=== PATIENT | female | born 1965 | race Caucasian/White ===

== ENCOUNTER 2019-12-05 07:16 | Day surgery (SDC) | payer OTHER, SELFPAY | END 2019-12-05 10:05 | disposition home or self-care (01) | LOC: CHSSURGERY 07:20 | PROVIDERS: PCP Internal Medicine; Visit Provider Surgery | DX: K21.9 Gastro-esophageal reflux disease without esophagitis (principal); K29.80 Duodenitis without bleeding; K44.9 Diaphragmatic hernia without obstruction or gangrene | CPT/HCPCS: 43239; 811; 87081; 88305; J2704; J7120 ==

== ENCOUNTER 2019-12-18 09:54 | Outpatient (CLI) | payer OTHER, SELFPAY ==
--- NOTE | ~2019-12-18 | DEXA_ITS ---
Bone Density Report Name: Lisa Garcias Age: 53 Sex: Female Ethnicity: White Date of : 1965 Indication: osteopenia; prior fracture; cancer; postmenopausal Referring Provider: Keshia Parker Study: Bone densitometry was performed. Exam Date: December 18, 2019 Accession number: [id number] Bone Density: Region BMD T-score Z-score Classification AP Spine (L1-L4) 0.797 -2.3 -1.3 Osteopenia Femoral Neck (Left) 0.675 -1.6 -0.6 Osteopenia Total Hip (Left) 0.859 -0.7 -0.1 Normal Total Hip Bilateral Avg 0.825 -0.9 -0.4 Normal Femoral Neck (Right) 0.618 -2.1 -1.1 Osteopenia Total Hip (Right) 0.790 -1.2 -0.6 Osteopenia World Health Organization criteria for BMD impression classify patients as: Normal (T-score at or above -1.0), Osteopenia (T-score between -1.0 and -2.5), or Osteoporosis (T-score at or below -2.5). 10-year Fracture Risk(1): Major Osteoporotic Fracture 13% Hip Fracture 1.7% Reported Risk Factors: [place] (), Neck BMD=0.618, BMI=30.2, previous fracture (1) FRAX(R) Version 3.08. Fracture probability calculated for an untreated patient. Fracture probability may be lower if the patient has received treatment. Previous Exams: Region Exam Age BMD T-score BMD Change BMD Change Date g/cm2 vs Baseline vs Previous AP Spine(L1-L4) 12/18/2019 53 0.797 -2.3 -0.027(-3.3%)* -0.014(-1.7%) 11/30/2016 50 0.810 -2.2 -0.014(-1.7%) -0.014(-1.7%) 11/11/2014 48 0.824 -2.0 Total Hip(Left) 12/18/2019 53 0.859 -0.7 0.051(6.3%)* 0.029(3.5%)* 11/30/2016 50 0.830 -0.9 0.022(2.7%) 0.022(2.7%) 11/11/2014 48 0.808 -1.1 Total Hip(Right) 12/18/2019 53 0.790 -1.2 0.029(3.8%)* 0.030(3.9%)* 11/30/2016 50 0.760 -1.5 -0.001(-0.1%) -0.001(-0.1%) 11/11/2014 48 0.761 -1.5 *Denotes significance at 95% confidence level, LSC for AP Spine = 0.022 g/cm2, LSC for Total Hip = 0.027 g/cm2 Clinical Information Provided by Patient: Has had a low trauma fracture Has the following medical conditions: Cancer Patient maximum height was 62 Menopause Age: 46 No regular weight bearing exercise Does not regularly consume dairy products Drinks caffeinated beverages Onset of menses at age 13 Number of children 4 Impression: The patient has low bone mass, based on the Total Spine T-score. The patient has an estimated ten-year risk of hip fracture of 1.7% and an estimated ten-year risk of major fracture of 13%, bas
--- NOTE | ~2019-12-18 | MM_ITS ---
EXAMINATION: MM screening betzy BI w tea HISTORY: Screening mammogram TECHNIQUE: Craniocaudal and mediolateral oblique 3-D tomosynthesis images were obtained and synthetic 2-D images were generated. CAD analysis was submitted and interpreted. COMPARISON: Comparison to multiple prior studies sequentially, with oldest reviewed study dated 07/24. BREAST PARENCHYMAL COMPOSITION: There are scattered areas of fibroglandular density. FINDINGS: There is no evidence of suspicious mass, calcification, or architectural distortion to sugg est malignancy in either breast. There has been no suspicious interval change. IMPRESSION: 1. No mammographic evidence of malignancy. 2. Recommend routine screening mammography in one year. BI-RADS Category 1: Negative Reviewed, dictated and finalized at location A. 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
== END 2019-12-18 09:55 | disposition home or self-care (01) ==
LOC: ANHIMG 09:57
PROVIDERS: PCP Internal Medicine; Visit Provider Internal Medicine
DX: Z12.31 Encounter for screening mammogram for malignant neoplasm of breast (principal); Z78.0 Asymptomatic menopausal state; M85.89 Other specified disorders of bone density and structure, multiple sites
CPT/HCPCS: 77063; 77067; 77080

== ENCOUNTER 2020-01-22 08:20 | Outpatient (CLI) | payer OTHER, SELFPAY ==
--- NOTE | ~2020-01-22 | NM_ITS ---
EXAMINATION: NM hepatobiliary w pharm DATE: 01/22/2020 10:53 INDICATION: Right upper quadrant abdominal pain. COMPARISON: Ultrasound 01/22/2020 TECHNIQUE: 4.9 mCi Tc-99m mebrofenin (Choletec) was administered intravenously. Scintigraphic images of the abdomen were obtained for one hour. Then, 1.5 mcg sincalide (Kinevac) IV was administered, an d imaging was continued for 30 minutes. FINDINGS: There is normal clearance of radiotracer from the blood pool. There is homogeneous tracer u ptake by the liver. Activity progresses to the bowel and gallbladder. Gallbladder ejection fraction (GBEF) was 56%. Note that most patients with gallbladder dysfunction have GBEF < 35%, which overlaps with the broad normal range of 10-90%. IMPRESSION: 1. Normal hepatobiliary scintigraphy. Reviewed, dictated and finalized at location A.
--- NOTE | ~2020-01-22 | US_ITS ---
EXAMINATION: US right upper quadrant DATE: 01/22/2020 08:52 INDICATION: Epigastric pain and nausea TECHNIQUE: Multiple grayscale and Doppler ultrasound images of the abdomen were obtained. COMPARISON: None available FINDINGS: The head and and body of the pancreas are normal. The pancreatic tail is obscured by bowel gas. The liver is normal with normal echogenicity and echotexture. No surface nodularity. Normal hepa topetal flow in the main portal vein. The gallbladder is normal with no abnormal wall thickening, per icholecystic fluid or stones. The normal common bile duct measures 4 mm. There was no sonographic Mur phy sign. IMPRESSION: 1. Normal sonographic study of the gallbladder. Reviewed, dictated and finalized at location A.
== END 2020-01-22 08:21 | disposition home or self-care (01) ==
LOC: CHSIMG 08:23
PROVIDERS: PCP Internal Medicine; Visit Provider Internal Medicine
DX: R10.11 Right upper quadrant pain (principal)
CPT/HCPCS: 76705; 78227; A9537; J2805

== ENCOUNTER 2020-03-31 12:55 | Outpatient (CLI) | payer OTHER, SELFPAY ==
--- NOTE | 2020-03-31 12:59 | ECHO_ITS ---
Patient Info Name: Lisa Garcias Age: 54 years : 1965 Gender: Female Ht: 62 in Wt: 168 lbs BSA: 1.85 m2 HR: 65 bpm BP: 134 / 92 mmHg Technical Quality: Good Exam Date: 03/31/2020 1:07 PM Exam Location: [facility] Patient Status: Outpatient Admit Date: 03/31/2020 Staff Ordering Physician: Aleksey Pelayo DO Waste Reduction Coordinator: Anita Walker RDCS Attending Provider: Aleksey Pelayo DO Referring Physician: Pierce LOVE; Exam Type: CA echo doppler color flow Study Info Indications R06.00 - Dyspnea, unspecified Complete two-dimensional, color flow and Doppler transthoracic echocardiogram is performed. Summary 1. Left ventricular chamber dimension is normal. 2. Left ventricular systolic function is normal, estimated at 60-65%. 3. The left ventricular diastolic function is normal. 4. E/e' 8 is minimally elevated. 5. Global longitudinal strain is normal at -17.3%. 6. There is trace mitral valve regurgitation. 7. No pulmonary hypertension, estimated pulmonary arterial systolic pressure is 24 mmHg. Left Ventricle E/e' 8 is minimally elevated. Global longitudinal strain is normal at -17.3%. Left ventricular chamber dimension is normal. Left ventricular systolic function is normal, estimated at 60-65%. The left ventricular diastolic function is normal. Right Ventricle Right ventricular chamber dimension is normal. Right ventricular systolic function is normal. Left Atria Left atrial chamber dimension is normal. Right Atria Right atrial chamber dimension is normal. Aortic Valve The aortic valve is trileaflet. There is no aortic valve stenosis. There is no aortic valve regurgitation. Pulmonic Valve There is no pulmonic regurgitation. Mitral Valve There is no mitral valve stenosis. There is trace mitral valve regurgitation. Tricuspid Valve There is no tricuspid valve regurgitation. No pulmonary hypertension, estimated pulmonary arterial systolic pressure is 24 mmHg. Pericardium/Pleural There is no pericardial effusion. Inferior Vena Cava Normal inferior vena cava with >50% collapse upon inspiration consistent with normal right atrial pressure, 5 mmHg. Aorta The aortic root size at the sinus of Valsalva is normal. Left Ventricular Outflow Tract Name Value Normal LVOT 2D LVOT Diameter 1.9 cm LVOT Doppler LVOT Peak Gradient 4 mmHg LVOT Mean Gradient 2 mmHg LVOT VTI 19 cm LVOT VTI/AV VTI Ratio 0.8 LVOT Stroke Volume 55 ml LVOT CO 3.9 l/min LVOT CI 2.1 l/min/m2 Pulmonic Valve Name Value Normal RVOT Doppler RVOT Peak Gradient 2 mmHg PV Doppler
== END 2020-03-31 12:56 | disposition home or self-care (01) ==
PROVIDERS: PCP Internal Medicine; Visit Provider Internal Medicine Cardiovascular Disease
DX: R06.00 Dyspnea, unspecified (principal)
CPT/HCPCS: 93306

== ENCOUNTER 2020-08-14 14:38 | Outpatient (CLI) | payer OTHER, SELFPAY ==
--- NOTE | 2020-09-08 16:17 | WPDHOMESLEEP ---
Sleep Study - Home Unattended Date of Study: 08/14/20 Ordering Provider: Aleksey Pelayo DO Interpreting Physician: Krystal Epstein MD Home Sleep Study Type: Apnea Link Air Height: 1.57 m Weight: 71.214 kg Body Mass Index: 28.7 [place]: 2 Reason for Sleep Study Fatigue, snoring, wakes herself snoring Sleep History Lisa Garcias is a 54 yo female with a history of fatigue, anxiety and depression. She rarely awakens from sleep feeling short of breath and rarely awakens at night with heartburn, belching or coughing. She is certain that she snores and at times, wakes herself up gasping for breath. She occasionally has trouble sleeping with a cold. She rarely has breathing problems at night reported to her by others. She rarely sweats excessively at night. She does not notice her heart pounding or beating irregularly at night. She does not fall asleep during the day, does not fall asleep involuntarily or while driving. She does not have loss of muscle tone was strong emotion. She does not have daytime difficulties due to excessive sleepiness. She currently is not working. She does not feel paralyzed on waking or falling asleep. She does rarely has vivid dreamlike scenes upon awakening or falling asleep. She is never afraid to go to sleep. she rarely has nightmares. She occasionally remembers her dreams. She occasionally has racing thoughts and occasionally feels sad depressed or anxious. She occasionally has muscular tension. She never notices parts of her body jerking. She frequently kicks at night, frequently has crawling aching feelings in the legs and leg pain during the night. She frequently has morning jaw pain. She frequently grinds her teeth during sleep. She occasionally has bothered by pain during the day. She occasionally awakens with pain at night. She constantly wakes up feeling stiff in the morning, rarely with sore or achy muscles, but she frequently wakes with pain in the neck and spine. She has headaches, palpitations, fatigue, dizziness, stomach problems, and memory problems. Normal bedtime is 10:00 p.m. falling asleep within 15 minutes waking 3 times during the night staying awake for about 10 minutes. She will let her dog out, go to the bathroom a few times per night. She wakes in the morning at 6:30 a.m. or 7:00 a.m.. We can schedule is the same. She estimates 8-1/2 hours of sleep at night. 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 She does not usually take naps. A short nap is not refreshing. She is drowsy in the morning for an hour or longer. Habits: Never smoked tobacco. Caffeine 2-3 cups of coffee in the morning. No alcohol or recreational drugs. FOR[facility]LY [facility] Past Medical History Medical History (Updated 09/08/20 @ 16:47 by Krystal Epstein MD) Depression with anxiety Dyslipidemia Heartburn Hiatal hernia History of cervical cancer 2011;s/p chemo/radiation Hyperlipidemia Osteopenia Surgical History Surgical History History of carpal tunnel repair History of inguinal hernia repair History of sinus surgery Status post tonsillectomy Social History Social History (Updated 09/08/20 @ 16:42 by Krystal Epstein MD) Smoking status: Never smoker Alcohol intake: never Substance use: never Medications Home Medications Medication Instructions Recorded Confirmed Type estradiol 0.05 mg/24 hr semiweekly 1 patch TRANSDERM 2XW 03/19/20 03/19/20 History transdermal patch omeprazole 20 mg capsule,delayed 20 mg PO DAILY 03/19/20 03/19/20 History release rosuvastatin 10 mg tablet 10 mg PO DAILY 03/19/20 03/19/20 History Sleep Procedure This test was performed using 4 channel monitoring including respiratory effort channel, snoring channel, heart rate channel, and oxygen saturation channel. This study was scored using CMS guidelines. Sleep Architecture Not applicable for home sleep test. Respiratory Manuela
[2020-09-08 17:07] VITALS: BMI 28.7
== END 2020-08-14 14:39 | disposition home or self-care (01) ==
LOC: ANHCSM 09-22 14:38
PROVIDERS: PCP Internal Medicine; Visit Provider Internal Medicine Cardiovascular Disease
DX: G47.10 Hypersomnia, unspecified (principal); R53.83 Other fatigue
CPT/HCPCS: 95806

== ENCOUNTER 2020-10-13 15:15 | Outpatient (RCR) | payer OTHER, SELFPAY ==
--- NOTE | 2020-09-14 10:55 | PTOPEVAL ---
PHYSICAL THERAPY EVALUATION AND PLAN OF CARE 09-14-2020 The PT evaluation was completed for the diagnosis of B LE lymphedema. Thank you for referring Lisa Garcias to [facility].? Lisa is scheduled to be seen for therapy? 2 x/week for 5 weeks. Please review, sign, date and return this plan of care ANAM. I agree with and certify that the following plan of care is medically necessary. Referring Physician Date Attending Provider: Keshia Parker MD *PT Outpatient Evaluation Start: 09/14/20 09:46 Document 09/14/20 09:40 TYLER (Rec: 09/14/20 10:54 TYLER [id number]) Therapy Assessment Status Assessment Status Assessment Status Evaluation Outpatient Past Medical History Past Medical History Source of Past Medical History Patient Neurological History Hx Other Neurological Disorders Yes: migraines and sinus issues Cardiovascular History Hx Hypercholesterolemia Yes: meds Respiratory History Hx Respiratory Disorders No Significant History Gastrointestinal History Hx Hernia Yes: about 6 yr ago R side Hx Other Gastrointestinal Disorders Yes: diarrhea Musculoskeletal History Hx Orthopedic Surgery Yes: B carpal tunnel surgery Hx Other Musculoskeletal Disorders Yes: joint stiffness all ove, hip pain Endocrine History Hx Endocrine Disorders No Significant History HEENT History Hx Tonsillectomy Yes Hx Other HEENT Disorders Yes: sinus surgery with septum repair Other History Hx Cancer Yes: cervical cancer with radiation and chemo ~ 7 yr ago -non surgical Evaluation Information Problem Diagnosis lymphedema R LE Onset 2017 Prior Level of Function Activity Level (Last 3 Months) Occupation no working outside of home Activity of Daily Living Ability Independent Indoor/Home Mobility Independent Community Mobility Independent Stairs Ability Independent Functional Cognition (Planning, Shopping Independent , Taking Medications) Cooking Yes Cleaning Yes Laundry Yes Shopping Yes Driving Yes Comments Additional Prior Level of Function able to do all home and self Comments care tasks indep Pain Assessment Timing of Pain Assessment Timing of Pain Assessment Assessment Pain Scale Pain Scale Used Numeric (1 - 10) Self Report Pain Assessment Right Leg(s) Reported Pain Level 1 Other Pain Description heavy, tired, sprinkling system irrigator thigh, B feet cold; Lowest Pain Intensity
--- NOTE | 2020-10-12 10:34 | PCPTNOTE ---
cancel today's appt; pt showed up at wrong time today; to be here tomorrow for reevaluation;
--- NOTE | 2020-10-13 16:12 | PTOPEVAL ---
PHYSICAL THERAPY RE-EVALUATION AND UPDATED PLAN OF CARE 10-13-2020 Refer to the clinical summary below for her status, compared to the initial evaluation. PT is to continue 0-2x/week for 3 weeks, for Lisa to obtain her compression knee high garments, complete education for them and assessment of the new garments. Once they are established, will discharge PT services. Thank you for referring Lisa Garcias to [facility].? Please review, sign, date and return this plan of care ANAM. I agree with and certify that the following plan of care is medically necessary. Referring Physician Date Attending Provider: Keshia Parker MD PT Outpatient Re-Evaluation Document 10/13/20 15:15 TYLER (Rec: 10/13/20 16:11 TYLER [id number]) Subjective Information Lisa reports: has been using Query Text:As Reported By Patient/ the home pump daily and really Family likes it, legs feel better and not have as many knots in her legs; sleeping has been good, does not problems with sleeping due to legs; to order knee highs tomorrow; did have some swelling in legs when up and active for 8 hours straight without sitting down; Pain Assessment Timing of Pain Assessment Timing of Pain Assessment Assessment Self Report Self Report Pain Level 0 Pain Score Pain Score 0: Self Report Lymphedema Evaluation Skin Inspection Location Left Lower Extremity,Right Lower Extremity Lymphedema Stage I Skin Inspection Comment R and L LE without any redness or abnormal skin color; no tenderness to touch, no fibrotic tissue over LE's; LE Circumferential Measurement Right LE Lymphedema Side Right Metatarsal Heads (cm) 20 Figure 8 of Ankle (cm) 48 8 cm From Bottom of Foot (cm) 23 12 cm From Bottom of Foot (cm) 23.2 16 cm From Bottom of Foot (cm) 25.4 20 cm From Bottom of Foot (cm) 28 24 cm From Bottom of Foot (cm) 31 28 cm From Bottom of Foot (cm) 34.5 32 cm From Bottom of Foot (cm) 36 36 cm From Bottom of Foot (cm) 35.6 40 cm From Bottom of Foot (cm) 34.4 44 cm From Bottom of Foot (cm) 36.5 48 cm From Bottom of Foot (cm) 40 52 cm From Bottom of Foot (cm) 41.5 56 cm From Bottom of Foot (cm) 47 60 cm From Bottom of Foot (cm) 51 64 cm From Bottom of Foot (cm) 52 Total Left Lower Extremity Right LE: 607.1 cm Circumferential Measurement (cm) Additional Lower Extremity Reduction 17.5 cm from
--- NOTE | 2020-11-04 11:39 | PCPTNOTE ---
PHYSICAL THERAPY DISCHARGE 11-04-2020 Attending Provider: Keshia Parker MD Patient:Lisa Garcias Date of :1965 Mrs. Garcias has not returned for any further treatments since the reevaluation on 10/13/2020, therefore she will be discharged at this time. Refer to the last reevaluation for her status at the last appointment. Thank you for referring Lisa to [facility]. Please review, sign, date and return this discharge summary ANAM. I have been updated about the patient's current status and I agree with discharge from the above service at this time. Referring Physician Date
== END 2020-11-05 11:19 | disposition home or self-care (01) ==
LOC: ANHPT 15:15
PROVIDERS: PCP Internal Medicine; Visit Provider Internal Medicine
DX: I89.0 Lymphedema, not elsewhere classified (principal)
CPT/HCPCS: 29581; 97016; 97140; 97161

== ENCOUNTER 2020-11-23 10:35 | Outpatient (CLI) | payer OTHER, SELFPAY ==
--- NOTE | ~2020-11-23 | XR_ITS ---
XR knee RT 3V DATE: 11/23/2020 11:01 INDICATION: Generalized right knee pain for one week. No known injury. TECHNIQUE: [place], AP and lateral views COMPARISON: None FINDINGS: Large suprapatellar knee joint effusion. Minimal periarticular spurring of the patella. No fracture or dislocation, periosteal reaction or bone destruction. No radiopaque intra-articular lo ose body or chondrocalcinosis. IMPRESSION: Large suprapatellar knee joint effusion Reviewed, dictated and finalized at location A. 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
== END 2020-11-23 10:36 | disposition home or self-care (01) ==
PROVIDERS: PCP Internal Medicine; Visit Provider Internal Medicine
DX: M25.561 Pain in right knee (principal)
CPT/HCPCS: 73562

== ENCOUNTER 2021-02-04 18:11 | Emergency (ER) | payer OTHER, SELFPAY ==
--- NOTE | ~2021-02-04 | CT_ITS ---
EXAMINATION: CT abdomen pelvis w con DATE: 02/04/2021 19:35 INDICATION: Low abdominal pain, nausea since this morning TECHNIQUE: Computed tomography (CT) of the abdomen and pelvis was performed with 100 cc Omnipaque 350 intravenous contrast. Automated exposure control and iterative reconstruction technique were employe d. Exam dose: 732.72 mGy-cm total exam DLP. COMPARISON: 01/22/2020 right upper quadrant abdominal ultrasound, reported normal 01/22/2020 at hepatobiliary scan, reported normal 11/13/2014 CT abdomen pelvis FINDINGS: Small bilateral fat-containing foramen of Bochdalek hernias. No infiltrate or consolidation at the lung bases. Normal heart size. No pericardial or pleural effusion. Small sliding hiatal hernia. The gallbladder is present. No pericholecystic fluid or fat stranding. Several small hepatic cysts are noted. No suspicious hepatic space-occupying mass lesion is noted. No bile duct or pancreatic duct dilatation. No pancreatic mass lesion or calcification. Normal splenic size. Occasional calcified splenic granulomas. Normal morphology of the adrenal glands. Several small left renal cysts, the largest approximately 4 mm. No other renal space occupying mass l esion is evident. No urinary tract calculus or hydroureteronephrosis is evident. Normal caliber of the abdominal aorta. No intraperitoneal or retroperitoneal or pelvic mass lesion or adenopathy or ascites is noted. There is prominent fluid accumulation within the endometrial cavity of the uterus, measuring up to 17 mm AP dimension. Gynecologic consult is recommended. Metallic artifact, apparently surgical clips, are noted in the anterior margin of the uterine cervica l area. Correlation with surgical history is recommended. The urinary bladder is unremarkable. No bowel obstruction, bowel wall thickening, pneumatosis or intraperitoneal free air is evident. No i ntraperitoneal free air. No suspicious osteolytic or osteoblastic lesions are noted. There is minimal grade 1 anterolisthesis at L4-5 due to degenerative change at the apophyseal joints. IMPRESSION: Prominent fluid distention of the endometrial cavity; endometrial malignancy is not excluded. Gynecol ogic consultation is recommended. Small sliding hiatal hernia Small left renal cysts Reviewed, dictated and finalized at [facility]. Reviewed, dictated and finalized at location [facility]. IMPRESSION: Prominent fluid distention of the endometrial cavity; endometrial malignancy is not excluded. Gynecologic consultation is recommended. Small sliding hiatal hernia Small left renal cysts
[2021-02-04 18:22] VITALS: BP 140/87; PULSE 88; RESP 16; TEMP 36.6; O2SAT 98
--- NOTE | 2021-02-04 18:31 | ECG_ITS ---
Measurements Intervals [place] Rate: 76 P: 65 SD: 176 QRS: 75 QRSD: 92 T: 57 QT: 410 QTc: 463 Interpretive Statements SINUS RHYTHM INCOMPLETE RIGHT BUNDLE BRANCH BLOCK BORDERLINE T WAVE ABNORMALITY- ANTERIOR LEADS BASELINE ARTIFACT- I, II, AVR, AVL, AVF, V1 BORDERLINE ECG Electronically Signed On 02-05-2021 0:19:13 CDT by Aleksey Pelayo D.O.
--- NOTE | 2021-02-04 18:44 | PC.NURSE ---
PT STATES SHE IS UNABLE TO PROVIDE URINE AT THIS TIME. CALL LIGHT GIVEN.
[2021-02-04] MEDS: ONDANSETRON INJ 4 MG/2 ML VIAL IV PUSH (18:47)
[2021-02-04] MEDS: SODIUM CHLORIDE 0.9% IV 1,000 ML 999 ML IV CONT (18:47)
[2021-02-04 18:52] LABS: Basophils Absolute Auto 0.02 K/mm3 (0.00-0.10); Basophils Percent Auto 0.5 % (0.0-1.0); Eosinophils Absolute Auto 0.09 K/mm3 (0.02-0.50); Eosinophils Percent Auto 2.1 % (1.0-6.0); Hematocrit 41.5 % (35.0-49.0); Hemoglobin 13.8 g/dL (12.0-15.0); Immature Granulocyte Absolute 0.01 K/mm3 (0.00-0.00); Immature Granulocyte Percent A 0.2 % (0.0-0.0); Lymphocytes Absolute Auto 1.42 K/mm3 (1.10-4.50); Lymphocytes Percent Auto 33.6 % (18.0-42.0); Mean Corpuscular HGB Conc 33.3 g/dL (32.0-36.0); Mean Corpuscular Volume 87.2 fL (78.0-102.0); Mean Platelet Volume 10.6 fl (9.2-11.8); Monocytes Absolute Auto 0.24 K/mm3 (0.10-0.90); Monocytes Percent Auto 5.7 % (2.0-11.0); Neutrophils Absolute Auto 2.5 K/mm3 (1.7-7.2); Neutrophils Percent Auto 57.9 % (50.0-70.0); Platelet Count Result 233 K/mm3 (150-420); Red Blood Count 4.76 M/mm3 (4.20-5.40); Red Cell Distribution Width 12.1 % (11.6-14.4); White Blood Count 4.2 K/mm3 (4.8-10.8)
--- NOTE | 2021-02-04 19:08 | PC.NURSE ---
Pt ambulatory to bathroom, urine sent to lab.
[2021-02-04 19:10] LABS: Alanine Aminotransferase 35 U/L (14-59); Albumin Level 3.7 g/dL (3.4-5.0); Alkaline Phosphatase 70 U/L (46-116); Anion Gap 7 mmol/L (8-16); Aspartate Amino Transferase 21 U/L (15-37); Bilirubin,Total 0.3 mg/dL (0.00-1.00); Blood Urea Nitrogen 16 mg/dL (7-18); Calcium 8.8 mg/dL (8.5-10.1); Carbon Dioxide 29 mmol/L (21-32); Chloride 104 mmol/L (98-108); Estimated CRCL calculation 54 ml/min; Estimated Glomerular Filt Rate 60; Glucose 86 mg/dL (70-99); Lactic Acid Reflex 0.4 mmol/L (0.4-2.0); Lipase 195 U/L (73-393); Osmolality Calculated 290 mOsm/kg (285-295); Potassium 3.4 mmol/L (3.5-5.1); Sodium 140 mmol/L (136-145)
--- NOTE | 2021-02-04 19:11 | PC.NURSE ---
report to usman
[2021-02-04 19:17] LABS: Add Urine Microscopic? NO; Appearance Urine Clear (Clear); Bilirubin Urine Negative (Negative); Blood Urine Negative (Negative); Color Urine Yellow (Yellow); Glucose Urine UA Negative (Negative); Ketones Urine Negative (Negative); Leukocyte Esterase Ur Negative LEU/UL (Negative); Nitrate Urine Negative (Negative); Protein Urine Negative (Negative); Urobilinogen Urine 0.2 mg/dL (0.2-1.0); pH Urine 5.5 (5.0-8.0)
[2021-02-04 19:26] LABS: Troponin I < 4.0 ng/L (0.00-60.4)
--- NOTE | 2021-02-04 20:13 | ED.GENADULT ---
HPI - General Adult General Chief complaint: Abdominal Pain Stated complaint: stomach pain, low back pain,stabbing in lower abd Source: patient Mode of arrival: ambulatory History of Present Illness HPI narrative: this is a 55-year-old female with a history of cervical cancer has been treated with chemotherapy, follows at the [facility]. The patient presents with abdominal pain suprapubic and right lower quadrant and into her right flank area started 2 to 3 days ago is intermittent sharp in nature and with some watery diarrhea and some nausea with no vomiting, no fever chills no shortness of breath no chest pain no dysuria no hematuria. Onset (ago): day(s) Location: abdomen Radiation: back, periumbilical and flank Severity: moderate Severity scale (1-10): 6 Quality: sharp Pain Consistency: intermittent and colicky Relieving factors: none Exacerbating factors: none Associated symptoms: nausea/vomiting Related Data Home Medications Medication Instructions Recorded Confirmed estradiol 0.05 mg/24 hr semiweekly 1 patch TRANSDERM 2XW 03/19/20 02/04/21 transdermal patch omeprazole 20 mg capsule,delayed 20 mg PO DAILY 03/19/20 02/04/21 release phentermine 9.375 mg PO DAILY 02/04/21 02/04/21 Allergies Allergy/AdvReac Type Severity Reaction Status Date / Time No Known Allergies Allergy Unverified 03/19/20 10:41 Review of Systems Review of Systems: All systems reviewed & are unremarkable except as noted in HPI and below PMFSH Past Medical History Medical History Depression with anxiety Dyslipidemia Heartburn Hiatal hernia History of cervical cancer 2011;s/p chemo/radiation Hyperlipidemia Osteopenia Surgical History Surgical History History of carpal tunnel repair History of inguinal hernia repair History of sinus surgery Status post tonsillectomy Social History Social History Smoking status: Never smoker Alcohol intake: never Substance use: never Exam Const: General: no acute distress Orientation/consciousness: patient oriented x3 HENMT: Head: normal to inspection Eyes: Conjunctivae: conjunctivae normal Pupils: Equal, round and reactive pupils present EOM: EOMs intact bilaterally Neck: Neck: normal visual inspection, no lymphadenopathy and no meningeal signs Chest: Chest palpation & inspection: normal inspection of the chest Cardio: Rate: regular rate Rhythm: regular rhythm GI: GI Palp: Yes Soft to palpation and Yes Tenderness to palpation present (GI) ( Tender mid umbilical suprapubic right lower quadrant and right flank pain) Auscultation: normal bowel sounds : General: Yes CVA tenderness Back/Spine/Pelvis: Back: CVA tenderness Skin: General skin exam: normal color Rashes: no rashes Neuro: General: patient oriented x3, moves all extremities and no meningeal signs Course Course Emergency Course: patient had nausea had received IV fluids, pain was well controlled prior to arrival and during her ER visit although she had nausea and received Zofran, the pain has been intermittent with watery diarrhea, received IV fluids had lab work that was reviewed with patient and her , with her history of cervical cancer and is followed by gynecology at the [facility], reviewed the CT scan with patient and her and there was distension of the endometrium and malignancy could not be excluded and radiology reported advised to follow and consult Gynecology. Vital Signs Vital signs: Vital Signs Temperature 36.6 C 02/04/21 18:22 Pulse Rate 88 02/04/21 18:22 Respiratory Rate 16 02/04/21 18:22 Blood Pressure 140/87 02/04/21 18:22 Pulse Oximetry 98 02/04/21 18:22 Temperature 36.6 C 02/04/21 18:22 Pulse Rate 88 02/04/21 18:22 Respiratory Rate 16 02/04/21 18:22 Blood Pressure 1
[2021-02-04] MEDS: ONDANSETRON HCL ODT 4 MG TABLET PO (20:16)
[2021-02-04] MEDS: traMADol HCL (*CRX) 50 MG TABLET PO (20:16)
[2021-02-04 20:21] VITALS: BP 131/95; PULSE 80; RESP 20; TEMP 36.6; O2SAT 98
== END 2021-02-04 20:29 | disposition home or self-care (01) ==
PROVIDERS: Emergency Provider Emergency Medicine; PCP Internal Medicine
DX: K52.9 Noninfective gastroenteritis and colitis, unspecified (principal); R10.11 Right upper quadrant pain
CPT/HCPCS: 36415; 74177; 80053; 81003; 83605; 83690; 84484; 85025; 93005; 96361; 96374; 99283; 99284; A9270; J2405; J7030; Q9967

== ENCOUNTER 2021-04-03 09:48 | Emergency (ER) | payer OTHER, SELFPAY ==
[2021-04-03 10:05] VITALS: BP 123/88; PULSE 91; RESP 17; TEMP 36.8; O2SAT 96
--- NOTE | 2021-04-03 10:15 | ED.FEVER ---
HPI - Fever General Chief Complaint: Fever Stated Complaint: covid symptoms Time Seen by Provider: 04/03/21 10:16 Source: patient Mode of arrival: ambulatory Limitations: no limitations History of Present Illness HPI Narrative: 55-year-old woman comes in today complaining of headache, body aches, fever, and nausea that started overnight. She states her temperature got up to 100.8. She states she has also had the chills. She recently started taking hormone therapy. She states that she has had some congestion and pressure in the left side of her nose and some ageusia but denies any cough, shortness of breath, chest pain, sore throat, or rash. She denies sick exposures and had the covid vaccine one week ago. MD elicited complaint: fever Onset (ago): hour(s) (12) Measured temperature: 38.2 C Exacerbating factors: nothing Relieving factors: nothing Associated symptoms: chills, myalgias, headache and nasal congestion Related Data Home Medications Medication Instructions Recorded Confirmed medroxyprogesterone 10 mg PO DAILY 04/03/21 04/03/21 Allergies Allergy/AdvReac Type Severity Reaction Status Date / Time No Known Allergies Allergy Unverified 03/19/20 10:41 Review of Systems Review of Systems: All systems reviewed & are unremarkable except as noted in HPI and below Constitutional: Constitutional: Reports chills and Reports fever(s) ENT: Denies dysphagia, Reports nasal congestion and Denies sore throat Cardiovascular: Cardiovascular: Denies chest pain and Denies radiating jaw, neck or arm pain Respiratory: Respiratory: Denies cough and Denies dyspnea Gastrointestinal: Gastrointestinal: Denies abdominal pain, Reports diarrhea (chronic), Denies nausea and Denies vomiting Genitourinary: Genitourinary: Denies hematuria and Denies dysuria Musculoskeletal: Musculoskeletal: Denies arthralgias and Denies joint swelling Integumentary/Breasts: Skin/Breast: Denies pruritus, Denies erythema and Denies rash Neurologic: Denies confusion, Reports headache(s), Denies numbness and Denies weakness Hematologic/Lymphatic: Hematologic/Lymphatic: Denies easy bleeding and Denies easy bruising Allergic/Immunologic: Allergic/Immunologic: Denies lip swelling and Denies throat swelling PMFSH Past Medical History Medical History Depression with anxiety Dyslipidemia Heartburn Hiatal hernia History of cervical cancer 2011;s/p chemo/radiation Hyperlipidemia Osteopenia Surgical History Surgical History History of carpal tunnel repair History of inguinal hernia repair History of sinus surgery Status post tonsillectomy Social History Social History Smoking status: Never smoker Alcohol intake: never Substance use: never Exam Const: General: healthy appearing, no acute distress and alert Orientation/consciousness: patient oriented x3 Limitations: no limitations HENMT: Head: normal to inspection Ears: TM's normal bilaterally and EAC's normal General nose exam: Normal nares present Face and sinus: normal facial exam Mouth: Yes moist mucous membranes Throat: posterior oropharynx normal Eyes: Conjunctivae: conjunctivae normal Pupils: Equal, round and reactive pupils present EOM: EOMs intact bilaterally Resp: Effort & Inspection: normal respiratory effort and not labored Auscultation: clear to auscultation bilaterally, no rales, no rhonchi and no wheezes Cardio: Rate: regular rate Rhythm: regular rhythm Heart sounds: no murmurs GI: GI Palp: Yes Soft to palpation, No Tenderness to palpation present (GI) and No Palpable mass present Skin: General skin exam: normal color, no jaundice and no pallor Rashes: no rashes Neuro: General: patient oriented x3, moves all extremities, no focal motor deficits and CN's II-XI intact bilaterally Speech: no
[2021-04-03 10:37] LABS: Appearance Urine Clear (Clear); Bilirubin Urine Negative (Negative); Blood Urine Negative (Negative); Glucose Urine UA Negative (Negative); Ketones Urine Negative (Negative); Leukocyte Esterase Ur Negative (Negative); Nitrate Urine Negative (Negative); Protein Urine Negative (Negative); Specific Grav Ur <= 1.005 (1.010-1.020); Urobilinogen Urine 0.2 mg/dL (0.2-1.0)
[2021-04-03 10:41] LABS: Add Urine Microscopic? NO; Color Urine Light Yellow (Yellow)
[2021-04-03 10:59] LABS: Influenza Control Valid (Valid)
[2021-04-03 11:28] LABS: SARS-CoV-2 RNA PCR Negative (Negative)
[2021-04-03 11:50] VITALS: RESP 17
[2021-04-03] MEDS: ACETAMINOPHEN 500 MG TABLET 1000 MG (11:50)
== END 2021-04-03 11:50 | disposition home or self-care (01) ==
PROVIDERS: Emergency Provider Emergency Medicine; PCP Internal Medicine
DX: B34.9 Viral infection, unspecified (principal); Z20.822 Contact with and (suspected) exposure to COVID-19
CPT/HCPCS: 81003; 87804; 99282; 99283; C9803; U0003; U0005

== ENCOUNTER 2021-04-21 14:09 | Emergency (ER) | payer OTHER, SELFPAY ==
--- NOTE | ~2021-04-21 | US_ITS ---
EXAMINATION: US pelvic complete w TV DATE: 04/21/2021 15:47 INDICATION: Pelvic pain. TECHNIQUE: Multiple transabdominal and transvaginal sonographic images of the pelvis were obtained. COMPARISON: CT abdomen and pelvis 04/21/2021 FINDINGS: TRANSABDOMINAL ULTRASOUND: The uterus measures 5.7 x 3.3 x 3.8 cm. There is no free fluid in the pelvis. TRANSVAGINAL ULTRASOUND: The endometrial complex measures 2 mm in thickness. There are surgical changes in the cervix. The rig ht ovary is not visualized. The left ovary measures 1.3 x 0.6 x 1.7 cm. There is normal vascular flow in left ovary. IMPRESSION: 1. Surgical changes in the cervix. 2. Normal left ovary. Right ovary not visualized. Reviewed, dictated and finalized at location [facility].
--- NOTE | ~2021-04-21 | CT_ITS ---
EXAMINATION: CT abdomen pelvis wo con DATE: 04/21/2021 15:54 INDICATION: Right lower abdominal pain TECHNIQUE: Computed tomography (CT) of the abdomen and pelvis was performed without intravenous contr ast. The dose-length product (DLP) was 475.56 mGy-cm. Automated exposure control and iterative recons truction technique were employed. COMPARISON: 02/04/2021 FINDINGS: The lung bases are clear. The heart size is normal. There is a small sliding hiatal hernia. Punctate calcifications in an otherwise normal spleen likely represent healed granulomatous disease. The liver, pancreas, gallbladder, and adrenal glands are normal. The right kidney is unremarkable. T here is 3 mm fat attenuation lesion of the left kidney consistent with an angiomyolipoma. No patholog ically enlarged abdominal or pelvic lymph nodes are identified. There is no free intraperitoneal gas or evidence of bowel obstruction. There are surgical changes in the cervix. There is a small amount o f gas in the subcutaneous tissues of the right buttock, likely an injection site. The appendix is not visualized. IMPRESSION: 1. No CT correlate for the patient's symptoms. Reviewed, dictated and finalized at location [facility].
[2021-04-21 14:12] VITALS: BP 145/101; PULSE 88; RESP 18; TEMP 36.6; O2SAT 99
[2021-04-21] MEDS: KETOROLAC (*BKC) 60 MG/2 ML VIAL IM (14:49)
[2021-04-21] MEDS: MORPHINE SULFATE (*CRX) 2 MG/ML INJ IV PUSH (14:58)
[2021-04-21] MEDS: ONDANSETRON INJ 4 MG/2 ML VIAL IV PUSH (15:00)
--- NOTE | 2021-04-21 15:00 | ED.ABDPAIN ---
HPI - Abdominal Pain General Chief Complaint: Abdominal Pain Stated Complaint: Sharp stabbing pains R side abd Time Seen by Provider: 04/21/21 14:11 Source: patient and family Mode of arrival: ambulatory Limitations: no limitations History of Present Illness HPI narrative: Acute and chronic RLQ abdominal pain with sticking sensation + radiation to inner thigh, vagina and rectum. pt has taken tramadol 8pm 04/20 and 1230 pm today. MD elicited complaint: abdominal pain Pertinent past history: other (radiation post cervical cancer with no hysterectomy performed. ) Onset (ago): day(s) (this pain started 04/13/2021) Pain Consistency: constant and colicky Location: RLQ and pelvis Severity: moderate Pain scale (0-10): 8 Quality: cramping, aching, dull and burning Radiation: RLQ Exacerbating factors: nothing Relieving factors: nothing Treatments prior to arrival: prescription analgesics Related Data Hx Last Menstrual Period: pt is menopausal Patient : No Home Medications Medication Instructions Recorded Confirmed conj estrog-medroxyprogest lo 1 tablet PO DAILY 04/21/21 04/21/21 [Prempro] tramadol 50 mg PO PRN 04/21/21 04/21/21 Allergies Allergy/AdvReac Type Severity Reaction Status Date / Time No Known Allergies Allergy Unverified 03/19/20 10:41 Review of Systems Constitutional: Constitutional: Reports as per HPI and Reports no additional constitutional complaints Eyes: Eyes: Reports as per HPI and Reports no additional eye complaints ENT: Reports system reviewed and no additional complaints, except as documented and Reports as per HPI Cardiovascular: Cardiovascular: Reports as per HPI and Reports no additional cardiovascular complaints Respiratory: Respiratory: Reports as per HPI and Reports no additional respiratory complaints Gastrointestinal: Gastrointestinal: Reports as per HPI, Reports no additional gastrointestinal complaints, Reports abdominal pain and Reports bloating Genitourinary: Genitourinary: Reports as per HPI, Reports pelvic pain and Reports flank pain Musculoskeletal: Musculoskeletal: Reports as per HPI and Reports back pain Integumentary/Breasts: Skin/Breast: Reports system reviewed and no additional complaints, except as docu and Reports as per HPI Neurologic: Reports system reviewed and no additional complaints, except as documented and Reports as per HPI Psychiatric: Psychiatric: Reports no additional psychiatric complaints and Reports as per HPI Endocrine: Endocrine: Reports no additional endocrine complaints and Reports as per HPI Hematologic/Lymphatic: Hematologic/Lymphatic: Reports no additional hematologic/lymphatic complaints and Reports as per HPI Allergic/Immunologic: Allergic/Immunologic: Reports no additional allergic/immunologic complaints and Reports as per HPI PMFSH Past Medical History Medical History (Updated 04/21/21 @ 19:19 by Cr Richter MD) Depression with anxiety Dyslipidemia Heartburn Hiatal hernia History of cervical cancer 2011;s/p chemo/radiation Hyperlipidemia Osteopenia Pelvic pain pelvic pain Surgical History Surgical History History of carpal tunnel repair History of inguinal hernia repair History of sinus surgery Status post tonsillectomy Social History Social History Smoking status: Never smoker Alcohol intake: never Substance use: never Exam Const: General: no acute distress and alert Nutritional Appearance: well nourished Orientation/consciousness: patient oriented x3 HENMT: Head: normal to inspection Ears: external ears normal and TM's normal bilaterally Eyes: Conjunctivae: conjunctivae normal Pupils: Equal, round and reactive pupils present EOM: EOMs intact bilaterally Neck: Neck: normal visual inspection and no lymphadenopathy Chest: Chest palpation & inspection: normal inspection of
[2021-04-21 15:54] LABS: Hemoglobin 12.5 g/dL (12.0-15.0); Mean Corpuscular HGB Conc 33.8 g/dL (32.0-36.0); Mean Corpuscular Hemoglobin 29.3 pg (27.0-31.0); Mean Corpuscular Volume 86.7 fL (78.0-102.0); Mean Platelet Volume 9.7 fl (9.2-11.8); Platelet Count Result 201 K/mm3 (150-420); Red Blood Count 4.27 M/mm3 (4.20-5.40); Red Cell Distribution Width 12.6 % (11.6-14.4); White Blood Count 3.5 K/mm3 (4.8-10.8)
[2021-04-21 15:58] LABS: Add Urine Microscopic? NO; Appearance Urine Clear (Clear); Bilirubin Urine Negative (Negative); Blood Urine Negative (Negative); Color Urine Light Yellow (Yellow); Glucose Urine UA Negative (Negative); Ketones Urine Negative (Negative); Leukocyte Esterase Ur Negative (Negative); Nitrate Urine Negative (Negative); Protein Urine Negative (Negative); Specific Grav Ur <= 1.005 (1.010-1.020); Urobilinogen Urine 0.2 mg/dL (0.2-1.0); pH Urine 6.5 (5.0-8.0)
[2021-04-21 16:08] LABS: Alanine Aminotransferase 33 U/L (14-59); Albumin Level 3.2 g/dL (3.4-5.0); Alkaline Phosphatase 64 U/L (46-116); Anion Gap 12 mmol/L (8-16); Aspartate Amino Transferase 22 U/L (15-37); Bilirubin,Total 0.3 mg/dL (0.00-1.00); Blood Urea Nitrogen 8 mg/dL (7-18); Calcium 8.3 mg/dL (8.5-10.1); Carbon Dioxide 25 mmol/L (21-32); Chloride 105 mmol/L (98-108); Estimated CRCL calculation 59 ml/min; Estimated Glomerular Filt Rate > 60; Glucose 86 mg/dL (70-99); Lactate Dehydrogenase 138 U/L (81-234); Lipase 111 U/L (73-393); Osmolality Calculated 291 mOsm/kg (285-295); Potassium 3.7 mmol/L (3.5-5.1); Sodium 142 mmol/L (136-145); Total Protein 6.3 g/dL (6.4-8.2)
--- NOTE | 2021-04-21 16:22 | PC.NURSE ---
[facility] transfer line associate chasidy contacted at this time in attempt to transfer pt by her request. erp spoke with chasidy as well.
[2021-04-21 18:38] VITALS: BP 120/82; PULSE 76; RESP 14; O2SAT 97
== END 2021-04-21 18:59 | disposition home or self-care (01) ==
PROVIDERS: Emergency Provider Emergency Medicine; PCP Internal Medicine
DX: R10.2 Pelvic and perineal pain (principal)
CPT/HCPCS: 36415; 74176; 76830; 76856; 80053; 81003; 83615; 83690; 85027; 96372; 96374; 96375; 99283; 99284; J1885; J2270; J2405

== ENCOUNTER 2021-10-25 11:09 | Outpatient (CLI) | payer OTHER, SELFPAY ==
[2021-10-25 12:37] LABS: Influenza Control Valid (Valid)
[2021-10-25 13:57] LABS: SARS-CoV-2 Ag Positive (Negative)
== END 2021-10-25 11:10 | disposition home or self-care (01) ==
PROVIDERS: PCP Internal Medicine; Visit Provider Internal Medicine
DX: U07.1 COVID-19 (principal); J06.9 Acute upper respiratory infection, unspecified
CPT/HCPCS: 87081; 87426; 87804; 87880; C9803

== ENCOUNTER 2022-04-06 13:21 | Outpatient (CLI) | payer OTHER, SELFPAY ==
[2022-04-06 14:27] LABS: SARS-CoV-2 RNA PCR Negative (Negative)
== END 2022-04-06 13:22 | disposition home or self-care (01) ==
LOC: CHSLAB 13:23
PROVIDERS: PCP Family Medicine; Visit Provider Family Medicine
DX: J06.9 Acute upper respiratory infection, unspecified (principal)
CPT/HCPCS: C9803; U0003; U0005

== ENCOUNTER 2022-04-08 10:38 | Outpatient (CLI) | payer OTHER, SELFPAY ==
--- NOTE | ~2022-04-08 | XR_ITS ---
EXAMINATION: XR chest 2V 04/08/2022 11:29 INDICATION: Upper respiratory infection, cough and fatigue. PROCEDURE: 2 view chest COMPARISON: 10/26/2016 FINDINGS: The lungs are clear. The cardiomediastinal silhouette is within normal limits. There are no pleural effusions. There is no pneumothorax suspected. IMPRESSION: 1: NO ACUTE CARDIOPULMONARY DISEASE. Reviewed, dictated and finalized at location [facility].
[2022-04-08 11:15] LABS: Mean Corpuscular HGB Conc 33.3 g/dL (32.0-36.0); Mean Corpuscular Hemoglobin 29.5 pg (27.0-31.0); Mean Corpuscular Volume 88.4 fL (78.0-102.0); Mean Platelet Volume 9.3 fl (9.2-11.8); Platelet Count Result 248 K/mm3 (150-420); Red Blood Count 4.75 M/mm3 (4.20-5.40); Red Cell Distribution Width 12.5 % (11.6-14.4)
[2022-04-08 11:30] LABS: Add Urine Microscopic? NO; Appearance Urine Clear (Clear); Bilirubin Urine Negative (Negative); Blood Urine Negative (Negative); Color Urine Light Yellow (Yellow); Glucose Urine UA Negative (Negative); Ketones Urine Negative (Negative); Leukocyte Esterase Ur Negative LEU/UL (Negative); Nitrate Urine Negative (Negative); Protein Urine Negative (Negative); Specific Grav Ur <= 1.005 (1.010-1.020); Urobilinogen Urine 0.2 mg/dL (0.2-1.0)
[2022-04-08 11:45] LABS: Alanine Aminotransferase 30 U/L (14-59); Albumin Level 3.8 g/dL (3.4-5.0); Alkaline Phosphatase 88 U/L (46-116); Anion Gap 4 mmol/L (8-16); Aspartate Amino Transferase 30 U/L (15-37); Bilirubin,Total 0.4 mg/dL (0.00-1.00); Blood Urea Nitrogen 17 mg/dL (7-18); Calcium 9.1 mg/dL (8.5-10.1); Carbon Dioxide 32 mmol/L (21-32); Chloride 103 mmol/L (98-108); Estimated Glomerular Filt Rate > 60; Glucose 87 mg/dL (70-99); Osmolality Calculated 288 mOsm/kg (285-295); Potassium 4.3 mmol/L (3.5-5.1); Sodium 139 mmol/L (136-145); Total Protein 7.8 g/dL (6.4-8.2)
[2022-04-08 12:03] LABS: Band Neutrophils Percent 0 % (0-6); Basophils Percent Manual 0 % (0-1); Eosinophils Absolute Manual 0.04 K/mm3 (0.02-0.5); Eosinophils Percent Manual 1 % (1-6); Lymphocytes Percent Manual 35 % (18-44); Monocytes Absolute Manual 0.16 K/mm3 (0.1-0.90); Monocytes Percent Manual 4 % (3-9); Neutrophils Percent Manual 60 % (46-73); Platelet Estimate Adequate (Adequate); Total Cells Counted 100
== END 2022-04-08 10:39 | disposition home or self-care (01) ==
PROVIDERS: PCP Internal Medicine; Visit Provider Nurse Practitioner Family
DX: J06.9 Acute upper respiratory infection, unspecified (principal); R05.9 Cough, unspecified; R53.83 Other fatigue
CPT/HCPCS: 36415; 71046; 80053; 81003; 85025

== ENCOUNTER 2022-06-28 13:44 | Outpatient (CLI) | payer OTHER, SELFPAY ==
--- NOTE | ~2022-06-28 | XR_ITS ---
EXAMINATION: XR shoulder RT min 2V DATE: 06/28/2022 14:14 INDICATION: Right shoulder pain. TECHNIQUE: 4 views of right shoulder were obtained. COMPARISON: None. FINDINGS: Bone alignment is normal. No fracture. Glenohumeral joint is normal. There is mild acromioc lavicular joint osteoarthritis. Calcified right hilar lymph nodes are consistent with old granulomato us disease. IMPRESSION: 1. Mild right acromioclavicular joint osteoarthritis. Reviewed, dictated and finalized at location [facility].
== END 2022-06-28 13:45 | disposition home or self-care (01) ==
PROVIDERS: PCP Internal Medicine; Visit Provider Nurse Practitioner Family
DX: M25.511 Pain in right shoulder (principal)
CPT/HCPCS: 73030

== ENCOUNTER → 2022-07-21 12:52 | Outpatient (CLI) | payer OTHER, SELFPAY ==
--- NOTE | ~2022-07-21 | MR_ITS ---
EXAMINATION: MR shoulder RT wo con DATE: 07/21/2022 13:35 INDICATION: Right shoulder pain TECHNIQUE: Magnetic resonance imaging (MRI) of the right shoulder was performed without intravenous c ontrast. Sequences included axial PD-weighted FS FSE, coronal oblique PD-weighted FS FSE, coronal obl ique T2-weighted FS FSE, sagittal PD-weighted FS FSE, and sagittal T1-weighted SE. COMPARISON: Right shoulder radiographs dated 06/28/2022 FINDINGS: Coracoacromial arch: The acromion undersurface is curved in morphology (type II) with lateral downsloping. The coracoacrom ial ligament is normal. Mild acromioclavicular osteoarthritis. Rotator cuff: Small region of mild tendinopathy with shallow bursal sided fraying at the posterior distal insertion of the supraspinatus tendon. The infraspinatus, teres minor tendons are normal. Mild subscapularis t endinopathy without tear. Normal rotator cuff muscle bulk and signal. Biceps tendon, glenoid labrum and glenohumeral cartilage: Long head of the biceps tendon is normal. Glenoid labrum is normal with normal anterosuperior subling ual foramen. Mild partial-thickness cartilage loss along the cephalad third of the glenoid and at the apex of the humeral head. Fluid: Physiologic amount of fluid in the glenohumeral joint and biceps tendon sheath. No loose osteochondr al bodies. No abnormal fluid signal in the subacromial/subdeltoid bursa to suggest bursitis. Bones: Normal marrow signal with no edema, fracture or abnormal marrow replacing process. IMPRESSION: 1. Mild glenohumeral and acromioclavicular osteoarthritis. 2. Small region of mild tendinopathy with shallow bursal sided fraying at the distal insertion of the posterior supraspinatus tendon. Reviewed, dictated and finalized at location A. IMPRESSION: 1. Mild glenohumeral and acromioclavicular osteoarthritis. 2. Small region of mild tendinopathy with shallow bursal sided fraying at the d istal insertion of the posterior supraspinatus tendon.
== END ==
PROVIDERS: PCP Internal Medicine; Visit Provider Nurse Practitioner Family
DX: M19.011 Primary osteoarthritis, right shoulder (principal)
CPT/HCPCS: 73221

== ENCOUNTER 2022-09-02 15:21 | Outpatient (CLI) | payer OTHER, SELFPAY ==
[2022-09-02 16:01] LABS: RSV Control CHS Valid (Valid)
== END 2022-09-02 15:22 | disposition home or self-care (01) ==
LOC: CHSLAB 15:23
PROVIDERS: PCP Internal Medicine; Visit Provider Internal Medicine
DX: R05.9 Cough, unspecified (principal); J06.9 Acute upper respiratory infection, unspecified
CPT/HCPCS: 87420

== ENCOUNTER 2022-09-05 11:08 | Emergency (ER) | payer OTHER, SELFPAY ==
--- NOTE | ~2022-09-05 | XR_ITS ---
EXAMINATION: XR chest 2V DATE: 09/05/2022 11:56 INDICATION: Shortness of breath and cough TECHNIQUE: PA and lateral views of the chest were obtained. COMPARISON: Chest radiograph dated 04/08/2022 FINDINGS: The lungs remain clear with no focal airspace opacities, pulmonary edema, pleural effusion or pneumot horax. The cardiomediastinal silhouette is normal. Mild to moderate thoracic spondylosis. IMPRESSION: 1. No acute cardiopulmonary disease. Reviewed, dictated and finalized at location B. E CLERK
[2022-09-05 11:10] VITALS: TEMP 36
[2022-09-05 11:13] VITALS: BP 153/96; PULSE 97; RESP 20; O2SAT 98
[2022-09-05] MEDS: methylPREDNISolone SOD SUCC 125 MG VIAL IV PUSH (11:35)
[2022-09-05 11:36] VITALS: PULSE 85; RESP 20; O2SAT 97
[2022-09-05] MEDS: IPRATROPIUM 0.5 MG/ALBUTEROL SULFATE 2.5 MG AMPUL.NEB 3 ML INHALATION (11:36)
[2022-09-05 11:39] LABS: Basophils Absolute Auto 0.03 K/mm3 (0.00-0.10); Basophils Percent Auto 0.5 % (0.0-1.0); Eosinophils Absolute Auto 0.14 K/mm3 (0.02-0.50); Eosinophils Percent Auto 2.2 % (1.0-6.0); Hematocrit 43.9 % (35.0-49.0); Hemoglobin 14.2 g/dL (12.0-15.0); Immature Granulocyte Absolute 0.02 K/mm3 (0.00-0.00); Immature Granulocyte Percent A 0.3 % (0.0-0.0); Lymphocytes Absolute Auto 2.13 K/mm3 (1.10-4.50); Lymphocytes Percent Auto 33.1 % (18.0-42.0); Mean Corpuscular HGB Conc 32.3 g/dL (32.0-36.0); Mean Corpuscular Hemoglobin 28.9 pg (27.0-31.0); Mean Corpuscular Volume 89.4 fL (78.0-102.0); Mean Platelet Volume 9.6 fl (9.2-11.8); Monocytes Absolute Auto 0.46 K/mm3 (0.10-0.90); Monocytes Percent Auto 7.1 % (2.0-11.0); Neutrophils Absolute Auto 3.7 K/mm3 (1.7-7.2); Neutrophils Percent Auto 56.8 % (50.0-70.0); Platelet Count Result 270 K/mm3 (150-420); Red Blood Count 4.91 M/mm3 (4.20-5.40); Red Cell Distribution Width 12.1 % (11.6-14.4); White Blood Count 6.4 K/mm3 (4.8-10.8)
[2022-09-05 11:48] VITALS: PULSE 88; RESP 18; O2SAT 100
[2022-09-05 11:55] LABS: Alanine Aminotransferase 25 U/L (14-59); Albumin Level 3.4 g/dL (3.4-5.0); Alkaline Phosphatase 76 U/L (46-116); Anion Gap 6 mmol/L (8-16); Aspartate Amino Transferase 14 U/L (15-37); Bilirubin,Total 0.3 mg/dL (0.00-1.00); Blood Urea Nitrogen 15 mg/dL (7-18); Calcium 8.4 mg/dL (8.5-10.1); Carbon Dioxide 30 mmol/L (21-32); Chloride 108 mmol/L (98-108); Estimated CRCL calculation 55 ml/min; Estimated Glomerular Filt Rate > 60; Glucose 88 mg/dL (70-99); Osmolality Calculated 297 mOsm/kg (285-295); Sodium 144 mmol/L (136-145); Total Protein 6.8 g/dL (6.4-8.2)
--- NOTE | 2022-09-05 12:10 | ED.URI ---
HPI - URI/Sore Throat General Chief Complaint: Upper Respiratory Infection Stated Complaint: BRONCHITIS RSV SYMPTOMS WORSENING Time Seen by Provider: 09/05/22 11:08 Source: patient and family Mode of arrival: ambulatory Limitations: no limitations History of Present Illness HPI Narrative: this is a 56-year-old female that presents with cough and congestion with shortness of breath, the patient was recently diagnosed with RSV, completed a course of antibiotics and a Medrol Dosepak and given an inhaler by her primary care physician, patient was tested for COVID and was negative, otherwise cough is nonproductive with no audible wheezing no fever chills no chest pain no abdominal pain. MD elicited complaint: cough and nasal congestion Pertinent past history: other Onset (ago): day(s) Consistency: constant Severity: moderate Related Data Home Medications Medication Instructions Recorded Confirmed albuterol sulfate 90 mcg/actuation 2 puff inhalation Q4-6H PRN Cough 09/05/22 09/05/22 aerosol inhaler estradiol 0.045 mg-levonorgestrel 1 patch topical WEEKLY 09/05/22 09/05/22 0.015 mg/24hr weekly transderm patch (Climara Pro) Allergies Allergy/AdvReac Type Severity Reaction Status Date / Time No Known Allergies Allergy Verified 09/05/22 11:22 Review of Systems Review of Systems: All systems reviewed & are unremarkable except as noted in HPI and below PMFSH Past Medical History Medical History Depression with anxiety Dyslipidemia Heartburn Hiatal hernia History of cervical cancer 2011;s/p chemo/radiation Hyperlipidemia Osteopenia Pelvic pain pelvic pain Surgical History Surgical History History of carpal tunnel repair History of inguinal hernia repair History of sinus surgery Status post tonsillectomy Social History Social History Smoking status: Never smoker Alcohol intake: never Substance use: never Exam Const: General: healthy appearing Nutritional Appearance: well nourished Orientation/consciousness: patient oriented x3 Limitations: no limitations HENMT: Head: normal to inspection Face/Nose/Sinus: Normal external nose present Face and sinus: normal facial exam Mouth: Yes Normal oral and palatal mucosa present Eyes: Conjunctivae: conjunctivae normal Pupils: Equal, round and reactive pupils present EOM: EOMs intact bilaterally Neck: Neck: normal visual inspection, no lymphadenopathy and no meningeal signs Chest: Chest palpation & inspection: normal inspection of the chest Resp: Effort & Inspection: normal respiratory effort Auscultation: clear to auscultation bilaterally Cardio: Rate: regular rate Rhythm: regular rhythm GI: GI Palp: Yes Soft to palpation Auscultation: normal bowel sounds Back/Spine/Pelvis: Back: no CVA tenderness Skin: General skin exam: normal color Rashes: no rashes Wounds: no wounds Neuro: General: patient oriented x3, moves all extremities, no meningeal signs and no focal motor deficits Extrem: General: normal to inspection and no clubbing, cyanosis or edema Psych: Mental Status: mental status grossly normal Affect: normal affect Course Course Emergency Course: Patient received Depo-Medrol, and DuoNebs and after reassessment she states that her symptoms have improved, x-ray was reviewed with no acute infiltrates, and blood work was normal. Vital Signs Vital signs: Vital Signs Temperature 36.0 C L 09/05/22 11:10 Oxygen Delivery Room Air 09/05/22 11:10 Temperature 36.0 C L 09/05/22 11:10 Pulse Rate 88 09/05/22 11:48 Respiratory Rate 18 09/05/22 11:48 Blood Pressure 153/96 H 09/05/22 11:13 Pulse Oximetry 100 09/05/22 11:48 Oxygen Delivery Room Air 09/05/22 11:13 Oxygen Flow Rate 6 09/05/22 11:48 MDM - URI/Sore Throat Lab Data
[2022-09-05 12:20] VITALS: BP 120/80; PULSE 88; RESP 18; TEMP 36.7; O2SAT 98
== END 2022-09-05 12:20 | disposition home or self-care (01) ==
PROVIDERS: Emergency Provider Emergency Medicine; PCP Internal Medicine
DX: J40 Bronchitis, not specified as acute or chronic (principal)
CPT/HCPCS: 36415; 71046; 80053; 85025; 94640; 96374; 99284; J2930

== ENCOUNTER 2022-09-08 15:34 | Outpatient (CLI) | payer OTHER, SELFPAY ==
--- NOTE | ~2022-09-08 | XR_ITS ---
EXAMINATION: XR chest 2V DATE: 09/08/2022 15:56 INDICATION: Cough and shortness of breath TECHNIQUE: PA and lateral views of the chest are obtained. COMPARISON: 09/05/2022 FINDINGS: The lungs are free of acute opacities. No pleural effusion or pneumothorax. The cardiomedia stinal silhouette is normal. There is moderate thoracic spondylosis. IMPRESSION: 1. No acute cardiopulmonary abnormality. Reviewed, dictated and finalized at location F. OTHERAPIST
[2022-09-08 15:52] LABS: Basophils Absolute Auto 0.01 K/mm3 (0.00-0.10); Basophils Percent Auto 0.2 % (0.0-1.0); Eosinophils Absolute Auto 0.01 K/mm3 (0.02-0.50); Eosinophils Percent Auto 0.2 % (1.0-6.0); Immature Granulocyte Percent A 1.6 % (0.0-0.0); Mean Corpuscular HGB Conc 32.5 g/dL (32.0-36.0); Mean Corpuscular Hemoglobin 29.2 pg (27.0-31.0); Mean Corpuscular Volume 89.9 fL (78.0-102.0); Mean Platelet Volume 9.4 fl (9.2-11.8); Monocytes Absolute Auto 0.12 K/mm3 (0.10-0.90); Monocytes Percent Auto 1.9 % (2.0-11.0); Neutrophils Absolute Auto 4.4 K/mm3 (1.7-7.2); Neutrophils Percent Auto 69.1 % (50.0-70.0); Platelet Count Result 283 K/mm3 (150-420); Red Blood Count 4.45 M/mm3 (4.20-5.40); Red Cell Distribution Width 12.3 % (11.6-14.4); White Blood Count 6.3 K/mm3 (4.8-10.8)
[2022-09-08 16:05] LABS: D Dimer 0.19 mg/L (0.19-0.50)
[2022-09-08 16:16] LABS: Alanine Aminotransferase 26 U/L (14-59); Albumin Level 3.7 g/dL (3.4-5.0); Alkaline Phosphatase 78 U/L (46-116); Anion Gap 10 mmol/L (8-16); Aspartate Amino Transferase 16 U/L (15-37); Bilirubin,Total 0.2 mg/dL (0.00-1.00); Blood Urea Nitrogen 19 mg/dL (7-18); Calcium 8.2 mg/dL (8.5-10.1); Carbon Dioxide 26 mmol/L (21-32); Chloride 109 mmol/L (98-108); Estimated Glomerular Filt Rate 59; Glucose 122 mg/dL (70-99); Osmolality Calculated 303 mOsm/kg (285-295); Potassium 3.8 mmol/L (3.5-5.1); Sodium 145 mmol/L (136-145); Total Protein 6.7 g/dL (6.4-8.2)
== END 2022-09-08 15:35 | disposition home or self-care (01) ==
LOC: CHSLAB 15:36
PROVIDERS: PCP Internal Medicine; Visit Provider Internal Medicine
DX: R06.00 Dyspnea, unspecified (principal); R05.9 Cough, unspecified
CPT/HCPCS: 36415; 71046; 80053; 85025; 85380

== ENCOUNTER 2022-11-13 18:49 | Emergency (ER) | payer OTHER, SELFPAY ==
--- NOTE | ~2022-11-13 | XR_ITS ---
EXAMINATION: XR chest 1V portable Exam Date/Time: 11/13/2022 19:00 [employer] HISTORY: CHEST PAIN, SHORTNESS OF BREATH. Comparison: 09/08/2022. RESULT: Lines, tubes, and devices: None. Lungs and pleura: Clear. Cardiomediastinal silhouette: Stable. Other: No acute osseous or upper abdominal finding. IMPRESSION: No acute cardiopulmonary process. Reviewed, dictated and finalized at location K. [employer]
[2022-11-13 18:58] VITALS: BP 134/89; PULSE 75; RESP 20; TEMP 36.7; O2SAT 100; O2SAT 99
--- NOTE | 2022-11-13 18:58 | ECG_ITS ---
Measurements Intervals [place] Rate: 87 P: 42 NH: 161 QRS: 55 QRSD: 104 T: 53 QT: 380 QTc: 458 Interpretive Statements SINUS RHYTHM LOW QRS VOLTAGE IN PRECORDIAL LEADS BASELINE ARTIFACT- I, II, III, AVR, AVL, AVF, V1, V3 BORDERLINE ECG COMPARED TO ECG 02/04/2021 18:51:17 NO SIGNIFICANT CHANGES Electronically Signed On 11-14-2022 7:54:06 [employer] LINE by Aleksey Pelayo D.O.
[2022-11-13] MEDS: ASPIRIN 81 MG CHEWABLE TABLET 324 MG PO (19:06)
--- NOTE | 2022-11-13 19:29 | ED.CHESTPAIN ---
HPI - Chest Pain General Chief Complaint: Chest Pain Stated Complaint: hard time breathing Source: patient and family ( ) Mode of arrival: ambulatory Limitations: no limitations History of Present Illness HPI narrative: patient is a 56-year-old white female was at [facility] when she started having sudden lower chest upper abdomen pain radiating around to the back sharp 9/10 in severity associated with nausea and throwing up bland meal she had just eaten not too long before that. she said nothing seemed to make the pain worse or better. She had associated shortness of breath and nausea. She has no history of heart or lung disease or peptic ulcer or GI and diseases. She has history of cervical cancer in the distant past and is on a estrogen and progesterone patch. A history of venous thromboembolism. Previously well without any problems eating drinking stooling or voiding cough URI symptoms fever or other pains rashes or itching bleeding or bruising. All this lasted about 40 minutes now here in the emergency room she feels back to normal. She is not on any medications about a week ago she took some semaglutide injection to try to lose weight. Related Data Home Medications Medication Instructions Recorded Confirmed albuterol sulfate 90 mcg/actuation 2 puff inhalation Q4-6H PRN Cough 09/05/22 11/13/22 aerosol inhaler estradiol 0.045 mg-levonorgestrel 1 patch topical WEEKLY 09/05/22 11/13/22 0.015 mg/24hr weekly transderm patch (Climara Pro) Allergies Allergy/AdvReac Type Severity Reaction Status Date / Time No Known Allergies Allergy Verified 09/05/22 11:22 Review of Systems Constitutional: Constitutional: Reports no additional constitutional complaints Eyes: Eyes: Reports no additional eye complaints ENT: Reports system reviewed and no additional complaints, except as documented and Reports as per HPI Cardiovascular: Cardiovascular: Reports as per HPI and Reports no additional cardiovascular complaints Respiratory: Respiratory: Reports as per HPI and Reports no additional respiratory complaints Gastrointestinal: Gastrointestinal: Reports as per HPI and Reports no additional gastrointestinal complaints Genitourinary: Genitourinary: Reports no additional female genitourinary complaints Musculoskeletal: Musculoskeletal: Reports no additional musculoskeletal complaints and Reports back pain Integumentary/Breasts: Skin/Breast: Reports system reviewed and no additional complaints, except as docu Neurologic: Reports system reviewed and no additional complaints, except as documented Psychiatric: Psychiatric: Denies anxiety and Denies depression Comments: No history of panic attack. Hematologic/Lymphatic: Hematologic/Lymphatic: Reports no additional hematologic/lymphatic complaints and Reports as per HPI Comments: No bleeding or bruising PMFSH Past Medical History Medical History Depression with anxiety Dyslipidemia Heartburn Hiatal hernia History of cervical cancer 2011;s/p chemo/radiation Hyperlipidemia Osteopenia Pelvic pain pelvic pain Surgical History Surgical History History of carpal tunnel repair History of inguinal hernia repair History of sinus surgery Status post tonsillectomy Social History Social History Smoking status: Never smoker Alcohol intake: never Substance use: never Exam Narrative: patient has a white females slightly anxious head is normocephalic atraumatic eyes conjunctiva pink sclera nonicteric. Oropharynx is clear with moist mucous membranes. Neck is supple no lymphadenopathy. Lungs are clear. Chest wall is nontender. Back is nontender . Heart is regular rate and rhythm without murmurs gallops or rubs. abdomen is soft nontender no hepatosplenomegaly or mass
[2022-11-13 19:34] LABS: Basophils Absolute Auto 0.02 K/mm3 (0.00-0.10); Basophils Percent Auto 0.6 % (0.0-1.0); Eosinophils Absolute Auto 0.09 K/mm3 (0.02-0.50); Eosinophils Percent Auto 2.6 % (1.0-6.0); Hematocrit 38.7 % (35.0-49.0); Immature Granulocyte Absolute 0.01 K/mm3 (0.00-0.00); Immature Granulocyte Percent A 0.3 % (0.0-0.0); Lymphocytes Absolute Auto 1.59 K/mm3 (1.10-4.50); Lymphocytes Percent Auto 45.7 % (18.0-42.0); Mean Corpuscular HGB Conc 33.6 g/dL (32.0-36.0); Mean Corpuscular Hemoglobin 29.1 pg (27.0-31.0); Mean Corpuscular Volume 86.6 fL (78.0-102.0); Mean Platelet Volume 10.2 fl (9.2-11.8); Monocytes Absolute Auto 0.22 K/mm3 (0.10-0.90); Monocytes Percent Auto 6.3 % (2.0-11.0); Neutrophils Absolute Auto 1.6 K/mm3 (1.7-7.2); Neutrophils Percent Auto 44.5 % (50.0-70.0); Platelet Count Result 240 K/mm3 (150-420); Red Blood Count 4.47 M/mm3 (4.20-5.40); Red Cell Distribution Width 12.2 % (11.6-14.4); White Blood Count 3.5 K/mm3 (4.8-10.8)
[2022-11-13 19:47] LABS: D Dimer 0.19 mg/L (0.19-0.50); Partial Thromboplastin Time 22.9 SEC (23.90-30.70); Prothrombin Time 11.2 Seconds (9.50-12.10)
[2022-11-13 19:54] LABS: Alanine Aminotransferase 20 U/L (14-59); Albumin Level 3.6 g/dL (3.4-5.0); Alkaline Phosphatase 64 U/L (46-116); Anion Gap 8 mmol/L (8-16); Aspartate Amino Transferase 18 U/L (15-37); Bilirubin,Total 0.3 mg/dL (0.00-1.00); Blood Urea Nitrogen 13 mg/dL (7-18); Calcium 8.2 mg/dL (8.5-10.1); Carbon Dioxide 29 mmol/L (21-32); Chloride 105 mmol/L (98-108); Estimated CRCL calculation 50 ml/min; Estimated Glomerular Filt Rate 55; Glucose 111 mg/dL (70-99); Lipase 62 U/L (16-77); NT Pro B Type Natriuretic Pept 111 pg/mL (0-125); Osmolality Calculated 295 mOsm/kg (285-295); Potassium 3.3 mmol/L (3.5-5.1); Sodium 142 mmol/L (136-145); Total Protein 6.7 g/dL (6.4-8.2)
[2022-11-13] MEDS: ONDANSETRON INJ 4 MG/2 ML VIAL IV PUSH (19:57)
[2022-11-13] MEDS: POTASSIUM CHLORIDE 20 MEQ TABLET 40 MEQ PO (21:03)
[2022-11-13 21:29] LABS: Troponin I < 4.0 ng/L (0.00-60.4)
[2022-11-13 22:29] VITALS: BP 122/82; PULSE 69; RESP 20; TEMP 36.7; O2SAT 99
== END 2022-11-13 22:32 | disposition home or self-care (01) ==
PROVIDERS: Emergency Provider Emergency Medicine; PCP Internal Medicine
DX: R07.89 Other chest pain (principal); R10.9 Unspecified abdominal pain; E87.6 Hypokalemia; R06.02 Shortness of breath; E78.5 Hyperlipidemia, unspecified; Z85.41 Personal history of malignant neoplasm of cervix uteri
CPT/HCPCS: 36415; 71045; 80053; 83690; 83880; 84484; 85025; 85380; 85610; 85730; 93005; 96374; 99284; A9270; J2405

== ENCOUNTER 2022-11-21 10:50 | Outpatient (CLI) | payer OTHER, SELFPAY ==
--- NOTE | 2022-12-22 10:14 | WPDHOLTEREM ---
Holter/Event Monitor Holter/Event Monitor Date of procedure: 11/21/22 Holter/Event Procedure: Event Monitor Indications: Palpitations Conclusion: 1. 28 days event monitor between 11/21/22-12/20/22. There are 31 available transmissions for analysis. 2. Underlying rhythm is sinus rhythm. HR range 50-149 bpm; average 76 bpm. HR at 149 bpm was on 11/30/22 at 09:53. 3. There are occasional premature supraventricular complexes with total burden of <1%. No supraventricular tachycardia. 4. There are occasional premature ventricular complexes with total burden of <1%. No ventricular tachycardia. 5. No significant pauses greater than 2 seconds. 6. Patient reports 3 episodes of symptoms of skipped beat and symptom other than listed which demonstrate sinus rhythm, HR range 78-94 bpm, with 2 episodes with PAC's.
== END 2022-11-21 10:51 | disposition home or self-care (01) ==
LOC: CHSCARD 10:51
PROVIDERS: PCP Internal Medicine; Visit Provider Internal Medicine
DX: R00.2 Palpitations (principal)
CPT/HCPCS: 93270

== ENCOUNTER 2023-01-17 10:10 | Outpatient (CLI) | payer OTHER, SELFPAY ==
--- NOTE | ~2023-01-17 | DEXA_ITS ---
Bone Density Report Name: HANNAH CANNON Age: 57 Sex: Female Ethnicity: White Date of : 1965 Indication: osteopenia; prior fracture; cancer; postmenopausal Referring Provider: JASON GARLAND Study: Bone densitometry was performed. Exam Date: January 17, 2023 Accession number: [id number] Bone Density: Region BMD T-score Z-score Classification AP Spine(L1-L4) 0.780 -2.4 -1.2 Osteopenia Femoral Neck (Left) 0.628 -2.0 -0.8 Osteopenia Total Hip (Left) 0.811 -1.1 -0.3 Osteopenia Femoral Neck (Right) 0.608 -2.2 -1.0 Osteopenia Total Hip (Right) 0.735 -1.7 -0.9 Osteopenia Total Hip Mean 0.773 -1.4 -0.6 Osteopenia World Health Organization criteria for BMD impression classify patients as: Normal (T-score at or above -1.0), Osteopenia (T-score between -1.0 and -2.5), or Osteoporosis (T-score at or below -2.5). 10-year Fracture Risk(1): Major Osteoporotic Fracture 15% Hip Fracture 2.2% Reported Risk Factors: [place] (), Neck BMD=0.608, BMI=28.3, previous fracture (1) FRAX(R) Version 3.08. Fracture probability calculated for an untreated patient. Fracture probability may be lower if the patient has received treatment. Previous Exams: Region Exam Age BMD T-score BMD Change BMD Change Date g/cm2 vs Baseline vs Previous AP Spine (L1-L4) 01/17/2023 57 0.780 -2.4 -0.044 (-5.3%) -0.016 (-2.1%) 12/18/2019 53 0.797 -2.3 -0.027 (-3.3%) -0.014 (-1.7%) 11/30/2016 50 0.810 -2.2 -0.014 (-1.7%) -0.014 (-1.7%) 11/11/2014 48 0.824 -2.0 Total Hip(Left) 01/17/2023 57 0.811 -1.1 0.004 (0.4%) -0.047 (-5.5%) 12/18/2019 53 0.859 -0.7 0.051 (6.3%)* 0.029 (3.5%)* 11/30/2016 50 0.830 -0.9 0.022 (2.7%) 0.022 (2.7%) 11/11/2014 48 0.808 -1.1 Total Hip(Right) 01/17/2023 57 0.735 -1.7 -0.026 (-3.4%) -0.055 (-6.9%) 12/18/2019 53 0.790 -1.2 0.029 (3.8%)* 0.030 (3.9%)* 11/30/2016 50 0.760 -1.5 -0.001 (-0.1%) -0.001 (-0.1%) 11/11/2014 48 0.761 -1.5 *Denotes significance at 95% confidence level, LSC for AP Spine = 0.022 g/cm2, LSC for Total Hip = 0.027 g/cm2 Clinical Information Provided by Patient: Has had a low trauma fracture Has the following medical conditions: Cancer Patient maximum height was 62 Menopause Age: 46 Drinks caffeinated beverages Onset of menses at age 13 Number of children 4 Impression: The patient has low bone mass, based on the Total Spin
--- NOTE | ~2023-01-17 | MM_ITS ---
EXAMINATION: MM screening betzy BI w tea HISTORY: Screening TECHNIQUE: Craniocaudal and mediolateral oblique 3-D tomosynthesis images were obtained and synthetic 2-D images were generated. CAD analysis was submitted and interpreted. COMPARISON: Comparison to multiple prior studies sequentially, with oldest reviewed study dated 11/11. BREAST PARENCHYMAL COMPOSITION: There are scattered areas of fibroglandular density. FINDINGS: There is no evidence of suspicious mass, calcification, or architectural distortion to sugg est malignancy in either breast. There has been no suspicious interval change. IMPRESSION: 1. No mammographic evidence of malignancy. 2. Recommend routine screening mammography in one year. BI-RADS Category 1: Negative Reviewed, dictated and finalized at location A.
== END 2023-01-17 10:11 | disposition home or self-care (01) ==
PROVIDERS: PCP Internal Medicine; Visit Provider Internal Medicine
DX: Z12.31 Encounter for screening mammogram for malignant neoplasm of breast (principal); Z13.820 Encounter for screening for osteoporosis; M85.88 Other specified disorders of bone density and structure, other site; M85.852 Other specified disorders of bone density and structure, left thigh; M85.851 Other specified disorders of bone density and structure, right thigh
CPT/HCPCS: 77063; 77067; 77080

== ENCOUNTER 2023-06-02 12:56 | Emergency (ER) | payer OTHER, SELFPAY ==
[2023-06-02] VITALS (20 sets, daily range): BP systolic 114–141; BP diastolic 66–89; PULSE 65–87; RESP 16–20; TEMP 36.8; O2SAT 97–100
--- NOTE | ~2023-06-02 | CT_ITS ---
EXAMINATION: CT abdomen pelvis wo con DATE: 06/02/2023 14:33 INDICATION: Diarrhea. Abdominal cramping. Nausea. TECHNIQUE: Computed tomography (CT) of the abdomen and pelvis was performed without intravenous contr ast. Automated exposure control and iterative reconstruction technique were employed. The dose-length product was 517.06 mGy-cm. COMPARISON: CT abdomen and pelvis 04/21/2021 FINDINGS: The visualized portions of the lung bases demonstrate minimal atelectasis. No pleural effus ion. The heart size is normal. No pericardial effusion. There is a small sliding hiatal hernia. The l iver, gallbladder, and pancreas are normal. Calcifications in the spleen are consistent with old gran ulomatous disease. The adrenal glands and right kidney are normal. There is a 5 mm cyst in left kidne y. There is liquid stool in the colon correlating with the symptom of diarrhea. There are no dilated loops of bowel. The appendix is not visualized. There are no pathologically enlarged lymph nodes. The re is trace pelvic ascites. There is a brachytherapy seed in the cervix. There is mild thoracolumbar spondylosis. IMPRESSION: 1. Small sliding hiatal hernia. Reviewed, dictated and finalized at location A.
[2023-06-02 13:54] LABS: Appearance Urine Clear (Clear); Bilirubin Urine Negative (Negative); Blood Urine Negative (Negative); Color Urine Light Yellow (Yellow); Glucose Urine UA Negative (Negative); Ketones Urine Negative (Negative); Leukocyte Esterase Ur Negative LEU/UL (Negative); Nitrate Urine Negative (Negative); Protein Urine Negative (Negative); Specific Grav Ur 1.015 (1.010-1.020); Urobilinogen Urine 0.2 mg/dL (0.2-1.0)
--- NOTE | 2023-06-02 13:54 | ED.GENADULT ---
HPI - General Adult General Chief complaint: Nausea/Vomiting/Diarrhea Stated complaint: Nausea and diarrhea Time Seen by Provider: 06/02/23 13:43 Source: patient Mode of arrival: ambulatory Limitations: no limitations History of Present Illness HPI narrative: Patient is a 57-year-old white female complains of 3 days lower crampy abdominal pain associated with nausea and diarrhea without vomiting headache and dizziness brought by EMS. Monday had yellow diarrhea and nausea felt a little lightheaded little warm having headaches and crampiness Monday a temperature of a 101.2? resolved in the morning was better today complains of cramping feeling weak and dizzy and lightheaded felt chilled. She has gone to the bathroom 10 times for diarrheal stool stool denies any blood or bleeding or bruising coughing. She was little short of breath when she was dizzy. She has had decreased solid intake. She is not drinking as much she had toast this morning denies any vomiting. Denies any rash or itching lumps or bumps or swelling numbness problems voiding. She just complains of generalized weakness. She said she took phentermine and lost 10 lb for the last 2 months just finished this 8 days ago. Social history she works at [employer] her was recently in the hospital and she went around to the waiting rooms with him the last week or 2. Past surgical history carpal tunnel bilaterally tn a right inguinal hernia repair Related Data Home Medications Medication Instructions Recorded Confirmed albuterol sulfate 90 mcg/actuation 2 puff inhalation Q4-6H PRN Cough 09/05/22 11/13/22 aerosol inhaler estradiol 0.045 mg-levonorgestrel 1 patch topical WEEKLY 09/05/22 11/13/22 0.015 mg/24hr weekly transderm patch (Climara Pro) Allergies Allergy/AdvReac Type Severity Reaction Status Date / Time No Known Allergies Allergy Verified 09/05/22 11:22 Review of Systems Review of Systems: All systems reviewed & are unremarkable except as noted in HPI and below PMFSH Past Medical History Medical History Depression with anxiety Dyslipidemia Heartburn Hiatal hernia History of cervical cancer 2011;s/p chemo/radiation Hyperlipidemia Osteopenia Pelvic pain pelvic pain Surgical History Surgical History History of carpal tunnel repair History of inguinal hernia repair History of sinus surgery Status post tonsillectomy Social History Social History Smoking status: Never smoker Alcohol intake: never Substance use: never Exam Narrative: White female patient no apparent distress.? Head normocephalic, atraumatic.? Eyes conjunctiva pink sclera nonicteric.? Extraocular movements are intact.? Ears externally normal.? Oropharynx is clear with moist mucous membranes without exudates.? Neck is supple nontender no lymphadenopathy.? Back is nontender.? Lungs are clear.? Heart is regular rate and rhythm without murmurs gallops or rubs.? Chest wall is nontender.? Abdomen is soft and nontender no hepatosplenomegaly or masses no CVA tenderness no abdominal bruits.? Extremities no cyanosis clubbing or edema.? Skin is warm and dry without rashes or lesions.? Neurological patient is alert and oriented x4.? Motor and sensory grossly intact.? Gait is normal. Course Vital Signs Vital signs: Vital Signs Temperature 36.8 C 06/02/23 12:56 Pulse Rate 65 06/02/23 12:56 Respiratory Rate 20 06/02/23 12:56 Blood Pressure 141/89 H 06/02/23 12:56 Pulse Oximetry 98 06/02/23 12:56 Oxygen Delivery Room Air 06/02/23 12:56 Temperature 36.8 C 06/02/23 12:56 Pulse Rate 85 06/02/23 15:02 Respiratory Rate 20 06/02/23 12:56 Blood Pressure 116/82 06/02/23 15:02 Pulse Oximetry 98 06/02/23 12:56 Oxygen Delivery Room Air 06/02/23 12:56
[2023-06-02 14:03] LABS: Add Urine Microscopic? NO
[2023-06-02] MEDS: SODIUM CHLORIDE 0.9% IV 1,000 ML 999 ML IV CONT (14:04)
[2023-06-02] MEDS: ONDANSETRON INJ 4 MG/2 ML VIAL IV PUSH (14:05)
[2023-06-02 14:25] LABS: Hematocrit 37.2 % (35.0-49.0); Hemoglobin 12.4 g/dL (12.0-15.0); Influenza A QL RT-PCR Negative (Negative); Influenza B QL RT-PCR Negative (Negative); Mean Corpuscular HGB Conc 33.3 g/dL (32.0-36.0); Mean Corpuscular Volume 89.9 fL (78.0-102.0); Mean Platelet Volume 9.5 fl (9.2-11.8); Platelet Count Result 187 K/mm3 (150-420); RSV RNA, RT-PCR Negative (Negative); Red Blood Count 4.14 M/mm3 (4.20-5.40); Red Cell Distribution Width 11.9 % (11.6-14.4); SARS-CoV-2 RNA PCR Negative (Negative); White Blood Count 4.7 K/mm3 (4.8-10.8)
[2023-06-02 14:46] LABS: Lactic Acid Reflex 0.8 mmol/L (0.4-2.0)
[2023-06-02 14:52] LABS: Alanine Aminotransferase 17 U/L (14-59); Albumin Level 3.2 g/dL (3.4-5.0); Alkaline Phosphatase 67 U/L (46-116); Anion Gap 9 mmol/L (8-16); Aspartate Amino Transferase 17 U/L (15-37); Bilirubin,Total 0.2 mg/dL (0.00-1.00); Blood Urea Nitrogen 13 mg/dL (7-18); Calcium 8.2 mg/dL (8.5-10.1); Carbon Dioxide 27 mmol/L (21-32); Chloride 109 mmol/L (98-108); Estimated CRCL calculation 55 ml/min; Estimated Glomerular Filt Rate > 60; Glucose 90 mg/dL (70-99); Lipase 53 U/L (16-77); Magnesium 1.5 mg/dL (1.8-2.4); Osmolality Calculated 300 mOsm/kg (285-295); Potassium 3.4 mmol/L (3.5-5.1); Sodium 145 mmol/L (136-145); Total Protein 6.4 g/dL (6.4-8.2)
--- NOTE | 2023-06-08 13:55 | PC.NURSE ---
reviewed blood culture, no growth noted
== END 2023-06-02 16:20 | disposition home or self-care (01) ==
PROVIDERS: Emergency Provider Emergency Medicine; PCP Internal Medicine
DX: K52.9 Noninfective gastroenteritis and colitis, unspecified (principal); E87.6 Hypokalemia; E83.42 Hypomagnesemia; E78.5 Hyperlipidemia, unspecified; Z20.822 Contact with and (suspected) exposure to COVID-19
CPT/HCPCS: 36415; 74176; 80053; 81003; 83605; 83690; 83735; 85027; 87040; 87635; 87637; 96361; 96374; 99284; J2405; J7030

== ENCOUNTER → 2023-10-19 07:44 | Outpatient (CLI) | payer OTHER, SELFPAY ==
--- NOTE | ~2023-10-19 | MR_ITS ---
EXAMINATION: MR knee RT wo con DATE: 10/19/2023 08:19 INDICATION: Right knee pain TECHNIQUE: Magnetic resonance imaging (MRI) of the right knee was performed without intravenous contr ast. Sequences included coronal PD-weighted FSE, coronal PD-weighted FS FSE, sagittal T2-weighted FS E, sagittal PD-weighted FS FSE and axial PD weighted fat saturated FSE. COMPARISON: None. FINDINGS: Medial compartment: Medial meniscus is normal. The deep chondral fissuring without degenerative subchondral changes at th e central aspect of the medial tibial plateau and at the junction of the anterior and central weightb earing medial femoral condyle. Lateral compartment: Increased signal involving the inner third of the body of the medial meniscus seen on only a single c oronal image, series 4 & 5, image 14 consistent with a small radial tear. Additional deep chondral fi ssuring without degenerative subchondral changes at the central lateral tibial plateau and anterior w eightbearing lateral femoral condyle. Additional small deep chondral ulceration with small central barron bchondral osteophyte at the posterior weightbearing lateral femoral condyle. Patellofemoral compartment: Partial-thickness chondral ulceration and deep fissuring along the trochlear groove and medial trochl ea bladder with tiny central subchondral osteophytes and tiny focus of subarticular edema-like signal change. Deep chondral ulceration and fissuring at the medial patellar facet and shallow ulceration w ith deep fissuring at the apical ridge and medial side of the lateral facet, each without degenerativ e subchondral changes. Ligaments and tendons: Anterior and posterior cruciate ligaments are normal. The medial collateral ligament and fibular ryne ateral ligament complex are normal. The extensor mechanism is normal. The visualized medial and later al hamstring tendons as well as the iliotibial band are normal. Fluid: Physiologic amount of fluid in the joint space. No loose osteochondral bodies identified. Osseous/other: Normal marrow signal. No fracture or pathologic marrow replacing process. Nonspecific mild edema in t he musculature of the proximal anterior and deep posterior compartments on either side of the tibiofi bular syndesmosis. IMPRESSION: 1. Small radial tear involving the third of the body of the lateral meniscus. 2. 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 3. Nonspecific mild edema in the musculature of the proximal anterior and deep posterior compartments on either side of the proximal tibiofibular syndesmosis is of indeterminate etiology or significance . Reviewed, dictated and finalized at location A. [employer] IMPRESSION: 1. Small radial tear involving the third of the body of the lateral meniscus. 2. Mild tricompartmental osteoarthritis with moderate and high-grade chondromal acia in the patellofemoral and lateral compartments and moderate grade chondrom alacia in the medial compartment. 3. Nonspecific mild edema in the musculature of the proximal anterior and deep posterior compartments on either side of the proximal tibiofibular syndesmosis is of indeterminate etiology or significance.
== END ==
PROVIDERS: PCP Internal Medicine; Visit Provider Internal Medicine
DX: M25.561 Pain in right knee (principal); S83.281A Other tear of lateral meniscus, current injury, right knee, initial encounter; X58.XXXA Exposure to other specified factors, initial encounter; M17.11 Unilateral primary osteoarthritis, right knee
CPT/HCPCS: 73721

== ENCOUNTER 2023-10-26 00:06 | Emergency (ER) | payer OTHER, SELFPAY ==
--- NOTE | ~2023-10-26 | CT_ITS ---
Clinical Indication: Epigastric pain CT Scan of the Chest, Abdomen, and Pelvis with Contrast: Technique: Contiguous sections were acquired throughout the chest, abdomen, and pelvis after intraven ous administration of 100 cc of Omnipaque 350. Dose reduction technique was used on this scan by olya waiteing automated exposure control and iterative reconstruction technique. The dose-length product (DL P) was 698.14 mGy-cm. COMPARISON: 06/02/2023 Findings: Suspected enlarged subcarinal lymph node measuring 2 cm in diameter. No lymphadenopathy evident. The mediastinal soft tissues otherwise appear normal. No pulmonary embolus. No aortic aneurysm or dissect ion. There is no evidence of pleural or pericardial effusion. The lungs are clear. No pulmonary nodules or infiltrates are noted. There is periportal edema in the liver, which is otherwise unremarkable. Suspected small gallstones a nd possible minimal gallbladder wall thickening. The spleen, pancreas, adrenals and kidneys are withi n normal limits. No evidence of aortic aneurysm. No lymphadenopathy. No bowel obstruction or bowel wall thickening. There is no evidence to suggest acute appendicitis. Urinary bladder is unremarkable. No adnexal mass evident. No ascites. Small metallic foreign body or surgical clips present in the pelvis, unchanged. Impression: Suspected single enlarged subcarinal lymph node, of uncertain significance/etiology. Consider follow- up exam or PET/CT to further evaluate. Suspected small gallstones and possible minimal gallbladder wall thickening. Consider acute cholecyst itis. Consider gallbladder ultrasound to further evaluate. Nonspecific periportal edema in the liver. Reviewed, dictated and finalized at [facility]. [employer] Impression: Suspected single enlarged subcarinal lymph node, of uncertain significance/etio logy. Consider follow-up exam or PET/CT to further evaluate. Suspected small gallstones and possible minimal gallbladder wall thickening. Co nsider acute cholecystitis. Consider gallbladder ultrasound to further evaluate . Nonspecific periportal edema in the liver.
[2023-10-26 00:11] VITALS: BP 157/88; PULSE 78; RESP 20; TEMP 36.1; O2SAT 100
--- NOTE | 2023-10-26 00:13 | ED.ABDPAIN ---
HPI - Abdominal Pain General Chief Complaint: Abdominal Pain Stated Complaint: epigastric pain Time Seen by Provider: 10/26/23 00:13 Source: patient Mode of arrival: ambulatory Limitations: no limitations History of Present Illness HPI narrative: 57-year-old female with a history of anxiety / depression, dyslipidemia, hiatal hernia/GERD, cervical cancer status post chemo/ RT, COVID in October of 2019 to present to the ER with a 30 minute history of -- acute onset epigastric pain which radiates circumferentially involving the lower chest wall and radiating to the back. Pain initially was severe but has decreased after coming to the ER. Pain is continuous. Patient had nausea with vomiting. No diarrhea. No fever. Patient had prior history of multiple episodes of abdominal pain patient has had a history of colonoscopy and EGD in the past. MD elicited complaint: abdominal pain Pertinent past history: other ( Hiatal hernia/GERD) Onset (ago): minute(s) ( 30 minutes) Pain Consistency: constant Location: chest and epigastric Severity: severe Quality: aching Radiation: other ( pain extends laterally and goes to the back at the level of the epigastric) Exacerbating factors: nothing Relieving factors: nothing Associated symptoms: nausea and vomiting Related Data Allergies Allergy/AdvReac Type Severity Reaction Status Date / Time No Known Allergies Allergy Verified 09/05/22 11:22 Review of Systems Review of Systems: All systems reviewed & are unremarkable except as noted in HPI and below Constitutional: Constitutional: Reports as per HPI and Reports no additional constitutional complaints Eyes: Eyes: Reports as per HPI and Reports no additional eye complaints ENT: Reports system reviewed and no additional complaints, except as documented and Reports as per HPI Cardiovascular: Cardiovascular: Reports as per HPI and Reports no additional cardiovascular complaints Respiratory: Respiratory: Reports as per HPI and Reports no additional respiratory complaints Gastrointestinal: Gastrointestinal: Reports as per HPI, Reports no additional gastrointestinal complaints, Reports abdominal pain, Reports nausea and Reports vomiting Genitourinary: Genitourinary: Reports no additional female genitourinary complaints Musculoskeletal: Musculoskeletal: Reports no additional musculoskeletal complaints Integumentary/Breasts: Skin/Breast: Reports system reviewed and no additional complaints, except as docu and Reports as per HPI Neurologic: Reports system reviewed and no additional complaints, except as documented and Reports as per HPI Psychiatric: Psychiatric: Reports no additional psychiatric complaints and Reports as per HPI Endocrine: Endocrine: Reports no additional endocrine complaints and Reports as per HPI Hematologic/Lymphatic: Hematologic/Lymphatic: Reports no additional hematologic/lymphatic complaints and Reports as per HPI Allergic/Immunologic: Allergic/Immunologic: Reports no additional allergic/immunologic complaints and Reports as per HPI PMFSH Past Medical History Medical History Depression with anxiety Dyslipidemia Heartburn Hiatal hernia History of cervical cancer 2011;s/p chemo/radiation Hyperlipidemia Osteopenia Pelvic pain pelvic pain Surgical History Surgical History History of carpal tunnel repair History of inguinal hernia repair History of sinus surgery Status post tonsillectomy Social History Social History Smoking status: Never smoker Alcohol intake: never Substance use: never Exam Const: General: ill appearing Nutritional Appearance: well nourished Orientation/consciousness: patient oriented x3 Limitations: no limitations HENMT: Head: normal to inspection Ears: external ears normal Face/Nose/Sinus: Normal exte
--- NOTE | 2023-10-26 00:19 | ECG_ITS ---
Measurements Intervals [place] Rate: 49 P: 55 CT: 163 QRS: 65 QRSD: 89 T: 49 QT: 448 QTc: 408 Interpretive Statements SINUS BRADYCARDIA BASELINE ARTIFACT- I, II, AVR, AVL, V5-V6 ABNORMAL ECG COMPARED TO ECG 11/13/2022 19:04:55 SINUS BRADYCARDIA NOW PRESENT Electronically Signed On 10-26-2023 6:58:46 ELECTROENCEPHALOGRAPH TECHNOLOGIST by Aleksey Pelayo D.O.
[2023-10-26] MEDS: HYDROmorphone HCL INJ (*CRX) 2 MG/ML VIAL 0.5 MG IV PUSH (00:25)
[2023-10-26] MEDS: PROCHLORPERAZINE EDISYLATE 10 MG/2 ML VIAL IV PUSH (00:25)
[2023-10-26] MEDS: LACTATED RINGERS 1,000 ML 999 ML IV CONT (00:27)
[2023-10-26 00:43] LABS: Basophils Absolute Auto 0.02 K/mm3 (0.00-0.10); Basophils Percent Auto 0.4 % (0.0-1.0); Eosinophils Absolute Auto 0.13 K/mm3 (0.02-0.50); Eosinophils Percent Auto 2.5 % (1.0-6.0); Hematocrit 40.8 % (35.0-49.0); Hemoglobin 13.3 g/dL (12.0-15.0); Immature Granulocyte Absolute 0.02 K/mm3 (0.00-0.00); Immature Granulocyte Percent A 0.4 % (0.0-0.0); Lymphocytes Absolute Auto 1.99 K/mm3 (1.10-4.50); Lymphocytes Percent Auto 38.9 % (18.0-42.0); Mean Corpuscular HGB Conc 32.6 g/dL (32.0-36.0); Mean Corpuscular Hemoglobin 29.2 pg (27.0-31.0); Mean Corpuscular Volume 89.7 fL (78.0-102.0); Mean Platelet Volume 9.5 fl (9.2-11.8); Monocytes Absolute Auto 0.43 K/mm3 (0.10-0.90); Monocytes Percent Auto 8.4 % (2.0-11.0); Neutrophils Absolute Auto 2.5 K/mm3 (1.7-7.2); Neutrophils Percent Auto 49.4 % (50.0-70.0); Platelet Count Result 244 K/mm3 (150-420); Red Blood Count 4.55 M/mm3 (4.20-5.40); Red Cell Distribution Width 12.5 % (11.6-14.4); White Blood Count 5.1 K/mm3 (4.8-10.8)
[2023-10-26 00:52] LABS: INR 0.9; Partial Thromboplastin Time 23.2 SEC (23.90-30.70); Prothrombin Time 10.3 Seconds (9.50-12.10)
[2023-10-26 00:57] LABS: Alanine Aminotransferase 47 U/L (14-59); Albumin Level 3.5 g/dL (3.4-5.0); Alkaline Phosphatase 66 U/L (46-116); Anion Gap 10 mmol/L (8-16); Aspartate Amino Transferase 59 U/L (15-37); Bilirubin,Total 0.2 mg/dL (0.00-1.00); Blood Urea Nitrogen 15 mg/dL (7-18); Calcium 8.6 mg/dL (8.5-10.1); Carbon Dioxide 28 mmol/L (21-32); Chloride 105 mmol/L (98-108); Estimated CRCL calculation 54 ml/min; Estimated Glomerular Filt Rate > 60; Glucose 101 mg/dL (70-99); Osmolality Calculated 296 mOsm/kg (285-295); Potassium 3.5 mmol/L (3.5-5.1); Sodium 143 mmol/L (136-145); Total Protein 6.5 g/dL (6.4-8.2); Troponin I 5.2 ng/L (0.00-60.4)
[2023-10-26 00:59] LABS: Lactic Acid Reflex 1.8 mmol/L (0.4-2.0)
[2023-10-26 01:06] LABS: Lipase 445 U/L (16-77)
[2023-10-26 01:45] VITALS: BP 136/80; PULSE 75; RESP 20; O2SAT 98
[2023-10-26 01:48] LABS: Appearance Urine Clear (Clear); Bilirubin Urine Negative (Negative); Blood Urine Negative (Negative); Color Urine Light Yellow (Yellow); Glucose Urine UA Negative (Negative); Ketones Urine Negative (Negative); Leukocyte Esterase Ur Trace LEU/UL (Negative); Nitrate Urine Negative (Negative); Protein Urine Negative (Negative); Specific Grav Ur 1.015 (1.010-1.020); pH Urine 7.5 (5.0-8.0)
[2023-10-26 01:52] LABS: Add Urine Microscopic? YES; RBC Urine 0-2 /hpf (0-2); Squamous Epithelial Cell Urine Rare /hpf (Few); WBC Urine 0-3 /hpf (0-3)
[2023-10-26] MEDS: ONDANSETRON INJ 4 MG/2 ML VIAL IV PUSH (01:52)
[2023-10-26 01:53] LABS: Amorphous Sediment Urine Few; Bacteria Urine 1+ /hpf
[2023-10-26] MEDS: PANTOPRAZOLE SODIUM IV 40 MG VIAL IV PUSH (01:53)
[2023-10-26] MEDS: LACTATED RINGERS 1,000 ML 250 ML IV CONT (01:56)
--- NOTE | 2023-10-26 02:00 | PC.NURSE ---
Pt resting, lights dimmed, VSS, IVF infusing as per order. Awaiting CT results. Pt states pain is much better.
[2023-10-26 02:47] VITALS: BP 140/72; PULSE 84; RESP 18; TEMP 36.7; O2SAT 98
== END 2023-10-26 02:56 | disposition home or self-care (01) ==
PROVIDERS: Emergency Provider Internal Medicine Critical Care Medicine; PCP Internal Medicine
DX: K85.80 Other acute pancreatitis without necrosis or infection (principal); E78.5 Hyperlipidemia, unspecified; Z85.41 Personal history of malignant neoplasm of cervix uteri
CPT/HCPCS: 36415; 71275; 74174; 80053; 81001; 83605; 83690; 84484; 85025; 85610; 85730; 93005; 96361; 96374; 96375; 99284; C9113; J0780; J1170; J2405; J7120; Q9967

== ENCOUNTER 2023-10-27 07:44 | Outpatient (CLI) | payer OTHER, SELFPAY ==
--- NOTE | ~2023-10-27 | US_ITS ---
Limited Abdominal Sonogram: Real-time sonographic imaging of the right upper quadrant was performed. Clinical History: Right upper quadrant pain Findings: The liver appears normal with no evidence of mass lesion or bile duct dilatation. Main por andrew vein demonstrates normal direction of flow. The gallbladder is well distended, and contains small gallstones versus gallbladder wall polyp. No gallbladder wall thickening. The common bile duct measu res 6 mm. The visualized pancreas, aorta, and IVC are unremarkable. Impression: Small gallstones versus gallbladder wall polyps. Reviewed, dictated and finalized at location M. [facility] Impression: Small gallstones versus gallbladder wall polyps.
== END 2023-10-27 07:45 | disposition home or self-care (01) ==
LOC: CHSIMG 07:45
PROVIDERS: PCP Internal Medicine; Visit Provider Internal Medicine
DX: R10.11 Right upper quadrant pain (principal); R93.3 Abnormal findings on diagnostic imaging of other parts of digestive tract
CPT/HCPCS: 76705

== ENCOUNTER 2023-11-14 08:52 | Outpatient (CLI) | payer OTHER, SELFPAY ==
[2023-11-14 09:36] LABS: Alanine Aminotransferase 33 U/L (6-35); Albumin Level 3.8 g/dL (3.5-5.1); Alkaline Phosphatase 69 U/L (38-126); Amylase 84 U/L (30-110); Aspartate Amino Transferase 32 U/L (14-36); Bilirubin,Total 0.4 mg/dL (0.2-1.3); Lipase 81 U/L (23-300)
== END 2023-11-14 08:53 | disposition home or self-care (01) ==
LOC: ANHSURGERY 08:54
PROVIDERS: PCP Internal Medicine; Visit Provider Surgery
DX: Z01.818 Encounter for other preprocedural examination (principal); K85.10 Biliary acute pancreatitis without necrosis or infection
CPT/HCPCS: 36415; 80076; 82150; 83690

== ENCOUNTER 2023-11-15 01:20 | Day surgery (SDC) | payer OTHER, SELFPAY ==
[2023-11-07 12:46] VITALS: BMI 29.6
--- NOTE | 2023-11-07 12:55 | PC.NURSE ---
Report to the Outpatient Waiting Room, entrance under the green pavilion located off [facility], at time 6:30 on date 11/15/23. Planned Procedure Time: 8:30. Time changes happen often and if your time is changed the preop area will call you the afternoon before. - You and your visitor will be asked to self-screen and do not enter if you have any COVID symptoms. - A mask is optional within the hospital at this time. Patients may have clear liquids (water, carbonated beverages, clear teas, apple juice) until 3 hours prior to surgery (5:30) with a maximum of 20 ounces. - No food from midnight until time of surgery Take the following medications with a SIP of water the morning of surgery: NONE DO NOT STOP ANY OF YOUR OTHER PRESCRIPTION MEDICATIONS PRIOR TO SURGERY ?EXCEPT THE FOLLOWING Medications to discontinue per physician: N/A Date to take last dose: N/A Please no make-up, nail equatorial guinean, hairspray, perfume, deodorant, or body powder the day of surgery. No jewelry (including any body piercings) or valuables the day of surgery, leave them at home. Please take a shower or bath the night before, or the morning of, surgery with an antibacterial soap. Wear comfortable, loose fitting clothing. - Jewelry must be removed prior to entering the operating room. Rings and piercings that are not removed may be cut off. - The hospital will not accept responsibility for valuables. - Please leave all valuables, including medications, at home the day of surgery. If you are going home after surgery, a licensed petroleum transport driver must drive you home. - NO public transportation without another adult if you receive anesthesia. - We recommend that an adult stay with you for 24 hours following discharge. - We also recommend that you do not drive, make important decision, drink alcoholic beverages, or take any drugs that were not prescribed by your health care provider for at least 24 hours after your discharge time. Follow any additional instructions given to you from your surgeon. If you or anyone in your household have experienced Covid symptoms in the past week, please notify your surgeon or the nurse liaison at the phone number below for possible testing. Telephone instructions given to PT - HANNAH CANNON and asked if any additional questions and then verbalized understanding. Patient advised to call surgeon office or pre surgery nurse liaison [phone] if any additional questions.
--- NOTE | 2023-11-14 09:41 | WPDANESEPPF ---
Anes - Initial Pre Proc Eval Procedure: Operation Date: 11/15/23 07:30 Proposed Procedures p Laparoscopic Cholecystectomy with Intraoperative Cholangiogram - Gibran Gallagher MD Date/Time: 11/14/23 09:41 Surgeon: Gibran Gallagher MD Pre Op Diagnosis: biliary pancreatitis Patient Data Age: 57 Gender: F Height: 1.57 m Weight: 73.5 kg Allergies Allergy/AdvReac Type Severity Reaction Status Date / Time Lmuyrdu-LNF-EvN Reductase Allergy Muscle Pain Verified 11/15/23 06:35 Inhibitor Home Medications Medication Instructions Recorded Confirmed Type pantoprazole 40 mg granules 40 mg PO DAILY #30 ea 10/26/23 11/15/23 Rx delayed-release for susp in packet (Protonix) Patient hx anesthesia problems: post op nausea/vomiting Family hx anesthesia problems: none Results Review: All pre-operative results and documents have been reviewed as part of the pre-operative evaluation. [facility] Past Medical History Medical History (Updated 11/14/23 @ 09:42 by Devaughn Ortega DO) Depression with anxiety Dyslipidemia Heartburn Hiatal hernia History of cervical cancer 2011;s/p chemo/radiation Hyperlipidemia Osteopenia Pelvic pain pelvic pain PONV (postoperative nausea and vomiting) Surgical History Surgical History History of carpal tunnel repair History of inguinal hernia repair History of sinus surgery Status post tonsillectomy Family History Family History Other Cerebrovascular accident Heart disease Hypertension Social History Social History Smoking status: Never smoker Alcohol intake: never Alcohol use details: rare Substance use: never Substance use type: does not use Living arrangements: with family Occupation/Education: occupation Additional occupation/education comments: [employer] Spiritual care concerns: No Anes - Eval Final PreProcedure Day of Procedure 11/14/23 09:41 Patient weight: overweight Heart: regular rate and rhythm Lungs: clear to auscultation Airway: Mallampati scale class III Neurological: alert and oriented Last oral intake: >/= 8 hours ASA classification: II Emergent: no Anesthetic plan: proceed Anesthesia type and monitoring: general ETT and standard monitoring Results Review: All pre-operative results and documents have been reviewed as part of the pre-operative evaluation. Informed Consent: The patient's anesthetic plan and its attendant risks and benefits were discussed with the patient/family/POA. Questions were solicited and answers provided to the satisfaction of the patient/family/POA.
[2023-11-15] VITALS (11 sets, daily range): BP systolic 99–145; BP diastolic 50–95; PULSE 67–93; RESP 10–16; TEMP 36.2–36.7; O2SAT 94–100
--- NOTE | ~2023-11-15 | XR_ITS ---
EXAMINATION: XR cholangiogram surg 1st inj DATE: 11/15/2023 08:26 INDICATION: Laparoscopic cholecystectomy TECHNIQUE: 110 fluoroscopic images of the right upper quadrant were obtained during intraoperative ch olangiography performed by the surgeon. I was not present in the operating room. Fluoroscopy exposure time was 18.2 seconds. COMPARISON: None. FINDINGS: Fluoroscopic images demonstrate a normal caliber common bile duct without evidence of stric ture or stone. IMPRESSION: 1. No common bile duct stones or stricture identified. Finding was communicated to Dr. Gallagher in the op erating room during surgery. Reviewed, dictated and finalized at location A. NISTRATIVE JUDGE IMPRESSION: 1. No common bile duct stones or stricture identified. Finding was communicated to Dr. Gallagher in the operating room during surgery.
[2023-11-15] MEDS: LACTATED RINGERS 1,000 ML 30 ML IV CONT ×2 (06:28→08:54)
[2023-11-15] MEDS: KETOROLAC 15 MG/ML VIAL (*BKC) IV PUSH ×2 (06:29→08:30)
[2023-11-15] MEDS: ACETAMINOPHEN 500 MG TABLET 1000 MG PO (06:29)
[2023-11-15] MEDS: SCOPOLAMINE 1 MG PATCH 1 PATCH TRANSDERM (07:32)
--- NOTE | 2023-11-15 07:33 | WPDHPUPDATE1 ---
History and Physical Update Update Date/Time: 11/15/23 07:33 History and Physical has been reviewed, including an updated exam of the patient. There are NO changes in the patient's condition. Risks, benefits, and alternatives have been discussed and questions answered. Patient agrees to proceed with procedure.
[2023-11-15] MEDS: ceFAZolin 2 GM/D5W 50 ML 2 GM/50 ML BAG IVPB (07:37)
[2023-11-15] MEDS: LIDO 1%/EPINEPHRINE 1:100,000 50 ML VIAL 30 ML INFILTRATE (08:02)
[2023-11-15] MEDS: BUPivacaine HCL 0.5% PF 30 ML VIAL INFILTRATE (08:02)
--- NOTE | 2023-11-15 08:51 | W.PM.PROC2 ---
Procedure Note - Detailed Date of Procedure 11/15/23 Pre-op Diagnosis Biliary colic secondary to cholelithiasis, chronic cholecystitis, biliary pancreatitis. Post-op Diagnosis Same Procedure Performed Laparoscopic cholecystectomy with intraoperative cholangiogram. Surgeon Gibran Gallagher MD Fuse Cutter Nenita Lopez FERRY HAND Anesthesia General Indications Patient is a 57-year-old female who had episode of severe epigastric abdominal pain. History of elevated liver enzymes and likely passed a common bile duct stone. Imaging showed a retained common duct stone. She did have residual cholelithiasis. She presents now for laparoscopic cholecystectomy with intraoperative cholangiogram. Findings There is some mild chronic inflammation the gallbladder wall with some adhesions of the omentum to the gallbladder. The common bile duct was visualized and grossly was of normal size on laparoscopy. Intraoperative cholangiogram was performed showing no evidence of common bile duct stone and free drainage of contrast into the duodenum. Description of Procedure After informed consent was obtained patient brought to the operating room she was placed supine position and general endotracheal anesthesia was administered. The abdomen was then prepped and draped usual sterile fashion. A time-out was then performed correctly identifying the patient as well as procedure to be performed. She was given perioperative IV antibiotics. It started the procedure by placing a 5mm Optiview port into the left upper quadrant direct optical insertion. Once inside the abdomen insufflated to adequate pneumoperitoneum of 15mmHg of CO2. There were no adhesions in the area of the umbilicus. Placed a 5mm periumbilical trocar port under direct visualization and then switched laparoscopic over to the periumbilical port site. Looking to the upper portion of the abdomen I then placed a 10mm epigastric trocar port 2 right lateral subcostal 5mm trocar ports all under direct visualization. The gallbladder was distended and there was some adhesions of the omentum to the gallbladder wall. There is some minimal chronic thickening and very mild chronic cholecystitis. I was able to hold the gallbladder at the dome and elevate the gallbladder up over the right half liver towards the shoulder. I then stripped down the omental adhesions to the gallbladder wall easily without any difficulty. A 2nd laparoscopic grasper was then used to hold the gallbladder infundibulum. I then stripped down the visceral peritoneum off of the infundibular gallbladder to identify the cystic duct. The cystic duct was then dissected out circumferentially. Cystic artery was identified and dissected out circumferentially as well. The posterior wall the gallbladder at the infundibulum dissected free of the liver into the critical view was obtained. At this point I then placed a Ceballos clamp across the infundibulum the gallbladder. The cholangiocatheter was advanced through the channel in the clamp and then the infundibular gallbladder was pierced with the cholangiocatheter. I 1st flushed with saline and there was no leaking of saline from the gallbladder. I then injected about 15cc of full-strength Visipaque will water-soluble dye into the infundibular gallbladder and then into the cystic duct and into the common bile duct on intraoperative fluoroscopy. There is no evidence of retained common bile duct stone. There is no dilation of the common bile duct and there was free flow of contrast into the duodenum. I then removed the cholangiocatheter after flushing with more saline. I then placed 2 clips across the cystic duct proximally and then 2 clips distally high on infundibular gallbladder. The cystic duct was then divided with Endo Savita the cystic artery was then clipped in similar fashion and then divided as well. Ago was then resected off the liver utilized electrocautery. Once the gallbladder was freed from liver is placed into an E
[2023-11-15] MEDS: ONDANSETRON INJ 4 MG/2 ML VIAL IV PUSH (09:55)
[2023-11-15 11:18] LABS: Glucose Point of Care 116 mg/dl (65-105)
== END 2023-11-15 10:55 | disposition home or self-care (01) ==
PROVIDERS: PCP Internal Medicine; Visit Provider Surgery
PROC: 0FT44ZZ Resection of Gallbladder, Percutaneous Endoscopic Approach (ICD-10-PCS; CPT 47562; principal; 2023-11-15 07:30)
DX: K80.20 Calculus of gallbladder without cholecystitis without obstruction (principal); K85.10 Biliary acute pancreatitis without necrosis or infection; K21.9 Gastro-esophageal reflux disease without esophagitis; Z85.41 Personal history of malignant neoplasm of cervix uteri
CPT/HCPCS: 47563; 74300; 82948; 88304; A9270; C1713; J0690; J1100; J1170; J1200; J1885; J2250; J2405; J2704; J3010; J7120; Q9966

== ENCOUNTER 2023-12-14 11:15 | Outpatient (RCR) | payer OTHER, SELFPAY ==
--- NOTE | 2023-11-29 12:00 | PTOPEVAL1 ---
Assessment and note entered by Deepak Mchugh Evaluation Information Assessment Status Evaluation Diagnosis right knee pain Subjective Information Pt. reports that she has been experiencing right knee pain for the past couple years. She had recent MRI that revealed a meniscus tear. 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 She states that the pain has gotten worse over the past 6 months, especially with having to turn on the right knee. She states that she has had recent gall bladder surgery and been sedentary . She reports that the knee pain has decreased with her being more sedentary. she is also is noticing numbness described in the jennings of the right leg and down to the outside of the foot. Numbness is mostly noted when the pt. has been active and she can associate back pain when numbness is present.. She reports that she does have hx of arthritis in the low back. She states that the knee limits her ability to work outside, as well as to go up and down steps. She reports that she does have to navigate her basement steps and it is painful. 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 Reported Pain Level Pain Score 1: Self Report Assessment PT Clinical Summary Pt. is a 57 year old female who enters the clinic with right knee pain. She has hx of OA and meniscus pathology at the right knee. Currently the pt. presents with impaired ROM, impaired strength, pain, impaired gait and functional decline. Continued skilled PT is indicated in order to improve these areas to allow for improve comfort and efficiency with IADL's. Plan of Care Interventions Electrical Stimulation,Hot Pack/Cold Pack,Manual Therapy,Patient/Caregiver Educati,Therapeutic Activities,Therapeutic Exercise PT Services Indicated Yes Treatment Frequency and 1x/week x 4 visits Duration These treatments will address the objective and functional deficits as defined above. The patient will be advanced safely and appropriately in order for the patient to progress towards his/her prior level of function. Additional exercises will be introduced and as well as a comprehensive home exercise program upon discharge, if needed, ?to ensure carryover of functional gains achieved in the clinic. This treatment plan has been reviewed and agreement upon by the patient.
--- NOTE | 2023-11-29 12:04 | OPREHPOC ---
Outpatient Therapy Plan of Care This is a Multidisciplinary Plan of Care that may contain components documented by all disciplines (PT, OT, and ST.) PT Problem 1 PT Problem #1 Knowledge Deficit PT Goal 1 Goal Independent with a HEP addressing l.e. strength and ROM Target Visit 2 PT Goal 2 Goal Demonstrates safe lifting technique and safe mechanics with desired outdoor activities. Target Visit 4 PT Problem 2 PT Problem #2 Impaired Range of Motion PT Goal 1 Goal Pt. will achieve 0-130 degrees right knee active ROM Target Visit 4 PT Problem 3 PT Problem #3 Impaired Gait PT Goal 1 Goal Ambulate over level surface with equal right and left stance time. Target Visit 4 PT Problem 4 PT Problem #4 Impaired Functional Mobil PT Goal 1 Goal Pt. will demonstrate less than 20% limitation on the LEFS indicating improved function. Target Visit 4
--- NOTE | 2024-03-07 07:08 | PCPTNOTE ---
Mrs. Garcias attended a total of 3 treatment sessions from 11/29/23 to 12/14/23. She has failed to return to the clinic and has not contacted the clinic regarding her status. Refer to the last daily note for patient discharge status. Thank you for the referral of this patient. Deepak Mchugh, MPT
== END 2024-02-14 12:40 | disposition home or self-care (01) ==
LOC: ANHPT 11:15
PROVIDERS: PCP Internal Medicine; Visit Provider Internal Medicine
DX: M25.561 Pain in right knee (principal); R20.0 Anesthesia of skin
CPT/HCPCS: 97014; 97110; 97140; 97161; G0283

== ENCOUNTER 2024-01-19 00:52 | Day surgery (SDC) | payer OTHER, SELFPAY ==
[2024-01-11 11:03] VITALS: BMI 29.2
--- NOTE | 2024-01-11 11:09 | PC.NURSE ---
Report to the Outpatient Waiting Room, entrance under the green pavilion located off [facility], at time 7:00 on date 01/19/24. Planned Procedure Time: 9:00. Time changes happen often and if your time is changed the preop area will call you the afternoon before. - You and your visitor will be asked to self-screen and do not enter if you have any COVID symptoms. - A mask is optional within the hospital at this time. Patients may have clear liquids (water, carbonated beverages, clear teas, apple juice) until 3 hours prior to surgery with a maximum of 20 ounces. - No food from midnight until time of surgery Take the following medications with a SIP of water the morning of surgery: NONE DO NOT STOP ANY OF YOUR OTHER PRESCRIPTION MEDICATIONS PRIOR TO SURGERY ?EXCEPT THE FOLLOWING Medications to discontinue per physician: N/A Date to take last dose: N/A Please no make-up, nail german, hairspray, perfume, deodorant, or body powder the day of surgery. No jewelry (including any body piercings) or valuables the day of surgery, leave them at home. Please take a shower or bath the night before, or the morning of, surgery with an antibacterial soap. Wear comfortable, loose fitting clothing. - Jewelry must be removed prior to entering the operating room. Rings and piercings that are not removed may be cut off. - The hospital will not accept responsibility for valuables. - Please leave all valuables, including medications, at home the day of surgery. If you are going home after surgery, a licensed trackless trolley driver must drive you home. - NO public transportation without another adult if you receive anesthesia. - We recommend that an adult stay with you for 24 hours following discharge. - We also recommend that you do not drive, make important decision, drink alcoholic beverages, or take any drugs that were not prescribed by your health care provider for at least 24 hours after your discharge time. Follow any additional instructions given to you from your surgeon. If you or anyone in your household have experienced Covid symptoms in the past week, please notify your surgeon or the nurse liaison at the phone number below for possible testing. Telephone instructions given to CARMELO YOUNG and asked if any additional questions and then verbalized understanding. Patient advised to call surgeon office or pre surgery nurse liaison [phone] if any additional questions.
[2024-01-19] VITALS (10 sets, daily range): BP systolic 105–143; BP diastolic 62–82; PULSE 56–77; RESP 10–19; TEMP 36.1–37; O2SAT 96–100
[2024-01-19] MEDS: ACETAMINOPHEN 500 MG TABLET 1000 MG PO (06:39)
[2024-01-19] MEDS: CELECOXIB 200 MG CAPSULE PO (06:39)
--- NOTE | 2024-01-19 06:57 | WPDANESEPPF ---
Anes - Initial Pre Proc Eval Procedure: Operation Date: 01/19/24 07:30 Proposed Procedures p Right Knee Arthroscopy, Proceed as Indicated - Ravindra Argueta MD Date/Time: 01/19/24 06:57 Surgeon: Ravindra Argueta MD Pre Op Diagnosis: Rt Knee Lateral Meniscus Tear Patient Data Age: 58 Gender: F Height: 1.57 m Weight: 74.6 kg Last Vital Signs Temp 37.0 C 01/19/24 06:10 Pulse 77 01/19/24 06:10 Resp 16 01/19/24 06:10 BP 143/73 H 01/19/24 06:10 Pulse Ox 100 01/19/24 06:10 O2 Del Method Room Air 01/19/24 06:10 Allergies Allergy/AdvReac Type Severity Reaction Status Date / Time Rkoaumx-KCU-CuQ Reductase Allergy Muscle Pain Verified 01/19/24 06:26 Inhibitor Home Medications Medication Instructions Recorded Confirmed Type estradiol 0.045 mg-levonorgestrel 1 patch topical WEEKLY 01/11/24 01/19/24 History 0.015 mg/24hr weekly transderm patch (Climara Pro) Patient hx anesthesia problems: post op nausea/vomiting Family hx anesthesia problems: none Results Review: All pre-operative results and documents have been reviewed as part of the pre-operative evaluation. [facility] Past Medical History Medical History Depression with anxiety Dyslipidemia Heartburn Hiatal hernia History of cervical cancer 2011;s/p chemo/radiation Hyperlipidemia Osteopenia Pelvic pain pelvic pain PONV (postoperative nausea and vomiting) Surgical History Surgical History History of carpal tunnel repair History of inguinal hernia repair History of sinus surgery Hx laparoscopic cholecystectomy w IOC 11/15/23 Status post tonsillectomy Family History Family History Other Cerebrovascular accident Heart disease Hypertension Social History Social History Social History: caffeine use Smoking status: Never smoker Alcohol intake: never Alcohol use details: rare Substance use: never Substance use type: does not use Do You Feel Safe in your Home?: Yes Lack of Transportation: No Lack of Food: Never True Current Housing: I Have Housing Concerned About Future Housing: No Difficulty Paying Gas/Electric Bills: No Difficulty Paying for Meds: No Currently Unemployed: No Education: Associate Degree Difficulty w/ Childcare or Family Care: No Living arrangements: with family Occupation/Education: occupation Additional occupation/education comments: [employer] Gender identity (if verbalized by the patient): Female Spiritual care concerns: No Anes - Eval Final PreProcedure Day of Procedure 01/19/24 06:57 Patient weight: overweight Heart: regular rate and rhythm Lungs: clear to auscultation Airway: Mallampati scale class II Neurological: alert and oriented Last oral intake: >/= 8 hours ASA classification: II Emergent: no Anesthetic plan: proceed Anesthesia type and monitoring: general LMA and standard monitoring Results Review: All pre-operative results and documents have been reviewed as part of the pre-operative evaluation. Informed Consent: The patient's anesthetic plan and its attendant risks and benefits were discussed with the patient/family/POA. Questions were solicited and answers provided to the satisfaction of the patient/family/POA.
--- NOTE | 2024-01-19 07:17 | WPDHPUPDATE1 ---
History and Physical Update Update Date/Time: 01/19/24 07:17 History and Physical has been reviewed, including an updated exam of the patient. There are NO changes in the patient's condition. Risks, benefits, and alternatives have been discussed and questions answered. Patient agrees to proceed with procedure.
[2024-01-19] MEDS: LACTATED RINGERS 1,000 ML 30 ML IV CONT ×2 (07:30→08:45)
[2024-01-19] MEDS: ceFAZolin 2 GM/D5W 50 ML 2 GM/50 ML BAG IVPB (07:56)
[2024-01-19] MEDS: BUPivacaine HCL 0.5% 10 ML AMP 30 ML INFILTRATE (08:18)
--- NOTE | 2024-01-19 08:25 | W.PM.PROC2 ---
Procedure Note - Detailed Date of Procedure 01/19/24 Pre-op Diagnosis Rt Knee Lateral Meniscus Tear Post-op Diagnosis Same Procedure Performed LEFT KNEE SCOPE Surgeon Ravindra Argueta MD Anesthesia General Description of Procedure PATIENT WAS TAKEN TO THE OR. LEFT LEG WAS PREPPED AND DRAPED STERILE. TROCARS WERE PLACED IN THE USUAL FASHION. CAMERA WAS INTRODUCED. THERE WAS CHONDROMALACIA TO THE PATELLA FEMORAL JOINT. THERE WAS A LOT OF SYNOVITIS IN ALL COMPARTMENTS. THE MEDIAL COMPARTMENT SHOWED CHONDROMALACIA TO THE MEDIAL FEMORAL CONDYLE. A SHAVER WAS USED TO PREFORM A CHONDROPLASTY. THERE WAS NO MEDIAL MENISCUS TEAR. THE ACL WAS INTACT. THE LATERAL MENISCUS WAS TORN AND WAS RESECTED AT THE MID SUBSTANCE. THE LATERAL COMPARTMENT HAD GRADE 3 AND 4 CHONDROMALACIA. CHONDROPLASTY WAS PREFORMED. A SYNOVECTOMY WAS PREFORMED WELL. THE PATELLO FEMORAL JOINT UNDERWENT CHONDROPLASTY. THERE WAS GRADE 3 AND 4 CHONDROMALACIA IN PART OF THE TROCHLEA AND PART OF THE PATELLA. SYNOVECTOMY WAS PREFORMED IN THE SUPERIOR MEDIAL COMPARTMENT. THE WOUNDS WERE APPROXIMATED WITH 4.0 NYLON. STERILE DRESSING WAS APPLIED. PATIENT WAS EXTUBATED. Estimated Blood Loss -5.0 Complications No immediate complications Condition Stable Disposition PACU
[2024-01-19] MEDS: fentaNYL CITRATE INJ (*CRX) 100 MCG/2 ML VIAL 25 MCG IV PUSH ×2 (09:05→09:15)
[2024-01-19] MEDS: oxyCODONE HCL (*CRX) 5 MG TAB IR PO (10:35)
== END 2024-01-19 10:55 | disposition home or self-care (01) ==
PROVIDERS: PCP Internal Medicine; Visit Provider Orthopaedic Surgery
PROC: (CPT 29870; principal; 2024-01-19 07:30)
DX: M23.361 Other meniscus derangements, other lateral meniscus, right knee (principal); M94.261 Chondromalacia, right knee; M65.861 Other synovitis and tenosynovitis, right lower leg
CPT/HCPCS: 29881; 29876; A9270; J0690; J1100; J2250; J2405; J2704; J3010; J7120

== ENCOUNTER 2024-03-21 13:33 | Outpatient (CLI) | payer OTHER, SELFPAY ==
--- NOTE | ~2024-03-21 | MR_ITS ---
EXAMINATION: MR knee RT wo con DATE: 03/21/2024 14:07 INDICATION: Other tear of lateral meniscus. Right knee pain and swelling. TECHNIQUE: Magnetic resonance imaging (MRI) of the right knee was performed without intravenous contr ast. Sequences included axial PD-weighted FS FSE, coronal PD-weighted FSE and PD-weighted FS FSE, sag ittal PD-weighted FSE, and sagittal T2-weighted FS FSE. COMPARISON: Right knee MRI 10/19/2023, radiograph 12/18/2023 FINDINGS: Medial compartment: Medial meniscus is normal. There is deep partial-thickness cartilage loss of femoral condyle involvin g the central articular surface. There is deep fissuring of tibial cartilage involving the central ar ticular surface. Osteophytes are noted. Lateral compartment: Lateral meniscus is normal. There is shallow partial-thickness cartilage loss of tibial condyle invol ving the central articular surface. There is deep partial-thickness cartilage loss of femoral condyle involving the central articular surface. Osteophytes are noted. Patellofemoral compartment: There is deep partial-thickness cartilage loss of patellar medial facet and median ridge and shallow partial-thickness cartilage loss of patellar lateral facet. There is deep partial-thickness cartilage loss of central and medial trochlea. Osteophytes are noted. Ligaments and tendons: The anterior and posterior cruciate ligaments are normal. Medial collateral ligament is normal. There are changes of prior sprain of fibular collateral ligament characterized by thickening and increased signal intensity proximally. There is mild patellar tendinopathy. Fluid: There is a small knee joint effusion. There is mild superficial infrapatellar bursitis. IMPRESSION: 1. Moderate tricompartmental chondrosis. 2. Normal menisci. 3. Small knee joint effusion. Reviewed, dictated and finalized at location A.
== END 2024-03-21 13:34 ==
LOC: MICIMG 13:33
PROVIDERS: PCP Internal Medicine; Visit Provider Orthopaedic Surgery
DX: M94.261 Chondromalacia, right knee (principal); M25.461 Effusion, right knee
CPT/HCPCS: 73721

== ENCOUNTER 2024-05-10 12:21 | Outpatient (CLI) | payer OTHER, SELFPAY ==
[2024-05-10 12:40] LABS: Hematocrit 44.5 % (35.0-49.0); Hemoglobin 14.7 g/dL (12.0-15.0); Mean Corpuscular Volume 87.8 fL (78.0-102.0); Mean Platelet Volume 9.7 fl (9.2-11.8); Platelet Count Result 236 K/mm3 (150-420); Red Blood Count 5.07 M/mm3 (4.20-5.40); Red Cell Distribution Width 12.1 % (11.6-14.4); White Blood Count 10.3 K/mm3 (4.8-10.8)
[2024-05-10 12:41] LABS: Appearance Urine Clear (Clear); Bilirubin Urine Negative (Negative); Blood Urine Negative (Negative); Color Urine Light Yellow (Yellow); Glucose Urine UA Negative (Negative); Ketones Urine 1+ (Negative); Leukocyte Esterase Ur Trace (Negative); Nitrate Urine Negative (Negative); Protein Urine Negative (Negative); Specific Grav Ur 1.015 (1.010-1.020); Urobilinogen Urine 0.2 mg/dL (0.2-1.0)
[2024-05-10 12:50] LABS: Add Urine Microscopic? YES; Bacteria Urine None seen /hpf; RBC Urine None seen /hpf (0-2); Squamous Epithelial Cell Urine Moderate /hpf (Few); WBC Urine Noted /hpf (0-3)
[2024-05-10 13:17] LABS: Alanine Aminotransferase 24 U/L (14-59); Albumin Level 4.1 g/dL (3.4-5.0); Alkaline Phosphatase 81 U/L (46-116); Anion Gap 10 mmol/L (4-12); Aspartate Amino Transferase 21 U/L (15-37); Bilirubin,Total 0.7 mg/dL (0.00-1.00); Blood Urea Nitrogen 11 mg/dL (7-18); Calcium 9.3 mg/dL (8.5-10.1); Carbon Dioxide 26 mmol/L (21-32); Chloride 100 mmol/L (98-108); Estimated Glomerular Filt Rate > 60; Glucose 88 mg/dL (70-99); Osmolality Calculated 280 mOsm/kg (285-295); Potassium 3.7 mmol/L (3.5-5.1); Sodium 136 mmol/L (136-145); Total Protein 7.3 g/dL (6.4-8.2)
[2024-05-10 14:47] LABS: Amylase 61 U/L (25-115); Lipase 36 U/L (16-77)
== END 2024-05-10 12:22 | disposition home or self-care (01) ==
LOC: CHSLAB 12:22
PROVIDERS: PCP Internal Medicine; Visit Provider Internal Medicine
DX: N39.0 Urinary tract infection, site not specified (principal); M54.50 Low back pain, unspecified; R50.9 Fever, unspecified; R11.0 Nausea
CPT/HCPCS: 36415; 80053; 81001; 82150; 83690; 85027; 87086; 87088

== ENCOUNTER 2024-09-22 09:31 | Emergency (ER) | payer OTHER, SELFPAY ==
--- NOTE | ~2024-09-22 | XR_ITS ---
EXAMINATION: XR chest 2V DATE: 09/22/2024 10:00 INDICATION: Cough, shortness of breath. TECHNIQUE: Frontal and lateral views of the chest were obtained. COMPARISON: Chest single view 11/13/2022 FINDINGS: There is no pneumonia, pleural effusion, or pneumothorax. The heart size is normal. There a re surgical clips in the abdomen. IMPRESSION: 1. No acute cardiopulmonary disease. Reviewed, dictated and finalized at location [facility] [employer]
--- NOTE | 2024-09-22 09:35 | ED.UPPEXIN ---
HPI - Extremity Injury (Upper) General Stated Complaint: UPPER RESP/SOB History of Present Illness HPI narrative: error Related Data Home Medications Medication Instructions Recorded Confirmed estradiol 0.045 mg-levonorgestrel 1 patch topical WEEKLY 01/11/24 03/25/24 0.015 mg/24hr weekly transderm patch (Climara Pro) Allergies Allergy/AdvReac Type Severity Reaction Status Date / Time Zrgpudt-HLE-EdG Reductase Allergy Muscle Pain Verified 03/25/24 14:26 Inhibitor PMFSH Past Medical History Medical History Depression with anxiety Dyslipidemia Heartburn Hiatal hernia History of cervical cancer 2011;s/p chemo/radiation Hyperlipidemia Osteopenia Pelvic pain pelvic pain PONV (postoperative nausea and vomiting) Surgical History Surgical History History of carpal tunnel repair History of inguinal hernia repair History of sinus surgery Hx laparoscopic cholecystectomy w IOC 11/15/23 Status post tonsillectomy Family History Family History Other Cerebrovascular accident Heart disease Hypertension Social History Social History Social History: caffeine use Smoking status: Never smoker Alcohol intake: never Alcohol use details: rare Substance use: never Substance use type: does not use Do You Feel Safe in your Home?: Yes Lack of Transportation: No Lack of Food: Never True Current Housing: I Have Housing Concerned About Future Housing: No Difficulty Paying Gas/Electric Bills: No Difficulty Paying for Meds: No Currently Unemployed: No Education: Associate Degree Difficulty w/ Childcare or Family Care: No Living arrangements: with family Occupation/Education: occupation Additional occupation/education comments: [employer] Gender identity (if verbalized by the patient): Female Spiritual care concerns: No Discharge Plan Discharge Clinical Impression: Sinusitis Patient Disposition: Other Condition: Stable Instructions: Antibiotic Form Prescriptions: No Action Climara Pro 0.045-0.015 mg/24 hr patch weekly 1 patch topical WEEKLY Follow-up/Referrals: UNKNOWN,DOCTOR [Primary Care Provider] - Time of Disposition: 09:36
--- NOTE | 2024-09-22 09:36 | ED_ITS ---
HPI - URI/Sore Throat General Chief Complaint: Upper Respiratory Infection Stated Complaint: UPPER RESP/SOB Source: patient Mode of arrival: ambulatory Limitations: no limitations History of Present Illness HPI Narrative: Patient is a 58-year-old female with a cough and facial nasal congestion as well as chest congestion for the past week. MD elicited complaint: fever ( Low-grade), cough, sore throat, rhinorrhea, nasal congestion and sinus pain Pertinent past history: sinusitis and seasonal allergies Onset (ago): week(s) (1) Consistency: constant Severity: moderate Pain scale (0-10): 5 Description of mucous: yellow Able to tolerate fluids by mouth: Yes Exacerbating factors: changing head position and leaning forward Relieving factors: nothing Associated symptoms: fever, rhinorrhea, nasal congestion and sore throat Treatments prior to arrival: none Related Data Home Medications Medication Instructions Recorded Confirmed estradiol 0.045 mg-levonorgestrel 1 patch topical WEEKLY 01/11/24 09/22/24 0.015 mg/24hr weekly transderm patch (Climara Pro) Allergies Allergy/AdvReac Type Severity Reaction Status Date / Time Tgasidh-AXO-BlO Reductase Allergy Muscle Pain Verified 09/22/24 09:38 Inhibitor Review of Systems Review of Systems: All systems reviewed & are unremarkable except as noted in HPI and below Constitutional: Constitutional: Reports no additional constitutional complaints Eyes: Eyes: Reports no additional eye complaints ENT: Reports system reviewed and no additional complaints, except as documented Cardiovascular: Cardiovascular: Reports no additional cardiovascular complaints Respiratory: Respiratory: Reports no additional respiratory complaints Gastrointestinal: Gastrointestinal: Reports no additional gastrointestinal complaints Genitourinary: Genitourinary: Reports no additional female genitourinary complaints Musculoskeletal: Musculoskeletal: Reports no additional musculoskeletal compla ints Integumentary/Breasts: Skin/Breast: Reports system reviewed and no additional complaints, except as docu Neurologic: Reports system reviewed and no additional complaints, except as documented Psychiatric: Psychiatric: Reports no additional psychiatric complaints Endocrine: Endocrine: Reports no additional endocrine complaints Hematologic/Lymphatic: Hematologic/Lymphatic: Reports no additional hematologic/lymphatic complaints Allergic/Immunologic: Allergic/Immunologic: Reports no additional allergic/immunologic complaints PMFSH Past Medical History Medical History Depression with anxiety Dyslipidemia Heartburn Hiatal hernia History of cervical cancer 2011;s/p chemo/radiation Hyperlipidemia Osteopenia Pelvic pain pelvic pain PONV (postoperative nausea and vomiting) Surgical History Surgical History History of carpal tunnel repair History of inguinal hernia repair History of sinus surgery Hx laparoscopic cholecystectomy w IOC 11/15/23 Status post tonsillectomy Family History Family History Other Cerebrovascular accident Heart disease Hypertension Social History Social History Social History: caffeine use Smoking status: Never smoker Alcohol intake: never Alcohol use details: rare Substance use: never Substance use type: does not use Do You Feel Safe in your Home?: Yes Lack of Transportation: No Lack of Food: Never True Current Housing: I Have Housing Concerned About Future Housing: No Difficulty Paying Gas/Electric Bills: No Difficulty Paying for Meds: No Currently Unemployed: No Education: Associate Degree Difficulty w/ Childcare or Family Care: No Living arrangements: with family Occupation/Education: occupation Additional occupation/education comments: [employer] Gender identity (if verbalized by the patient): Female Spiritual care concerns: No Exam Const: General: healthy appearing Nutritional Appearance: well nourished Orientation/consciousness: patient oriented x3 Limitations: no limitations HENMT: Head: normal to inspection Ears: external ears normal Face/Nose/Sinus: Normal external nose present Face and sinus: sinus tenderness frontal and maxillary Eyes: Conjunctivae: conjunctivae normal Pupils: Equal, round and reactive pupils present EOM: EOMs intact bilaterally Neck: Neck: normal visual inspection Chest: Chest palpation & inspection: normal inspection of the chest Resp: Effort & Inspection: normal respiratory effort and not labored Auscultation: clear to auscultation bilaterally and no crackles Cardio: Rate: regular rate Rhythm: regular rhythm Heart sounds: no murmurs GI: Inspection: non-distended GI Palp: Yes Soft to palpation and No Tenderness to palpation present (GI) Auscultation: normal bowel sounds : General: Yes bladder normal to palpation Back/Spine/Pelvis: Back: no CVA tenderness Skin: General skin exam: normal color Rashes: no rashes Wounds: no wounds Neuro: General: patient oriented x3 Cranial nerves: Yes Nystagmus not prese nt Speech: normal speech Gait exam (Neuro): Normal gait present Extrem: General: normal to inspection Psych: Mental Status: mental status grossly normal Affect: normal affect Attitude: cooperative MDM - URI/Sore Throat MDM Narrative Medical decision making narrative: patient is a 58-year-old female with a sinus infection. We will go ahead and do Augmentin and prednisone. Lab Data Attestation: I reviewed the patient's lab results. Lab results narrative: COVID triple screen was negative, strep test was negative Imaging Data Attestation: I personally reviewed and interpreted this imaging study as follows: Radiologist's impression: chest x-ray was negative for acute process Discharge Plan Discharge Clinical Impression: Sinusitis Qualifiers: Sinusitis location: unspecified location Chronicity: acute Recurrence: not specified as recurrent Qualified Code(s): J01.90 - Acute sinusitis, unspecified Patient Disposition: Other Condition: Stable Instructions: Antibiotic Form Prescriptions: New amoxicillin-pot clavulanate 875-125 mg tablet 1 tablet PO BID 10 Days Qty: 20 0RF prednisone 20 mg tablet 40 mg PO DAILY 3 Days Qty: 6 0RF No Action Climara Pro 0.045-0.015 mg/24 hr patch weekly 1 patch topical WEEKLY Follow-up/Referrals: UNKNOWN,DOCTOR [Non-Staff] - Time of Disposition: 09:36
[2024-09-22 09:45] VITALS: O2SAT 97
[2024-09-22 09:46] VITALS: BP 150/86; PULSE 107; RESP 18; TEMP 36.4; O2SAT 97
--- NOTE | 2024-09-22 09:47 | PC.NURSE ---
covid swab sent to lab
[2024-09-22 10:15] LABS: Strep Group A RT-PCR NOT DETECTED (Negative)
[2024-09-22 10:27] LABS: SARS-CoV-2 RNA PCR Negative (Negative)
[2024-09-22 10:28] LABS: Influenza A QL RT-PCR Negative (Negative); Influenza B QL RT-PCR Negative (Negative); RSV RNA, RT-PCR Negative (Negative)
[2024-09-22 11:15] VITALS: BP 134/87; PULSE 80; RESP 18; TEMP 36.3; O2SAT 96
== END 2024-09-22 11:15 | disposition home or self-care (01) ==
PROVIDERS: Emergency Provider Emergency Medicine; PCP Internal Medicine
DX: J01.90 Acute sinusitis, unspecified (principal); Z20.822 Contact with and (suspected) exposure to COVID-19
CPT/HCPCS: 71046; 87637; 87651; 99283

== ENCOUNTER 2024-12-17 10:52 | Emergency (ER) | payer OTHER, SELFPAY ==
--- NOTE | ~2024-12-17 | XR_ITS ---
EXAMINATION: XR chest 1V portable DATE: 12/17/2024 11:11 INDICATION: Cough and fever. Shortness of breath. Left chest pain. TECHNIQUE: A single frontal view of the chest was obtained. COMPARISON: Chest 2 views 09/22/2024, chest CT 10/26/2023 FINDINGS: There is no pneumonia, pleural effusion, or pneumothorax. The heart size is normal. Calcifi ed right hilar lymph nodes are consistent with old granulomatous disease. IMPRESSION: 1. No acute cardiopulmonary disease. Reviewed, dictated and finalized at location A. H
[2024-12-17 10:52] VITALS: BP 159/88; PULSE 108; RESP 20; TEMP 36.3; O2SAT 97
--- NOTE | 2024-12-17 11:00 | ED.URI ---
HPI - URI/Sore Throat General Chief Complaint: Upper Respiratory Infection Stated Complaint: cough, fever Time Seen by Provider: 12/17/24 10:59 Source: patient Mode of arrival: ambulatory Limitations: no limitations History of Present Illness HPI Narrative: Patient is a 58-year-old female with cough and congestion and chest fullness for the past 6 days. She had exposure to influenza A. Fever and chills. General aches and pains. MD elicited complaint: fever, cough and nasal congestion Pertinent past history: other ( None) Onset (ago): day(s) ( 6) Consistency: constant Severity: moderate Pain scale (0-10): 1 Description of mucous: clear Able to tolerate fluids by mouth: Yes Exacerbating factors: nothing Relieving factors: nothing Context: sick contacts and other(s) with similar symptoms Associated symptoms: fever, chills, myalgias, nasal congestion and cough Treatments prior to arrival: acetaminophen and ibuprofen Related Data Home Medications ?Medication ?Instructions ?Recorded ?Confirmed ?Last Taken ?Type estradiol 0.045 mg-levonorgestrel 1 patch topical WEEKLY 01/11/24 09/22/24 Unknown History 0.015 mg/24hr weekly transderm patch (Climara Pro) Allergies Allergy/AdvReac Type Severity Reaction Status Date / Time Cyrbcda-PVK-FrP Reductase Allergy Muscle Pain Verified 12/17/24 11:14 Inhibitor Review of Systems Review of Systems: All systems reviewed & are unremarkable except as noted in HPI and below Constitutional: Constitutional: Reports no additional constitutional complaints Eyes: Eyes: Reports no additional eye complaints ENT: Reports system reviewed and no additional complaints, except as documented Cardiovascular: Cardiovascular: Reports no additional cardiovascular complaints Respiratory: Respiratory: Reports no additional respiratory complaints Gastrointestinal: Gastrointestinal: Reports no additional gastrointestinal complaints Genitourinary: Genitourinary: Reports no additional female genitourinary complaints Musculoskeletal: Musculoskeletal: Reports no additional musculoskeletal complaints Integumentary/Breasts: Skin/Breast: Reports system reviewed and no additional complaints, except as docu Neurologic: Reports system reviewed and no additional complaints, except as documented Psychiatric: Psychiatric: Reports no additional psychiatric complaints Endocrine: Endocrine: Reports no additional endocrine complaints Hematologic/Lymphatic: Hematologic/Lymphatic: Reports no additional hematologic/lymphatic complaints Allergic/Immunologic: Allergic/Immunologic: Reports no additional allergic/immunologic complaints [facility] Past Medical History Medical History PONV (postoperative nausea and vomiting) Pelvic pain pelvic pain Osteopenia History of cervical cancer 2011;s/p chemo/radiation Hyperlipidemia Hiatal hernia Heartburn Depression with anxiety Dyslipidemia Surgical History Surgical History Hx laparoscopic cholecystectomy w IOC 11/15/23 History of sinus surgery History of carpal tunnel repair History of inguinal hernia repair Status post tonsillectomy Family History Family History Other Cerebrovascular accident Heart disease Hypertension Social History Social History Social History: caffeine use Smoking status: Never smoker Alcohol intake: never Alcohol use details: rare Substance use: never Substance use type: does not use Do You Feel Safe in your Home?: Yes Lack of Transportation: No Lack of Food: Never True Current Housing: I Have Housing Concerned About Future Housing: No Difficulty Paying Gas/Electric Bills: No Difficulty Paying for Meds: No Currently Unemployed: No Education: Associate Degree Difficulty w/ Childcare or Family Care: No Living arrangements: with family Occupation/Education: occupation Additional occupation/education comments: [employer] Gender identity (if verbalized by the patient): Female Spiritual care concerns: No Exam Const: General: ill appearing Nutritional Appearance: well nourished Orientation/consciousness: patient oriented x3 Limitations: no limitations HENMT: Head: normal to inspection Ears: external ears normal Face/Nose/Sinus: Normal external nose present Eyes: Conjunctivae: conjunctivae normal Pupils: Equal, round and reactive pupils present EOM: EOMs intact bilaterally Neck: Neck: normal visual inspection Chest: Chest palpation & inspection: normal inspection of the chest Resp: Effort & Inspection: normal respiratory effort and not labored Auscultation: clear to auscultation bilaterally and no crackles Cardio: Rate: regular rate Rhythm: regular rhythm Heart sounds: no murmurs GI: Inspection: non-distended GI Palp: Yes Soft to palpation and No Tenderness to palpation present (GI) Auscultation: normal bowel sounds : General: Yes bladder normal to palpation Back/Spine/Pelvis: Back: no CVA tenderness Skin: General skin exam: normal color Rashes: no rashes Wounds: no wounds Neuro: General: patient oriented x3 Cranial nerves: Yes Nystagmus not present Speech: normal speech Extrem: General: normal to inspection Psych: Mental Status: mental status grossly normal Affect: normal affect Attitude: cooperative Course Vital Signs Vital signs: Vital Signs Temperature 36.3 C L 12/17/24 10:52 Pulse Rate 108 H 12/17/24 10:52 Respiratory Rate 20 12/17/24 10:52 Blood Pressure 159/88 H 12/17/24 10:52 Pulse Oximetry 97 12/17/24 10:52 Oxygen Delivery Room Air 12/17/24 10:52 Temperature 36.3 C L 12/17/24 10:52 Pulse Rate 90 12/17/24 12:05 Respiratory Rate 18 12/17/24 12:05 Blood Pressure 123/80 12/17/24 12:05 Pulse Oximetry 98 12/17/24 12:05 Oxygen Delivery Autopap 12/17/24 12:05 MDM - URI/Sore Throat MDM Narrative Medical decision making narrative: patient is a 58-year-old female with cough and congestion and exposure to influenza A. We will do a COVID panel and a chest x-ray. Lab Data Attestation: I reviewed the patient's lab results. Labs: Lab Results 12/17/24 Range/Units 11:00 Influenza A (RT-PCR) Positive A (Negative) Influenza B (RT-PCR) Negative (Negative) RSV (RT-PCR) Negative (Negative) SARS-CoV-2 RNA (RT-PCR) Negative (Negative) Imaging Data Attestation: I personally reviewed and interpreted this imaging study as follows: Radiologist's impression: Chest x-ray is negative for acute process Discharge Plan Discharge Clinical Impression: Influenza A Patient Disposition: Home, Self-Care Condition: Stable Instructions: Influenza (ED) Patient Language: Danish Prescriptions: New benzonatate 200 mg capsule 200 mg PO TID PRN (Reason: cough) Qty: 30 0RF No Action amoxicillin-pot clavulanate 875-125 mg tablet 1 tablet PO BID 10 Days Qty: 20 0RF prednisone 20 mg tablet 40 mg PO DAILY 3 Days Qty: 6 0RF Coditussin AC 10-200 mg/5 mL liquid 5 ml PO Q6H PRN (Reason: cough) Qty: 300 0RF Rx Instructions: 5-10cc per dose Climara Pro 0.045-0.015 mg/24 hr patch weekly 1 patch topical WEEKLY Follow-up/Referrals: Keshia Parker MD [Primary Care Provider] - Time of Disposition: 12:06
[2024-12-17 11:26] VITALS: BP 115/93; PULSE 97; RESP 18; O2SAT 97
[2024-12-17 11:52] LABS: SARS-CoV-2 RNA PCR Negative (Negative)
[2024-12-17 11:59] LABS: Influenza A QL RT-PCR Positive (Negative); Influenza B QL RT-PCR Negative (Negative); RSV RNA, RT-PCR Negative (Negative)
[2024-12-17 12:05] VITALS: BP 123/80; PULSE 90; RESP 18; O2SAT 98
--- OUTSIDE RECORDS SUMMARY | 2024-12-17 12:53 | XMS_ITS | Referral Summary ---
Author Organization [facility] Address [address] [place] [address] Care Team Providers Care Heel Cover Softener Name Role Phone Keshia Parker MD Primary Care Provider [phone] Encounters Date Type Department Care Team Description 09/27/2024 1:34 PM COPRA PROCESSOR - 09/27/2024 11:59 PM COPRA PROCESSOR Hospital Encounter [facility] [address] [place] [id number] Israel Beck MD Pain, abdominal; Abdominal pressure; Flank pain Discharge Disposition: Discharge to home or self care from Last 3 Months Allergies No known active allergies Medications acetaminophen (TYLENOL) 325 mg tablet Take 1 tablet (325 mg total) by mouth as needed for pain Active ibuprofen (ADVIL,MOTRIN) 600 mg tablet Take 1 tablet (600 mg total) by mouth every 6 (six) hours as needed for pain 30 tablet 03/16/2021 Active scopolamine 1 mg over 3 days patch 3 day 12/01/2021 Active azithromycin (ZITHROMAX) 250 mg tablet Take 1 tablet (250 mg total) by mouth 12/22/2023 Active celecoxib (CeleBREX) 200 mg capsule Take 1 capsule (200 mg total) by mouth 10/25/2023 Active HYDROcodone-lo taminophen (NORCO) 5-325 mg per tablet 10/26/2023 Activ e ondansetron (ZOFRAN) 4 mg tablet Take 1 tablet (4 mg total) by mouth 11/15/[address] (PROTONIX) 40 mg EC tablet 10/26/2023 Active terbinafine (LamiSIL) 250 mg tablet Take 1 tablet (250 mg total) by mouth 01/04/2024 Active oxyCODONE 5 mg tablet, oral only 11/15/2023 Active prochlorperazin e (COMPAZINE) 10 mg tablet Take 1 tablet (10 mg total) by mouth 10/26/2023 Active Climara Pro 0.045-0.015 mg/[address] 1 PATCH ON THE SKIN ONCE A WEEK 12 patch 3 10/21/2024 Active Active Problems Problem Noted Date Diagnosed Date Symptoms of urinary tract infection 09/06/2024 Screening for malignant neoplasm 07/29/2021 Overview (07/29/2021): Added automatically from request for surgery [id number] Pelvic pain 03/31/2021 Malignant neoplasm of exocervix (CMS/HCC) 2020 Cancer Staging:Clinical:FIGO Stage IIB(cT2b, cM0) - Signed by Israel Beck MD on 02/25/2021 Thickened endometrium 02/25/2021 Overview (02/25/2021): Added automatically from request for surgery [id number] Swelling of ankle, right 06/11/2018 Pain and swelling of lower leg, right 06/11/2018 Encounter for follow-up exam ination after combined treatment for malignant neoplasm 07/03/2016 Cervical cancer, FIGO stage IIB 12/09/2015 Cancer Staging:Clinical:FIGO Stage IIB(T2b, N0, M0) - Signed by Israel Beck MD on 08/21/2018 International Federation of Gynecology and Obstetric[employer] (FIGO) stage IIB malignant neoplasm of cervix 12/09/2015 Pain in female genitalia on intercourse 12/09/19 16 Insomnia 12/09/2015 Vasomotor symptoms due to menopause 12/09/2015 History of hypothyroidism 11/07/2013 Hyperlipidemia 11/07/2013 Chronic sinusitis 11/04/2013 Nausea 09/20/2012 Headache 08/30/2012 Depression 05/19/2011 Carpal tunnel syndrome 01/07/2011 Immunizations Immunization Administration Dates Next Due Influenza, Quadrivalent, Split, Intramuscular Influenza, Quadrivalent, Spl it, Preservative Free, Intramuscular 07/13/2018,07/12/2018 Influenza, Trivalent, IM (MDV) 09/10/2012 Pneumococcal Conjugate PCV 13 07/13/2016 Tdap 09/10/2012 Social History Tobacco Use Types Packs/Day Years Used Date Smoking Tobacco: Never Smokeless Tobacco: Never Tobacco Cessation:Counseling Given: No Alcohol Use Standard Drinks/Week Comments Yes 0 (1 standard drink = 0.6 oz pur e alcohol) AUDIT-C Answer Date Recorded Q1: How often do you have a drink containing alc ohol? Never 08/26/2021 Average Number of Drinks Not on file 021 Q3: How often do you have si x or more drinks on one occasion? Never 08/26/2021 Hunger Vital Sign Answer Date Recorded Within the past 12 months, y ou worried that your food would run out before you got the money to buy more. Never true 04/01/20 Within the past 12 months, t he food you bought just didn't last and you didn't have money to get more. Never true 04/01/2021 PRAPARE - Transportation Answer Date Re corded In the past 12 months, has l ack of transportation kept you from medical appointments or from getting medications? No 03/23 In the past 12 months, has l ack of transportation kept you from meetings, work, or from getting things needed for daily living? No 04/01/2021 Comments No Sex and Gender Information Value Date Recorded Sex Assigned at Not on file Legal Sex Female 2:58 AM COPRA PROCESSOR Gender Identity Not on file Sexual Orientation Not on file Occupation Industry Job Start Date Job End Date Not on file Not on file Not on file Not on file Last Filed Vital Signs Vital Sign Reading Time Taken Comments Blood Pressure 144/85 08/21/2024 1:38 PM CDT Pulse 93 08/21/2024 1:38 PM CDT Temperature 36.9 C (98.5 F) 08/21/2024 1:38 PM CDT Respiratory Rate 16 08/21/2024 1:38 PM CDT Oxygen Saturation 98% 08/21/2024 1:38 PM CDT Inhaled Oxygen Concentration - - Weight 74.8 kg (165 lb) 08/21/2024 1:38 PM CDT Height 157.5 cm (5' 2 ) 08/09/2023 2:14 PM CDT Body Mass Index 30.18 08/09/2023 2:14 PM CDT Plan of Treatment Not on file Procedures Procedure Name Priority Date/Time Associated Diagnosis Comments CT ABDOMEN PELVIS W CONTRAST Routine 09/27/2024 2:34 PM COPRA PROCESSOR Pain, abdominal Abdominal pressure Flank pain POCT CREATININE - DEVICE Routine 09/27/2024 1:52 PM COPRA PROCESSOR PAP ONLY Routine 08/21/2024 2:47 PM CDT COLONOSCOPY 08/26/2021 10:28 AM CDT from Last 3 Months or Most Recently Relevant to Health Maintenance Results * CT Abdomen Pelvis W Contrast (09/27/2024 2:34 PM COPRA PROCESSOR) Anatomical Region Laterality Modality Body N/A Computed Tomogra phy 09/27/2024 2:57 PM COPRA PROCESSOR Impressions 09/27/2024 2:57 PM COPRA PROCESSOR No imaging explanation for patient's symptoms. Electronically signed by: Ally Ramos M.D. Narrative 09/27/2024 2:57 PM COPRA PROCESSOR EXAMINATION: Computed tomography of the abdomen and pelvis with intravenous contrast HISTORY: Abdominal pain, low back pain, urinary frequency TECHNIQUE: Transaxial computed tomographic images of the abdomen and pelvis were obtained with intravenous contrast according to the standard protocol after the uneventful administration of 69 mL Opti-Ray 350 intravenous contrast. COMPARISON: Abdomen and pelvis MRI 05/06/[address] on 04/21/2021 FINDINGS: Lung bases are clear. Heart size is normal. There is no pericardial effusion. A small right fat-containing Bochdalek hernia is seen. No suspicious hepatic lesion. Post small hypoattenuating lesions within the right hemiliver are consistent with cysts better visualized on prior MRI. Gallbladder is absent. There is no extrahepatic biliary dilatation. Mild prominence of the intrahepatic bile ducts is likely due to reservoir effect. The spleen is normal with scattered calcified granulomas. Pancreas and both adrenal glands are unremarkable. There is no hydronephrosis or nephrolithiasis. A few hypoattenuating lesions within the both kidneys which are too small to fully characterize however statistically likely represent cysts. The bladder is normal. Surgical clips are seen in the cervix. Otherwise the uterus is normal. Previously seen dilatation of the uterine cavity has resolved. There is a small hiatal hernia, otherwise the stomach is normal. There is no evidence of bowel obstruction. Unchanged 7 mm left para-aortic lymph node. 8 mm nodule in the left mesorectal fat (series 2 image 173) previously appeared as fat-containing lesion and could represent a sequela of fat necrosis in the setting of prior epiploic appendicitis. Otherwise no abdomen or pelvis enlarged lymph nodes. There is no free fluid or free air. Abdominal aorta is normal in caliber with scattered atherosclerotic calcifications. There is a suspicious osseous lesion. Procedure Note Ally Dobbs MD - 09/27/2024 EXAMINATION: Computed tomography of the abdomen and pelvis with intravenous contrast HISTORY: Abdominal pain, low back pain, urinary frequency TECHNIQUE: Transaxial computed tomographic images of the abdomen and pelvis were obtained with intravenous contrast according to the standard protocol after the uneventful administration of 69 mL Opti-Ray 350 intravenous contrast. COMPARISON: Abdomen and pelvis MRI 05/06/[address] abdomen [address] on 04/21/2021 FINDINGS: Lung bases are clear. Heart size is normal. There is no pericardial effusion. A small right fat-containing Bochdalek hernia is seen. No suspicious hepatic lesion. Post small hypoattenuating lesions within the right hemiliver are consistent with cysts better visualized on prior MRI. Gallbladder is absent. There is no extrahepatic biliary dilatation. Mild prominence of the intrahepatic bile ducts is likely due to reservoir effect. The spleen is normal with scattered calcified granulomas. Pancreas and both adrenal glands are unremarkable. There is no hydronephrosis or nephrolithiasis. A few hypoattenuating lesions within the both kidneys which are too small to fully characterize however statistically likely represent cysts. The bladder is normal. Surgical clips are seen in the cervix. Otherwise the uterus is normal. Previously seen dilatation of the uterine cavity has resolved. There is a small hiatal hernia, otherwise the stomach is normal. There is no evidence of bowel obstruction. Unchanged 7 mm left para-aortic lymph node. 8 mm nodule in the left mesorectal fat (series 2 image 173) previously appeared as fat-containing lesion and could represent a sequela of fat necrosis in the setting of prior epiploic appendicitis. Otherwise no abdomen or pelvis enlarged lymph nodes. There is no free fluid or free air. Abdominal aorta is normal in caliber with scattered atherosclerotic calcifications. There is a suspicious osseous lesion. IMPRESSION: No imaging explanation for patient's symptoms. Electronically signed by: Ally Ramos M.D. Israel Beck MD IMG CT PROCEDURES Final Result * POCT creatinine (09/27/2024 1:52 PM COPRA PROCESSOR) Creatinine POC 0.9 0.6 - 1.1 mg/dL Blood 09/27/2024 1:52 PM COPRA PROCESSOR 09/27/2024 1:52 PM COPRA PROCESSOR Israel Beck MD LAB POCT ORDERABLES - DE VICE Final Result [facility] [place] [address] * Pap Only (Cytology Component) (08/21/2024 2:47 PM CDT) Pap test 08/21/2024 2:47 PM CDT 08/21/2024 4:24 PM CDT Narrative 08/23/2024 4:11 PM CDT EPIC results best viewed via link to PDF [facility] [place] [address] Note to Patients: This report may contain a detailed description of human tissue sent by a health care provider to the laboratory for pathologic evaluation. The content of this report is essential for diagnosis and may provide important critical findings. This information may be unfamiliar to patients to review without a medical professional present. It is advised that the patient review this report in the presence of a health care provider who can answer questions and explain the details. CYTOPATHOLOGY REPORT FINAL Patient Name: HANNAH GARCIAS Gender: Tameka : 1965 (Age: 58) Address: [address] [place] [id number] [facility] #: [id number] Service: Gynecology Location: Patient Type: [facility] SPECIMEN Taken: 08/21/2024 Received: 08/21/2024 Accessioned: 08/21/2024 Reported: 08/23/2024 Physician(s): Israel Beck M.D. FINAL INTERPRETATION SOURCE OF SPECIMEN Liquid based Thin Prep pap: STATEMENT OF ADEQUACY - Satisfactory for evaluation, vaginal smear GENERAL CATEGORIZATION: - Negative for squamous intraepithelial lesion or malignancy INTERPRETATION: - Atrophy and inflammation tcg/08/23/2024 16:11 RICH Wolfe (ASCP) Report Electronically Reviewed and Signed Out By RICH Wolfe (ASCP) 08/23/2024 16:11:36 Cervicovaginal Cytology (Pap Test) Disclaimer: The Pap test is a screening test used to detect cervical cancer and its precursors; it is not a diagnostic procedure. False negative and false positive results do occur. Pap test results should be interpreted in the context of pertinent clinical information and biopsy results as indicated. [facility] Clinical Laboratory Improvement Amendments (CLIA) mandate that cytologic and histologic results be correlated for laboratory software quality tester & improvement standards. FOR ALL HIGH-GRADE CASES we request submission of follow-up histological material and/or reports that have not been previously provided so that we may fulfill said required standards. Gross Description A. Liquid based Thin Prep pap: Vaginal - Screening ThinPrep Clinical Diagnosis and History Last Menstrual Period: PM Menstrual History: Post-menopausal The patient is a 58 year old female with hx of cervical cancer. Report Images and scanned documents, if included only viewable in PDF version The performance characteristics of some immunohistochemical stains, in-situ hybridization and fluorescence in-situ hybridization tests and immunophenotyping by flow cytometry cited in this report (if any) were determined by the Surgical Pathology Department at [facility] as part of an ongoing quality lead program and in compliance with federally mandated regulations drawn from the Clinical Laboratory Improvement Act of 1988 (CLIA '88). Some of these tests rely on the use of analyte specific reagents and are subject to specific labeling requirements by the US Food and Drug Administration. Such diagnostic tests may only be performed in a facility that is certified by the Department of Health and Human Services as a high complexity laboratory under CLIA '88. The FDA has determined that such clearance or approval is not necessary. This test is used for clinical purposes. It should not be regarded as investigational or for research. Nevertheless, federal rules concerning the medical use of analyte specific reagents require that the following disclaimer be attached to the report: This test was developed and its performance characteristics determined by the Surgical Pathology Department of [facility]. It has not been cleared or approved by the U. S. Food and Drug Administration. Israel Beck MD LAB CYTOLOGY ORDERABLES Final Result * COLONOSCOPY (08/26/2021 10:28 AM CDT) Anatomical Region Laterality Modality Other Narrative Procedure Note Jaziel Arce MD - 08/26/2021 10:28 AM CDT ENDOSCOPY LAB Patient Name: Hannah Garcias Procedure Date: 08/26/2021 10:28 AM Date of : 1965 Admit Type: Outpatient Age: 55 Gender: Female Attending MD: Jaziel Arce M.D. Room: [facility] ENDOSCOPY ROOM 02 Note Status: Finalized Procedure: Colonoscopy Indications: Last colonoscopy: date unknown (unable to locatelast colonoscopy report), Clinically significantdiarrhea of unexplained origin Providers: Jaziel Arce M.D. Referring MD: Self Referral Medicines: Monitored Anesthesia Care Complications: No immediate complications. Estimated Blood Loss: Estimated blood loss: none. Procedure: Pre-Anesthesia Assessment: - Immediately prior to administration ofmedications, the patient was re-assessed for adequacy to receive sedatives. The benefits, risks and alternatives of theprocedure and sedation were discussed and informed consentwas obtained. All questions were answered. Please referto the signed informed consent document in the medical record. The scope was passed under direct vision.The [id number] was introduced through the anusand advanced to the cecum, identified by appendiceal orifice and ileocecal valve. The colonoscopy was performed without difficulty. The patient tolerated the procedure well. The quality of the bowel preparation was evaluated using the BBPS (BostonBowel Preparation Scale) with scores of: Right Colon = 3, Transverse Colon = 3 and Left Colon = 3 (entiremucosa seen well with no residual staining, smallfragments of stool or opaque liquid). The total BBPS score equals 9. The bowel preparation used was SUPREP via split dose instruction. Findings: The perianal and digital rectal examinations were normal. The colon (entire examined portion) appeared normal. Random biopsied were taken to r/o microscopic colitis. Impression: - The entire examined colon is normal. - No specimens collected. Recommendation: - Await pathology results. - Repeat colonoscopy in 10 years forsurveillance. Jaziel Arce MD Jaziel Arce M.D. 08/26/2021 11:06:47 AM Number of Addenda: 0 Note Initiated On: 08/26/2021 10:28 AM us Jaziel Arce MD ENDOSCOPY PROCEDURES Fi nal Result from Last 3 Months or Most Recently Relevant to Health Maintenance Insurance [facility] Member Subscriber Plan / Payer ( fective 2018-Present) Name:Hannah Garcias Relation to Subscriber:Self Name:Hannah Garcias Payer ID:[id number] (NAIC) Group ID:Not on file Type:[employer] Address: [place] [id number] [facility] CLAIM[facility] Advance Directives For more information, please contact: [phone] * Full Code (Latest Code Status on File) Date Activated Date Inactivated Comments 08/26/2021 9:44 AM 08/26/2021 3:53 PM Care Teams Heel Cover Softener Relationship Specialty Start Date End Date Keshia Parker MD [address] [place] [address] PCP - General 03/30/17
--- OUTSIDE RECORDS SUMMARY | 2024-12-17 12:53 | XMS_ITS ---
Author Organization [facility] al Address [address] [place] [address] Care Team Providers Care Pathology Lab Technician Name Role Phone Keshia Parker MD Primary Care Provider [phone] Active Problems Problem Noted Date Diagnosed Date Symptoms of urinary tract infection 09/06/2024 Screening for malignant neoplasm 07/29/2021 Overview (07/29/2021): Added automatically from request for surgery [id number] Pelvic pain 03/31/2021 Malignant neoplasm of exocervix (CMS/HCC) 2020 Cancer Staging:Clinical:FIGO Stage IIB(cT2b, cM0) - Signed by Israel Beck MD on 02/25/2021 Thickened endometrium 02/25/2021 Overview (02/25/2021): Added automatically from request for surgery [id number] Swelling of ankle, right 06/11/2018 Pain and [...] 08/30/2012 Depression 05/19/2011 Carpal tunnel syndrome 01/07/2011 Current Treatment and Therapy Plans No current plan information found. Past Treatment and Therapy Plans No past plan information found. Lifetime Dose Tracking * Chemical Lifetime Dose Automatic Entry Manual Entr y DLP 1,638 mGycm 1,638 mGycm 0 mGycm
--- OUTSIDE RECORDS SUMMARY | 2024-12-17 12:53 | XMS_ITS | Clinical Summary ---
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:Clinical:FIGO Stage IIB(cT2b, cM0) - Signed by Israel Beck MD on 02/25/2021 Thickened endometrium 02/25/2021 Overview (02/25/2021): Added automatically from request for surgery [id number] Swelling of ankle, right 06/11/2018 Pain and [...] 08/30/2012 Depression 05/19/2011 Carpal tunnel syndrome 01/07/2011 Encounters Date Type Department Care Team Description 09/27/2024 1:34 PM COUNTERSINKER - 09/27/2024 11:59 PM COUNTERSINKER Hospital Encounter [facility] [address] [place] [id number] Israel Beck MD Pain, abdominal; Abdominal pressure; Flank pain Discharge Disposition: Discharge to home or self care from Last 3 Months Immunizations Immunization Administration Dates Next Due Influenza, Quadrivalent, Split, Intramuscular Influenza, Quadrivalent, Spl it, Preservative Free, Intramuscular 07/13/2018,07/12/2018 Influenza, Trivalent, IM (MDV) 09/10/2012 Pneumococcal Conjugate PCV 13 07/13/2016 Tdap 09/10/2012 Surgical History Surgery Date Site/Laterality Comments INGUINAL HERNIA REPAIR 10/23/2012 - 10/22/[address] Phelan SINUS SURGERY 10/23/2015 - 10/22/2016 UPPER GASTROINTESTINAL ENDOSCOPY 01/22/2020 - 02/20/2020 DENTAL SURGERY 02/20/2021 - 03/22/2021 cap on front 6 teeth COLONOSCOPY TONSILLECTOMY CARPAL TUNNEL RELEASE Bilateral revision L 2010 DILATION AND CURETTAGE, DIAGNOSTIC / THERAPEUTIC 03/16/2021 Medical History Medical History Date Comments Cervical cancer (CMS/HCC) (HCC) 2011 s/p chemoradition PONV (postoperative nausea and vomiting) Family History Medical History Relation Name Comments Heart disease Father Family history of cardiac disorder Relation Name Status Comments Father Social History Tobacco Use Types Packs/Day Years [...] money to buy more. Never true 04/01/20 21 Within the past 12 months, t he [...] on file Legal Sex Female 2:58 AM COUNTERSINKER Gender Identity Not on file Sexual Orientation Not on file Occupation Industry Job Start Date Job End Date Not on file Not on file Not on file Not on file Obstetrics History Para Term AB IAB SAB Ectopic Multiple Livin g Live Births 4 4 4 0 4 4 Date Outcome GA Total Labor Labor/2nd/3rd Weight Sex Type Anes PTL Estee A1 A5 Name Clin Term Term Term Term Last Filed Vital Signs Vital Sign Reading [...] 08/09/2023 2:14 PM CDT Plan of Treatment Health Maintenance Due Date Last Done Comments Breast Cancer Screening-Mammogram 1965 Depression Screening 1965 Hepatitis C Screening 1965 Hepatitis B Screening 1983 Regular Well Visit/Exam 18-64 1983 Zoster Vaccine (1 of 2) 2015 DTaP/Tdap/Td Vaccine (2 - Td or Tdap) 09/10/2022 09/10/2012 Influenza Vaccine (#1) 2024 8, 07/12/2018, 12/15/2015, Additional history exists Cervical Cancer Screening 08/21/20252023, 08/09/2023, 07/28/2022, Additional history exists Colon Cancer Screening-Colonoscopy 08/26/2031 08/26/2021 Pneumococcal vaccine <65 Aged Out 07/13/2016 No longer eligible based on patient's age to complete this topic Colon Cancer Screening-CT Colonography Discontinued 08/26/2021 Colon Cancer Screening-DNA Stool Discontinued 08/26/2021 Colon Cancer Screening-FIT Discontinued 08/26/2021 Colon Cancer Screening-Sigmoidoscopy Discontinued 08/26/2021 Procedures Procedure Name Priority Date/Time Associated Diagnosis Comments CT ABDOMEN PELVIS W CONTRAST Routine 09/27/2024 2:34 PM COUNTERSINKER Pain, abdominal Abdominal pressure Flank pain POCT CREATININE - DEVICE Routine 09/27/2024 1:52 PM COUNTERSINKER PAP ONLY Routine 08/21/2024 2:47 PM CDT COLONOSCOPY 08/26/2021 10:28 AM CDT from Last 3 Months or Most Recently Relevant to Health Maintenance Results * CT Abdomen Pelvis W Contrast (09/27/2024 2:34 PM COUNTERSINKER) Anatomical Region Laterality Modality Body N/A Computed Tomogra phy 09/27/2024 2:57 PM COUNTERSINKER Impressions 09/27/2024 2:57 PM COUNTERSINKER No imaging explanation for patient's symptoms. Electronically signed by: Ally Ramos M.D. Narrative 09/27/2024 2:57 PM COUNTERSINKER EXAMINATION: Computed tomography of the abdomen and [...] Result * POCT creatinine (09/27/2024 1:52 PM COUNTERSINKER) Creatinine POC 0.9 0.6 - 1.1 mg/dL Blood 09/27/2024 1:52 PM COUNTERSINKER 09/27/2024 1:52 PM COUNTERSINKER Israel Beck MD LAB POCT ORDERABLES - DE VICE Final Result Performing Organization Address City/State/[facility] Co de Phone Number [facility] [place] Department [place] [address] * Pap Only (Cytology Component) (08/21/2024 2:47 PM CDT) Pap test 08/21/2024 2:47 PM CDT 08/21/2024 4:24 PM CDT Narrative 08/23/2024 4:11 PM CDT EPIC results best viewed via link to PDF [facility] Jen Mendo[facility] [place] [address] Note to Patients: This report may contain [...] the details. CYTOPATHOLOGY REPORT FINAL Patient Name: CHERELLE GARCIAS Gender: Tameka : 1965 (Age: 58) Address: [address] [place] [id number] Hospital #: [id number] Service: Gynecology Location: Patient Type: [facility] SPECIMEN Taken: 08/21/2024 Received: 08/21/2024 Accessioned: 08/21/2024 [...] clinical information and biopsy results as indicated. [facility] Clinical Laboratory Improvement Amendments (CLIA) mandate that cytologic and histologic results be correlated for laboratory head of quality & improvement standards. FOR ALL HIGH-GRADE CASES [...] determined by the Surgical Pathology Department at [facility] as part of an ongoing design quality engineer program and in compliance with federally mandated [...] determined by the Surgical Pathology Department of [facility]. It has not been cleared or approved by the U. S. Food and Drug Administration. Israel Beck MD LAB CYTOLOGY ORDERABLES Final Result * COLONOSCOPY (08/26/2021 10:28 AM CDT) Anatomical Region Laterality Modality Other Narrative Procedure Note Jaziel Arce MD - 08/26/2021 10:28 AM CDT ENDOSCOPY LAB Patient Name: Cherelle Garcias Procedure Date: 08/26/2021 10:28 AM Date of : 1965 Admit Type: Outpatient Age: 55 Gender: Female Attending MD: Jaziel Arce M.D. Room: [facility] ENDOSCOPY ROOM 02 Note Status: Finalized Procedure: [...] The scope was passed under direct vision.The [id number] was introduced through the anusand advanced to [...] Most Recently Relevant to Health Maintenance Insurance [facility] CLAIMS [facility] CLAIMS [facility] CLAIMS Advance Directives For more information, please contact: [phone] * Full Code (Latest Code Status on File) Date Activated Date Inactivated Comments 08/26/2021 9:44 AM 08/26/2021 3:53 PM Care Teams Observatory Director Relationship Specialty Start Date End Date Keshia Parker MD [address] [place] [address] PCP - General 03/30/17
--- OUTSIDE RECORDS SUMMARY | 2024-12-17 12:53 | XMS_ITS | Clinical Summary ---
Author Organization [facility] Address [address] [address] Phone Care Team Providers Care Binder Layer Name Role Phone Unavailable Primary Care Provider Unavailabl e Medications polyethylene glycol (MIRALAX) Powder Use entire 255g bottle with 64oz of clear liquid as directed for colonoscopy prep. 255 g 0 6 Active Social History Tobacco Use Types Packs/Day Years Used Date Smoking Tobacco: Never Assessed Comments Unknown Sex and Gender Information Value Date Recorded Sex Assigned at Not on file Legal Sex Female 7:46 PM CDT Gender Identity Not on file Sexual Orientation Not on file Plan of Treatment Health Maintenance Due Date Last Done Comments Hepatitis C Virus (HCV) Screening 1965 TdaP Immunization 1965 Hepatitis B Immunization (1 of 3 - 19+ 3-dose series) 1984 Pap Smear 1986 Cervical Cancer Screening (CCS) 1995 HPV/Cotest 1995 Colonoscopy 2010 Colorectal Cancer Screening 2010 Cologuard 2015 Immunochemical Fecal Occult Blood 2015 Mammogram 2015 Pneumococcal Immunization (5 0+ years) (1 of 1 - PCV) 2015 Zoster Immunization (1 of 2) 2015 Influenza Immunization (#1) 2024 SARS-COV-2 Immunization ( - 2023- season) 2024 Respiratory Syncytial Virus (RSV) Immunization (Adult) (1 - 1-dose 75+ series) 2040 Meningococcal Immunization (ACWY) Aged Out No longer eligible based on patient's age to complete this topic Pneumococcal Immunization Combined Aged Out No longer eligible based on patient's age to complete this topic Rotavirus Immunization Aged Out No lo nger eligible based on patient's age to complete this topic
--- OUTSIDE RECORDS SUMMARY | 2024-12-17 12:53 | XMS_ITS | Encounter Summary ---
Author Organization [facility] Address [address] [place] [address] Phone Care Team Providers Care Store Manager Name Role Phone Keshia Parker MD Primary Care Provider [phone] Keshia Parker MD Unavailable [phone] Encounter Details Date Type Department Care Team (Late st Contact Info) Description 02/15/2018 Orders Only [facility] ProviderJosé MD [address] [place] [address] Social History Tobacco Use Types Packs/Day Years Used Date Smoking Tobacco: Never Comments Unknown Sex and Gender Information Value Date Recorded Sex Assigned at Not on file Legal Sex Female 2:58 AM HYDROELECTRIC PLANT TECHNICIAN Gender Identity Not on file Sexual Orientation Not on file documented as of this encounter Plan of Treatment Not on file documented as of this encounter Procedures Procedure Name Priority Date/Time Associated Diagnosis Comments DISCHARGE LABORATORY CUMULATIVE REPORT 02/15/2018 12:00 AM CDT documented in this encounter Results * DISCHARGE LABORATORY CUMULATIVE REPORT (02/15/2018 12:00 AM CDT) Narrative 02/15/2018 12:00 AM CDT Ordered by an unspecified provider. Historical Provider LAB BLOOD ORDERABLES Fior l Result documented in this encounter Visit Diagnoses Not on filedocumented in this encounter Care Teams Store Manager Relationship Specialty Start Date End Date Keshia Parker MD [address] [place] [address] PCP - General 03/30/17 Kehsia Parker MD [address] [place] [address] Referring Physician Internal Medicine 02/25/21 04/19/21 documented as of this encounter
--- OUTSIDE RECORDS SUMMARY | 2024-12-17 13:39 | XMS_ITS | Clinical Summary ---
Author Organization [facility] al Address [address] [place] [address] Care Team Providers Care Youth Associate Name Role Phone Keshia Parker MD Primary Care Provider [phone] Allergies No known active allergies Medications acetaminophen [...] (07/29/2021): Added automatically from request for surgery [id number] Pelvic pain 03/31/2021 Malignant neoplasm of exocervix (CMS/HCC) 2020 Cancer Staging:Clinical:FIGO Stage IIB(cT2b, cM0) - Signed by Israel Beck MD on 02/25/2021 Thickened endometrium 02/25/2021 Overview (02/25/2021): Added automatically from request for surgery [id number] Swelling of ankle, right 06/11/2018 Pain and [...] Department Care Team Description 09/27/2024 1:34 PM DEWATERER OPERATOR - 09/27/2024 11:59 PM DEWATERER OPERATOR Hospital Encounter [facility]) [address] [place] [address] Israel Beck MD Pain, abdominal; Abdominal pressure; [...] on file Legal Sex Female 2:58 AM DEWATERER OPERATOR Gender Identity Not on file Sexual Orientation [...] PELVIS W CONTRAST Routine 09/27/2024 2:34 PM DEWATERER OPERATOR Pain, abdominal Abdominal pressure Flank pain POCT CREATININE - DEVICE Routine 09/27/2024 1:52 PM DEWATERER OPERATOR PAP ONLY Routine 08/21/2024 2:47 PM CDT COLONOSCOPY 08/26/2021 10:28 AM CDT from Last 3 Months or Most Recently Relevant to Health Maintenance Results * CT Abdomen Pelvis W Contrast (09/27/2024 2:34 PM DEWATERER OPERATOR) Anatomical Region Laterality Modality Body N/A Computed Tomogra phy 09/27/2024 2:57 PM DEWATERER OPERATOR Impressions 09/27/2024 2:57 PM DEWATERER OPERATOR No imaging explanation for patient's symptoms. Electronically signed by: Ally Ramos M.D. Narrative 09/27/2024 2:57 PM DEWATERER OPERATOR EXAMINATION: Computed tomography of the abdomen and [...] Result * POCT creatinine (09/27/2024 1:52 PM DEWATERER OPERATOR) Creatinine POC 0.9 0.6 - 1.1 mg/dL Blood 09/27/2024 1:52 PM DEWATERER OPERATOR 09/27/2024 1:52 PM DEWATERER OPERATOR Israel Beck MD LAB POCT ORDERABLES - DE VICE Final Result Performing Organization Address City/State/[facility] Co de Phone Number [facility] Department [place] [address] * Pap Only (Cytology Component) (08/21/2024 2:47 PM CDT) Pap test 08/21/2024 2:47 PM CDT 08/21/2024 4:24 PM CDT Narrative 08/23/2024 4:11 PM CDT EPIC results best viewed via link to PDF [facility] Jen Mendoza Laboratory [place] [address] Note to Patients: This report may contain [...] Gender: Tameka : 1965 (Age: 58) Address: [address] [place] [address] Hospital #: [id number] Service: Gynecology Location: Patient Type: [facility] SPECIMEN Taken: 08/21/2024 Received: 08/21/2024 [...] clinical information and biopsy results as indicated. [facility] Clinical Laboratory Improvement Amendments (CLIA) mandate that cytologic and histologic results be correlated for laboratory quality systems specialist & improvement standards. FOR ALL HIGH-GRADE CASES [...] determined by the Surgical Pathology Department at [facility] as part of an ongoing quality control checker program and in compliance with federally mandated [...] determined by the Surgical Pathology Department of [facility]. It has not been cleared or approved [...] Female Attending MD: Jaziel Arce M.D. Room: [facility] ENDOSCOPY ROOM 02 Note Status: Finalized Procedure: [...] The scope was passed under direct vision.The [id number] was introduced through the anusand advanced to [...] Most Recently Relevant to Health Maintenance Insurance [facility] CLAIMS [facility] CLAIMS [facility] CLAIM[facility] Advance Directives For more information, please contact: [phone] * Full Code (Latest Code Status on File) Date Activated Date Inactivated Comments 08/26/2021 9:44 AM 08/26/2021 3:53 PM Care Teams Youth Associate Relationship Specialty Start Date End Date Keshia Parker MD [address] [place] [address] PCP - General 03/30/17
--- OUTSIDE RECORDS SUMMARY | 2024-12-17 13:39 | XMS_ITS ---
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
--- OUTSIDE RECORDS SUMMARY | 2024-12-17 13:39 | XMS_ITS | Encounter Summary ---
Author Organization [facility] Address [address] [place] [address] Phone Care Team Providers Care Crabber Name Role Phone Keshia Parker MD Primary Care Provider [phone] Keshia Parker MD Unavailable [phone] Encounter Details Date Type Department Care Team (Late st Contact Info) Description 02/15/2018 Orders Only [facility] ProviderJosé MD [address] [place] [address] Social History Tobacco Use Types Packs/Day Years Used Date Smoking Tobacco: Never Comments Unknown Sex and Gender Information Value Date Recorded Sex Assigned at Not on file Legal Sex Female 2:58 AM OPERATING ROOM REGISTERED NURSE Gender Identity Not on file Sexual Orientation [...] on filedocumented in this encounter Care Teams Crabber Relationship Specialty Start Date End Date Keshia Parker MD [address] [place] [address] PCP - General 03/30/17 Keshia Parker MD [address] [place] [address] Referring Physician Internal Medicine 02/25/21 04/19/21 documented as of this encounter
--- OUTSIDE RECORDS SUMMARY | 2024-12-17 13:39 | XMS_ITS | Referral Summary ---
Author Organization [facility] al Address [address] [place] [address] Care Team Providers Care Vamp Cut Out Worker Name Role Phone Keshia Parker MD Primary Care Provider [phone] Encounters Date Type Department Care Team Description 09/27/2024 1:34 PM DIESEL ENGINE I PIPE FITTER - 09/27/2024 11:59 PM DIESEL ENGINE I PIPE FITTER Hospital Encounter [facility]) [address] [place] [address] Israel Beck MD Pain, abdominal; Abdominal pressure; [...] (07/29/2021): Added automatically from request for surgery [id number] Pelvic pain 03/31/2021 Malignant neoplasm of exocervix (CMS/HCC) 2020 Cancer Staging:Clinical:FIGO Stage IIB(cT2b, cM0) - Signed by Israel Beck MD on 02/25/2021 Thickened endometrium 02/25/2021 Overview (02/25/2021): Added automatically from request for surgery [id number] Swelling of ankle, right 06/11/2018 Pain and [...] on file Legal Sex Female 2:58 AM DIESEL ENGINE I PIPE FITTER Gender Identity Not on file Sexual Orientation [...] PELVIS W CONTRAST Routine 09/27/2024 2:34 PM DIESEL ENGINE I PIPE FITTER Pain, abdominal Abdominal pressure Flank pain POCT CREATININE - DEVICE Routine 09/27/2024 1:52 PM DIESEL ENGINE I PIPE FITTER PAP ONLY Routine 08/21/2024 2:47 PM CDT COLONOSCOPY 08/26/2021 10:28 AM CDT from Last 3 Months or Most Recently Relevant to Health Maintenance Results * CT Abdomen Pelvis W Contrast (09/27/2024 2:34 PM DIESEL ENGINE I PIPE FITTER) Anatomical Region Laterality Modality Body N/A Computed Tomogra phy 09/27/2024 2:57 PM DIESEL ENGINE I PIPE FITTER Impressions 09/27/2024 2:57 PM DIESEL ENGINE I PIPE FITTER No imaging explanation for patient's symptoms. Electronically signed by: Ally Ramos M.D. Narrative 09/27/2024 2:57 PM DIESEL ENGINE I PIPE FITTER EXAMINATION: Computed tomography of the abdomen and [...] Result * POCT creatinine (09/27/2024 1:52 PM DIESEL ENGINE I PIPE FITTER) Creatinine POC 0.9 0.6 - 1.1 mg/dL Blood 09/27/2024 1:52 PM DIESEL ENGINE I PIPE FITTER 09/27/2024 1:52 PM DIESEL ENGINE I PIPE FITTER Israel Beck MD LAB POCT ORDERABLES - DE VICE Final Result [facility] Department [place] [address] * Pap Only (Cytology Component) (08/21/2024 2:47 PM CDT) Pap test 08/21/2024 2:47 PM CDT 08/21/2024 4:24 PM CDT Narrative 08/23/2024 4:11 PM CDT EPIC results best viewed via link to PDF [facility] Jen Mendoza Laboratory [place] [address] Note to Patients: This report may contain [...] Gender: Tameka : 1965 (Age: 58) Address: [address] [place] [address] [facility] #: [id number] Service: Gynecology Location: Patient Type: [facility] SPECIMEN Taken: 08/21/2024 Received: 08/21/2024 Accessioned: 08/21/2024 [...] clinical information and biopsy results as indicated. [facility] Clinical Laboratory Improvement Amendments (CLIA) mandate that cytologic and histologic results be correlated for laboratory software quality automation engineer & improvement standards. FOR ALL HIGH-GRADE CASES [...] determined by the Surgical Pathology Department at [facility] as part of an ongoing quality control coordinator program and in compliance with federally mandated [...] determined by the Surgical Pathology Department of [facility]. It has not been cleared or [...] Female Attending MD: Jaziel Arce M.D. Room: [facility] ENDOSCOPY ROOM 02 Note Status: [...] The scope was passed under direct vision.The [id number] was introduced through the anusand advanced to [...] Most Recently Relevant to Health Maintenance Insurance [facility] CLAIMS Member Subscriber Plan / Payer (Ef fective 2021-Present) Name:Hannah Garcias Relation to Subscriber:Spouse Name:JUANCARLOS GARCIAS JR Date of :1965 (Home) (Work) Address: [address] [place], [place] [id number] Payer ID:[id number] (NAIC) Group ID:Not on file Type:[employer] Address: [place] [address] [facility] CLAIMS Member Subscriber Plan / Payer ( fective 2018-Present) Name:Hannah Garcias Relation to Subscriber:Self Name:Hannah Garcias Payer ID:[id number] (NAIC) Group ID:Not on file Type:[employer] Address: [place] [phone] [facility] CLAIMS Advance Directives For more information, please contact: [phone] * Full Code (Latest Code Status on File) Date Activated Date Inactivated Comments 08/26/2021 9:44 AM 08/26/2021 3:53 PM Care Teams Vamp Cut Out Worker Relationship Specialty Start Date End Date Keshia Parker MD [address] [place] [address] PCP - General 03/30/17
--- OUTSIDE RECORDS SUMMARY | 2024-12-17 13:39 | XMS_ITS | Clinical Summary ---
Author Organization [facility] Address [address] [address] Phone Care Team Providers Care Management Developer Name Role Phone Unavailable Primary Care Provider [...]
== END 2024-12-17 12:11 | disposition home or self-care (01) ==
PROVIDERS: Emergency Provider Emergency Medicine; PCP Internal Medicine
DX: J10.1 Influenza due to other identified influenza virus with other respiratory manifestations (principal); E78.5 Hyperlipidemia, unspecified; Z85.41 Personal history of malignant neoplasm of cervix uteri; Z20.822 Contact with and (suspected) exposure to COVID-19
CPT/HCPCS: 71045; 87637; 99283

== ENCOUNTER 2024-12-19 15:39 | Outpatient (CLI) | payer OTHER, SELFPAY ==
[2024-12-19 16:08] LABS: Hematocrit 43.3 % (35.0-49.0); Hemoglobin 14.5 g/dL (12.0-15.0); Mean Corpuscular HGB Conc 33.5 g/dL (32-36); Mean Corpuscular Hemoglobin 28.9 pg (27.0-31.0); Mean Corpuscular Volume 86.3 fL (78.0-102.0); Mean Platelet Volume 10.2 fl (9.2-11.8); Platelet Count Result 200 K/mm3 (150-420); Red Blood Count 5.02 M/mm3 (4.20-5.40); Red Cell Distribution Width 12.4 % (11.6-14.4)
[2024-12-19 16:25] LABS: Alanine Aminotransferase 53 U/L (14-59); Albumin Level 3.8 g/dL (3.4-5.0); Alkaline Phosphatase 90 U/L (46-116); Anion Gap 12 mmol/L (4-12); Aspartate Amino Transferase 43 U/L (15-37); Bilirubin,Total 0.2 mg/dL (0.00-1.00); Blood Urea Nitrogen 14 mg/dL (7-18); Calcium 8.8 mg/dL (8.5-10.1); Carbon Dioxide 27 mmol/L (21-32); Chloride 106 mmol/L (98-108); Estimated Glomerular Filt Rate 60; Glucose 118 mg/dL (70-99); Osmolality Calculated 301 mOsm/kg (285-295); Potassium 3.5 mmol/L (3.5-5.1); Sodium 145 mmol/L (136-145); Total Protein 6.8 g/dL (6.4-8.2)
[2024-12-19 17:05] LABS: Band Neutrophils Percent 1 % (0-6); Lymphocytes Percent Manual 70 % (18-44); Neutrophils Absolute Manual 0.48 K/mm3 (1.7-7.2); Neutrophils Percent Manual 23 % (46-73); Total Cells Counted 100
[2024-12-19 17:06] LABS: Basophils Percent Manual 0 % (0-1); Eosinophils Percent Manual 0 % (1-6); Monocytes Absolute Manual 0.12 K/mm3 (0.1-0.90); Monocytes Percent Manual 6 % (3-9); Platelet Estimate Adequate (Adequate)
== END 2024-12-19 15:40 | disposition home or self-care (01) ==
PROVIDERS: PCP Internal Medicine; Visit Provider Internal Medicine
DX: R05.9 Cough, unspecified (principal); R19.7 Diarrhea, unspecified
CPT/HCPCS: 36415; 80053; 85025

== ENCOUNTER 2024-12-26 10:53 | Outpatient (CLI) | payer OTHER, SELFPAY ==
--- NOTE | ~2024-12-26 | XR_ITS ---
EXAMINATION: XR chest 2V DATE: 12/26/2024 11:29 INDICATION: Shortness of breath, cough and wheezing TECHNIQUE: PA and lateral views of the chest were obtained. COMPARISON: Chest radiograph dated 12/17/2024 FINDINGS: The lungs remain clear with no focal airspace opacities, pulmonary edema, pleural effusion or pneumot horax. Calcified right hilar lymph nodes consistent with old granulomatous disease. Heart size is nor mal. Mild thoracic spondylosis. Cholecystectomy clips in right upper quadrant. IMPRESSION: 1. No acute cardiopulmonary disease. Reviewed, dictated and finalized at location L. A LOGIST
[2024-12-26 11:07] LABS: Basophils Absolute Auto 0.03 K/mm3 (0.00-0.10); Basophils Percent Auto 0.5 % (0.0-1.0); Eosinophils Absolute Auto 0.14 K/mm3 (0.02-0.50); Eosinophils Percent Auto 2.2 % (1.0-6.0); Hematocrit 43.7 % (35.0-49.0); Hemoglobin 14.2 g/dL (12.0-15.0); Immature Granulocyte Absolute 0.09 K/mm3 (0.00-0.00); Immature Granulocyte Percent A 1.4 % (0.0-0.0); Lymphocytes Absolute Auto 1.33 K/mm3 (1.10-4.50); Mean Corpuscular HGB Conc 32.5 g/dL (32-36); Mean Corpuscular Hemoglobin 28.6 pg (27.0-31.0); Mean Corpuscular Volume 88.1 fL (78.0-102.0); Mean Platelet Volume 9.2 fl (9.2-11.8); Monocytes Absolute Auto 0.54 K/mm3 (0.10-0.90); Monocytes Percent Auto 8.5 % (2.0-11.0); Neutrophils Absolute Auto 4.19 K/mm3 (1.70-7.20); Neutrophils Percent Auto 66.4 % (50.0-70.0); Platelet Count Result 435 K/mm3 (150-420); Red Blood Count 4.96 M/mm3 (4.20-5.40); Red Cell Distribution Width 12.3 % (11.6-14.4); White Blood Count 6.3 K/mm3 (4.8-10.8)
[2024-12-26 11:34] LABS: Alanine Aminotransferase 44 U/L (14-59); Albumin Level 3.6 g/dL (3.4-5.0); Alkaline Phosphatase 82 U/L (46-116); Anion Gap 8 mmol/L (4-12); Aspartate Amino Transferase 10 U/L (15-37); Bilirubin,Total 0.5 mg/dL (0.00-1.00); Blood Urea Nitrogen 14 mg/dL (7-18); Carbon Dioxide 28 mmol/L (21-32); Chloride 107 mmol/L (98-108); Estimated Glomerular Filt Rate 59; Glucose 94 mg/dL (70-99); Osmolality Calculated 296 mOsm/kg (285-295); Potassium 4.1 mmol/L (3.5-5.1); Sodium 143 mmol/L (136-145)
[2024-12-26 11:44] LABS: RSV RNA, RT-PCR Negative (Negative)
--- OUTSIDE RECORDS SUMMARY | 2024-12-26 12:31 | XMS_ITS ---
Author Organization [facility] al Address [address] [place] [address] Care Team Providers Care Heat Engineering Teacher Name Role Phone Keshia Parker MD Primary Care Provider [phone] Active Problems Problem Noted Date Diagnosed Date Symptoms of urinary tract infection 09/06/2024 Screening for malignant neoplasm 07/29/2021 Overview (07/29/2021): Added automatically from request for surgery [id number] Pelvic pain 03/31/2021 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 Cancer Staging:Clinical:FIGO Stage IIB(cT2b, cM0) - Signed by Israel Beck MD on 02/25/2021 Thickened endometrium 02/25/2021 Overview (02/25/2021): Added automatically from request for surgery [id number] Swelling of ankle, right 06/11/2018 Pain and [...]
--- OUTSIDE RECORDS SUMMARY | 2024-12-26 12:31 | XMS_ITS | Clinical Summary ---
Author Organization [facility] Address [address] [address] Phone Care Team Providers Care Gun Mechanic Name Role Phone Unavailable Primary Care Provider [...]
--- OUTSIDE RECORDS SUMMARY | 2024-12-26 12:31 | XMS_ITS | Clinical Summary ---
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 Cancer Staging:Clinical:FIGO Stage IIB(cT2b, cM0) - Signed by Israel Beck MD on 02/25/2021 Thickened endometrium 02/25/2021 Overview (02/25/2021): Added automatically from request for surgery [id number] Swelling of ankle, right 06/11/2018 Pain and [...] Department Care Team Description 09/27/2024 1:34 PM PLATE AND WELD INSPECTOR - 09/27/2024 11:59 PM PLATE AND WELD INSPECTOR Hospital Encounter [facility] [address] [place] [address] Israel Beck MD Pain, abdominal; Abdominal pressure; [...] History Medical History Date Comments Cervical cancer (HCC) 2011 s/p chemor adition PONV (postoperative nausea and vomiting) Family History [...] on file Legal Sex Female 2:58 AM PLATE AND WELD INSPECTOR Gender Identity Not on file Sexual Orientation [...] PELVIS W CONTRAST Routine 09/27/2024 2:34 PM PLATE AND WELD INSPECTOR Pain, abdominal Abdominal pressure Flank pain POCT CREATININE - DEVICE Routine 09/27/2024 1:52 PM PLATE AND WELD INSPECTOR PAP ONLY Routine 08/21/2024 2:47 PM CDT COLONOSCOPY 08/26/2021 10:28 AM CDT from Last 3 Months or Most Recently Relevant to Health Maintenance Results * CT Abdomen Pelvis W Contrast (09/27/2024 2:34 PM PLATE AND WELD INSPECTOR) Anatomical Region Laterality Modality Body N/A Computed Tomogra phy 09/27/2024 2:57 PM PLATE AND WELD INSPECTOR Impressions 09/27/2024 2:57 PM PLATE AND WELD INSPECTOR No imaging explanation for patient's symptoms. Electronically signed by: Ally Ramos M.D. Narrative 09/27/2024 2:57 PM PLATE AND WELD INSPECTOR EXAMINATION: Computed tomography of the abdomen and [...] Result * POCT creatinine (09/27/2024 1:52 PM PLATE AND WELD INSPECTOR) Creatinine POC 0.9 0.6 - 1.1 mg/dL Blood 09/27/2024 1:52 PM PLATE AND WELD INSPECTOR 09/27/2024 1:52 PM PLATE AND WELD INSPECTOR Israel Beck MD LAB POCT ORDERABLES - DE VICE Final Result Performing Organization Address City/State/[facility] Co de Phone Number [facility] Department [place] [address] * Pap Only (Cytology Component) (08/21/2024 2:47 PM CDT) Pap test 08/21/2024 2:47 PM CDT 08/21/2024 4:24 PM CDT Narrative 08/23/2024 4:11 PM CDT EPIC results best viewed via link to PDF [facility] Jen Mendoza [facility] [place] [address] Note to Patients: This report may contain [...] REPORT FINAL Patient Name: CHERELLE GARCIAS Gender: F : 1965 (Age: 58) Address: [address] [place], [place] [address] [facility] #: [id number] Service: Gynecology Location: Patient Type: [facility] SPECIMEN Taken: 08/21/2024 Received: 08/21/2024 Accessioned: 08/21/2024 [...] clinical information and biopsy results as indicated. [facility] Clinical Laboratory Improvement Amendments (CLIA) mandate that cytologic and histologic results be correlated for laboratory research quality assurance analyst & improvement standards. FOR ALL HIGH-GRADE CASES [...] determined by the Surgical Pathology Department at [facility] as part of an ongoing quality control director program and in compliance with federally mandated [...] determined by the Surgical Pathology Department of [facility]. It has not been cleared or [...] Female Attending MD: Jaziel Arce M.D. Room: [facility] ENDOSCOPY ROOM 02 Note Status: [...] The scope was passed under direct vision.The [id number] was introduced through the anusand advanced to [...] Most Recently Relevant to Health Maintenance Insurance [facility] CLAIMS [facility] CLAIM[facility] Advance Directives For more information, please contact: [phone] * Full Code (Latest Code Status on File) Date Activated Date Inactivated Comments 08/26/2021 9:44 AM 08/26/2021 3:53 PM Care Teams Textile Designs Sales Representative Relationship Specialty Start Date End Date Keshia Parker MD [address] [place] [address] PCP - General 03/30/17
--- OUTSIDE RECORDS SUMMARY | 2024-12-26 12:31 | XMS_ITS | Encounter Summary ---
Author Organization [facility] Address [address] [place] [address] Phone Care Team Providers Care Pattern Clerk Name Role Phone Keshia Parker MD Primary Care Provider [phone] Keshia Parker MD Unavailable [phone] Encounter Details Date Type Department Care Team (Late st Contact Info) Description 02/15/2018 Orders Only [facility] ProviderJsoé MD [address] [place] [address] Social History Tobacco Use Types Packs/Day Years Used Date Smoking Tobacco: Never Comments Unknown Sex and Gender Information Value Date Recorded Sex Assigned at Not on file Legal Sex Female 2:58 AM RADIOGRAPHER TECHNOLOGIST Gender Identity Not on file Sexual Orientation [...] on filedocumented in this encounter Care Teams Pattern Clerk Relationship Specialty Start Date End Date Keshia Parker MD [address] [place] [address] PCP - General 03/30/17 Keshia Parker MD [address] [place] [address] Referring Physician Internal Medicine 02/25/21 04/19/21 documented as of this encounter
--- OUTSIDE RECORDS SUMMARY | 2024-12-26 12:31 | XMS_ITS | Referral Summary ---
Author Organization [facility] al Address [address] [place] [address] Care Team Providers Care Credit Report Checker Name Role Phone Keshia Parker MD Primary Care Provider [phone] Encounters Date Type Department Care Team Description 09/27/2024 1:34 PM RESPIRATORY TECH - 09/27/2024 11:59 PM RESPIRATORY TECH Hospital Encounter [facility]) [address] [place] [address] Israel Beck MD Pain, abdominal; Abdominal pressure; [...] (07/29/2021): Added automatically from request for surgery [id number] Pelvic pain 03/31/2021 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 Cancer Staging:Clinical:FIGO Stage IIB(cT2b, cM0) - Signed by Israel Beck MD on 02/25/2021 Thickened endometrium 02/25/2021 Overview (02/25/2021): Added automatically from request for surgery [id number] Swelling of ankle, right 06/11/2018 Pain and [...] on file Legal Sex Female 2:58 AM RESPIRATORY TECH Gender Identity Not on file Sexual Orientation [...] PELVIS W CONTRAST Routine 09/27/2024 2:34 PM RESPIRATORY TECH Pain, abdominal Abdominal pressure Flank pain POCT CREATININE - DEVICE Routine 09/27/2024 1:52 PM RESPIRATORY TECH PAP ONLY Routine 08/21/2024 2:47 PM CDT COLONOSCOPY 08/26/2021 10:28 AM CDT from Last 3 Months or Most Recently Relevant to Health Maintenance Results * CT Abdomen Pelvis W Contrast (09/27/2024 2:34 PM RESPIRATORY TECH) Anatomical Region Laterality Modality Body N/A Computed Tomogra phy 09/27/2024 2:57 PM RESPIRATORY TECH Impressions 09/27/2024 2:57 PM RESPIRATORY TECH No imaging explanation for patient's symptoms. Electronically signed by: Ally Ramos M.D. Narrative 09/27/2024 2:57 PM RESPIRATORY TECH EXAMINATION: Computed tomography of the abdomen and [...] Result * POCT creatinine (09/27/2024 1:52 PM RESPIRATORY TECH) Creatinine POC 0.9 0.6 - 1.1 mg/dL Blood 09/27/2024 1:52 PM RESPIRATORY TECH 09/27/2024 1:52 PM RESPIRATORY TECH Israel Beck MD LAB POCT ORDERABLES - DE VICE Final Result [facility] [place] [address] * Pap Only (Cytology Component) (08/21/2024 2:47 PM CDT) Pap test 08/21/2024 2:47 PM CDT 08/21/2024 4:24 PM CDT Narrative 08/23/2024 4:11 PM CDT EPIC results best viewed via link to PDF [facility] Jen Mendoza [facility] [place] [address] Note to Patients: This report may contain [...] REPORT FINAL Patient Name: HANNAH GARCIAS Gender: F : 1965 (Age: 58) Address: [address] [place] [address] Hospital #: [id number] Service: Gynecology Location: Patient Type: [facility] SPECIMEN Taken: 08/21/2024 Received: 08/21/2024 Accessioned: 08/21/2024 [...] clinical information and biopsy results as indicated. [facility] Clinical Laboratory Improvement Amendments (CLIA) mandate that cytologic and histologic results be correlated for laboratory rn clinical quality & improvement standards. FOR ALL HIGH-GRADE [...] determined by the Surgical Pathology Department at [facility] as part of an ongoing quality improvement analyst program and in compliance with federally mandated [...] determined by the Surgical Pathology Department of [facility]. It has not been cleared [...] Female Attending MD: Jaziel Arce M.D. Room: [facility] ENDOSCOPY ROOM 02 Note Status: Finalized [...] The scope was passed under direct vision.The [id number] was introduced through the anusand advanced to [...] Recently Relevant to Health Maintenance Insurance [facility] CLAIMS Member Subscriber Plan / Payer (Ef fective 2021-Present) Name:Hannah Garcias Relation to Subscriber:Spouse Name:JUANCARLOS GARCIAS JR Date of :1965 (Home) (Work) Address: [address] [place], [place] [address] Payer ID:[id number] (NAIC) Group ID:Not on file Type:[employer] Address: [place] [id number] [facility] CLAIMS Member Subscriber Plan / Payer ( fective 2018-Present) Name:Hannah Garcias Relation to Subscriber:Self Name:Hannah Garcias Payer ID:[id number] (NAIC) Group ID:Not on file Type:[employer] Address: [place] [id number] [facility] CLAIMS Advance Directives For more information, please contact: [phone] * Full Code (Latest Code Status on File) Date Activated Date Inactivated Comments 08/26/2021 9:44 AM 08/26/2021 3:53 PM Care Teams Credit Report Checker Relationship Specialty Start Date End Date Keshia Parker MD [address] [place] [address] PCP - General 03/30/17
== END 2024-12-26 10:54 | disposition home or self-care (01) ==
LOC: CHSLAB 10:54
PROVIDERS: PCP Internal Medicine; Visit Provider Internal Medicine
DX: R05.9 Cough, unspecified (principal); R06.2 Wheezing
CPT/HCPCS: 36415; 71046; 80053; 85025; 87634

== ENCOUNTER 2025-07-02 14:35 | Outpatient (CLI) | payer OTHER, SELFPAY ==
--- NOTE | ~2025-07-02 | XR_ITS ---
EXAMINATION: XR chest 2V 07/02/2025 15:06 INDICATION: Chest pain and nausea PROCEDURE: 2 view chest COMPARISON: Comparison to multiple prior studies sequentially, with oldest reviewed study dated 11/13/2022. FINDINGS: The lungs are clear. The cardiomediastinal silhouette is within normal limits. There are no pleural effusions. There is no pneumothorax suspected. IMPRESSION: 1: NO ACUTE CARDIOPULMONARY DISEASE. Reviewed, dictated and finalized at location O.
[2025-07-02 14:53] LABS: Hematocrit 41.1 % (35.0-49.0); Hemoglobin 13.5 g/dL (12.0-15.0); Immature Granulocyte Percent A 0.2 % (0.0-0.0); Lymphocytes Absolute Auto 1.23 K/mm3 (1.10-4.50); Mean Corpuscular HGB Conc 32.8 g/dL (32-36); Mean Corpuscular Hemoglobin 29.5 pg (27.0-31.0); Mean Corpuscular Volume 89.9 fL (78.0-102.0); Nucleated Red Blood Cells Absolute Auto 0.00 K/mm3 (0.00-0.00); Nucleated Red Blood Cells Perc 0.0 % (0-0.0); Platelet Count Result 252 K/mm3 (150-420); Red Blood Count 4.57 M/mm3 (4.20-5.40); White Blood Count 5.6 K/mm3 (4.8-10.8)
[2025-07-02 14:54] LABS: Add Urine Microscopic? NO; Appearance Urine Clear (Clear); Glucose Urine UA Negative (Negative); Leukocyte Esterase Ur Negative (Negative); Nitrate Urine Negative (Negative); Specific Grav Ur 1.020 (1.010-1.020)
[2025-07-02 15:08] LABS: Alanine Aminotransferase 27 U/L (6-35); Albumin Level 4.4 g/dL (3.5-5.1); Alkaline Phosphatase 56 U/L (38-126); Amylase 73 U/L (30-110); Anion Gap 7 mmol/L (4-12); Aspartate Amino Transferase 41 U/L (14-36); Bilirubin,Total 0.5 mg/dL (0.2-1.3); Blood Urea Nitrogen 9 mg/dL (7-17); CRP 2.8 mg/dL (<1.0); Calcium 9.4 mg/dL (8.4-10.2); Carbon Dioxide 31 mmol/L (22-30); Chloride 106 mmol/L (98-107); Estimated Glomerular Filt Rate > 60; Glucose 111 mg/dL (65-110); Lipase 74 U/L (23-300); Osmolality Calculated 297 mOsm/kg (285-295); Potassium 4.3 mmol/L (3.4-5.0); Sodium 144 mmol/L (137-145); Total Protein 7.1 g/dL (6.3-8.2)
--- OUTSIDE RECORDS SUMMARY | 2025-07-02 15:08 | XMS_ITS | Clinical Summary ---
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 Cancer Staging:Clinical:FIGO Stage IIB(cT2b, cM0) - Signed by Israel Beck MD on 02/25/2021 Thickened endometrium 02/25/2021 Overview (02/25/2021): Added automatically from request for surgery [id number] Swelling of ankle, right 06/11/2018 Pain and [...] on file Legal Sex Female 2:58 AM PRICE LISTER Gender Identity Not on file Sexual Orientation [...] 1:38 PM CDT Height 157.5 cm (5' 2) 08/09/2023 2:14 PM CDT Body Mass Index 30.18 08/09/2023 2:14 PM CDT Plan of Treatment Health Maintenance Due Date Last Done Comments Breast Cancer Screening-Mammogram 1965 Depression Screening 1965 Hepatitis C Screening 1965 Hepatitis B Screening 1983 Regular Well Visit/Exam 18-64 1983 Zoster Vaccine (1 of 2) 2015 DTaP/Tdap/Td Vaccine (2 - Td or Tdap) 09/10/2022 09/10/2012 Influenza Vaccine (#1) 2025 8, 07/12/2018, 12/15/2015, Additional history exists Cervical [...] Procedure Name Priority Date/Time Associated Diagnosis Comments PAP ONLY Routine 08/21/2024 2:47 PM CDT COLONOSCOPY 08/26/2021 10:28 AM CDT from Last 3 Months or Most Recently Relevant to Health Maintenance Results * Pap Only (Cytology Component) (08/21/2024 2:47 PM CDT) Pap test 08/21/2024 2:47 PM CDT 08/21/2024 4:24 PM CDT Narrative 08/23/2024 4:11 PM CDT EPIC results best viewed via link to PDF [facility] Jen Mendoza Laboratory [place] [address] Note to Patients: This report may contain [...] Gender: Tameka : 1965 (Age: 58) Address: [address] [place] [address] [facility] #: [id number] Service: Gynecology Location: Patient Type: [facility] SPECIMEN Taken: 08/21/2024 Received: 08/21/2024 [...] clinical information and biopsy results as indicated. [facility] Clinical Laboratory Improvement Amendments (CLIA) mandate that cytologic and histologic results be correlated for laboratory supplier quality manager & improvement standards. FOR ALL HIGH-GRADE CASES [...] by the Surgical Pathology Department at [facility] as part of an ongoing quality assurance manager program and in compliance with federally mandated [...] by the Surgical Pathology Department of [facility]. It has not been cleared or approved [...] Female Attending MD: Jaziel Arce M.D. Room: [facility] ENDOSCOPY ROOM 02 Note Status: Finalized [...] The scope was passed under direct vision.The [id number] was introduced through the anusand advanced to [...] 0 Note Initiated On: 08/26/2021 10:28 AM Jaziel Arce MD ENDOSCOPY PROCEDURES Fi nal Result from Last 3 Months or Most Recently Relevant to Health Maintenance Insurance [employer] CLAIMS * Guarantor: Cherelle Garcias Account Type Relation to Patient Date of Phone Billing Address Personal/Family Self 1965 [address] [place] [address] [employer] CLAIMS [facility] CLAIMS Advance Directives For more information, please contact: [phone] * Full Code (Latest Code Status on File) Date Activated Date Inactivated Comments 08/26/2021 9:44 AM 08/26/2021 3:53 PM Care Teams Manager Risk Management Relationship Specialty Start Date End Date Keshia Parker MD [address] [place] [address] PCP - General 03/30/17
--- OUTSIDE RECORDS SUMMARY | 2025-07-02 15:08 | XMS_ITS ---
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
--- OUTSIDE RECORDS SUMMARY | 2025-07-02 15:08 | XMS_ITS | Encounter Summary ---
Author Organization [facility] Address [address] [place] [address] Phone Care Team Providers Care Dining Room Cashier Name Role Phone Keshia Parker MD Primary Care Provider [phone] Keshia Parker MD Unavailable [phone] Encounter Details Date Type Department Care Team (Late st Contact Info) Description 02/15/2018 Orders Only [facility] ProviderJosé MD [address] [place] [address] Social History Tobacco Use Types Packs/Day Years Used Date Smoking Tobacco: Never Comments Unknown Sex and Gender Information Value Date Recorded Sex Assigned at Not on file Legal Sex Female 2:58 AM PODIATRIST Gender Identity Not on file Sexual Orientation [...] on filedocumented in this encounter Care Teams Dining Room Cashier Relationship Specialty Start Date End Date Keshia Parker MD [address] [place] [address] PCP - General 03/30/17 Keshia Parker MD [address] [place] [address] Referring Physician Internal Medicine 02/25/21 04/19/21 documented as of this encounter
--- OUTSIDE RECORDS SUMMARY | 2025-07-02 15:08 | XMS_ITS | Clinical Summary ---
Author Organization [facility] Address [address] [address] Phone Care Team Providers Care Upholstered Goods Crafter Name Role Phone Unavailable Primary Care Provider [...] Cervical Cancer Screening (CCS) 1995 HPV/Cotest 1995 Cologuard 2010 Colonoscopy 2010 Colorectal Cancer Screening 2010 Immunochemical Fecal Occult Blood 2010 Pneumococcal Immunization (5 0+ years) (1 of 1 - PCV) 2015 Zoster Immunization (1 of 2) 2015 SARS-COV-2 Immunization ( - 2023- season) 2024 Influenza Immunization (#1) 2025 Respiratory Syncytial Virus (RSV) Immunization (Adult) (1 - 1-dose 75+ series) 2040 Human Papillomavirus (HPV) Immunization Aged Out No longer eligible b ased on patient's age to complete this topic Meningococcal Immunization (ACWY) Aged Out No longer eligible based on patient's age to complete this topic Rotavirus Immunization Aged Out No lo nger eligible based on patient's age to complete this topic
== END 2025-07-02 14:36 | disposition home or self-care (01) ==
PROVIDERS: PCP Internal Medicine; Visit Provider Internal Medicine
DX: R10.9 Unspecified abdominal pain (principal); M54.50 Low back pain, unspecified; R07.9 Chest pain, unspecified
CPT/HCPCS: 36415; 71046; 80053; 81003; 82150; 83605; 83690; 85025; 85652; 86140; 87086

== ENCOUNTER 2025-07-02 15:52 | Outpatient (CLI) | payer OTHER, SELFPAY ==
--- NOTE | ~2025-07-02 | CT_ITS ---
EXAMINATION: CT abdomen pelvis w con DATE: 07/02/2025 16:44 INDICATION: Left upper quadrant pain TECHNIQUE: Computed tomography (CT) of the abdomen and pelvis was performed with 100 cc Omnipaque 350 intravenous contrast. The dose-length product was 505.12 mGy-cm. Automated exposure control and iterative reconstruction technique were employed. COMPARISON: CT dated 10/26/2023. FINDINGS: Lung bases are unremarkable. Heart size normal. No significant pleural or pericardial effusion. Status post cholecystectomy. There is mild focal thickening of the proximal descending colon with surrounding fluid, suspicious for acute diverticulitis. The liver, spleen, pancreas, adrenal glands and right kidney are unremarkable. Small subcentimeter hypodensities of the left kidney, most likely benign. No significant hydronephrosis. Status post hysterectomy. Bladder is decompressed. No significant vascular abnormality. No lymphadenopathy. There is mild multilevel facet hypertrophy with grade 1 degenerative spondylolisthesis at L4-5. IMPRESSION: 1. Mild subtle thickening of the proximal descending colon with small amount of surrounding fluid, suspicious for acute diverticulitis. No evidence for perforation or abscess. Reviewed, dictated and finalized at location O. IMPRESSION: 1. Mild subtle thickening of the proximal descending colon with small amount of surrounding fluid, suspicious for acute diverticulitis. No evidence for perfor ation or abscess.
--- OUTSIDE RECORDS SUMMARY | 2025-07-02 16:02 | XMS_ITS | Clinical Summary ---
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 Cancer Staging:Clinical:FIGO Stage IIB(cT2b, cM0) - Signed by Israel Beck MD on 02/25/2021 Thickened endometrium 02/25/2021 Overview (02/25/2021): Added automatically from request for surgery [id number] Swelling of ankle, right 06/11/2018 Pain and [...] on file Legal Sex Female 2:58 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 SPECIMEN Taken: 08/21/2024 Received: 08/21/2024 [...] clinical information and biopsy results as indicated. [facility] Clinical Laboratory Improvement Amendments (CLIA) mandate that [...] determined by the Surgical Pathology Department at [facility] as part of an ongoing quality assurance supervisor final program and in compliance with federally mandated [...] determined by the Surgical Pathology Department of [facility]. It has not been cleared or approved [...] Female Attending MD: Jaziel Arce M.D. Room: [facility] ENDOSCOPY ROOM 02 Note Status: Finalized [...] The scope was passed under direct vision.The [id number] was introduced through the anusand advanced to [...] Most Recently Relevant to Health Maintenance Insurance [email or web address] CLAIMS [email or web address] CLAIMS [facility] CLAIM[facility] Advance Directives For more information, please contact: [phone] * Full Code (Latest Code Status on File) Date Activated Date Inactivated Comments 08/26/2021 9:44 AM 08/26/2021 3:53 PM Care Teams Farm Supervisor Relationship Specialty Start Date End Date Keshia Parker MD [address] [place] [address] PCP - General 03/30/17
--- OUTSIDE RECORDS SUMMARY | 2025-07-02 16:02 | XMS_ITS | Clinical Summary ---
Author Organization [facility] Address [address] [address] Phone Care Team Providers Care Salesperson Fashion Accessories Name Role Phone Unavailable Primary Care Provider [...]
--- OUTSIDE RECORDS SUMMARY | 2025-07-02 16:02 | XMS_ITS | Encounter Summary ---
Author Organization [facility] Address [address] [place] [address] Phone Care Team Providers Care Bond Broker Name Role Phone Keshia Parker MD Primary Care Provider [phone] Keshia Parker MD Unavailable [phone] Encounter Details Date Type Department Care Team (Late st Contact Info) Description 02/15/2018 Orders Only [facility] ProviderJsoé MD [address] [place] [address] Social History Tobacco Use Types Packs/Day Years Used Date Smoking Tobacco: Never Comments Unknown Sex and Gender Information Value Date Recorded Sex Assigned at Not on file Legal Sex Female 2:58 AM CASINO HOST Gender Identity Not on file Sexual Orientation [...] on filedocumented in this encounter Care Teams Bond Broker Relationship Specialty Start Date End Date Keshia Parker MD [address] [place] [address] PCP - General 03/30/17 Keshia Parker MD [address] [place] [address] Referring Physician Internal Medicine 02/25/21 04/19/21 documented as of this encounter
--- OUTSIDE RECORDS SUMMARY | 2025-07-02 16:02 | XMS_ITS ---
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
== END 2025-07-02 15:53 | disposition home or self-care (01) ==
LOC: ANHIMG 15:57
PROVIDERS: PCP Internal Medicine; Visit Provider Internal Medicine
DX: R10.12 Left upper quadrant pain (principal)
CPT/HCPCS: 74177; Q9967

== ENCOUNTER 2025-07-04 12:45 | Outpatient (CLI) | payer OTHER, SELFPAY ==
[2025-07-04 12:56] LABS: Hematocrit 40.7 % (35.0-49.0); Hemoglobin 13.0 g/dL (12.0-15.0); Mean Corpuscular HGB Conc 31.9 g/dL (32-36); Mean Corpuscular Hemoglobin 29.0 pg (27.0-31.0); Mean Corpuscular Volume 90.6 fL (78.0-102.0); Platelet Count Result 258 K/mm3 (150-420); Red Blood Count 4.49 M/mm3 (4.20-5.40); White Blood Count 4.2 K/mm3 (4.8-10.8)
[2025-07-04 13:07] LABS: Alanine Aminotransferase 24 U/L (6-35); Albumin Level 4.3 g/dL (3.5-5.1); Alkaline Phosphatase 69 U/L (38-126); Anion Gap 10 mmol/L (4-12); Aspartate Amino Transferase 35 U/L (14-36); Bilirubin,Total 0.4 mg/dL (0.2-1.3); Blood Urea Nitrogen 7 mg/dL (7-17); Calcium 9.0 mg/dL (8.4-10.2); Carbon Dioxide 27 mmol/L (22-30); Chloride 106 mmol/L (98-107); Estimated Glomerular Filt Rate 52; Glucose 118 mg/dL (65-110); Osmolality Calculated 295 mOsm/kg (285-295); Potassium 3.7 mmol/L (3.4-5.0); Sodium 143 mmol/L (137-145); Total Protein 6.9 g/dL (6.3-8.2)
--- OUTSIDE RECORDS SUMMARY | 2025-07-04 13:27 | XMS_ITS | Clinical Summary ---
Author Organization [facility] Address [address] [address] Phone Care Team Providers Care Math Specialist Name Role Phone Unavailable Primary Care Provider [...]
== END 2025-07-04 12:46 | disposition home or self-care (01) ==
LOC: CHSLAB 12:47
PROVIDERS: PCP Internal Medicine; Visit Provider Nurse Practitioner Family
DX: K57.92 Diverticulitis of intestine, part unspecified, without perforation or abscess without bleeding (principal)
CPT/HCPCS: 36415; 80053; 85027

== ENCOUNTER 2025-07-07 10:48 | Outpatient (CLI) | payer OTHER, SELFPAY ==
[2025-07-07 11:04] LABS: Hematocrit 40.7 % (35.0-49.0); Hemoglobin 13.2 g/dL (12.0-15.0); Mean Corpuscular HGB Conc 32.4 g/dL (32-36); Mean Corpuscular Hemoglobin 29.2 pg (27.0-31.0); Mean Corpuscular Volume 90.0 fL (78.0-102.0); Platelet Count Result 256 K/mm3 (150-420); Red Blood Count 4.52 M/mm3 (4.20-5.40); White Blood Count 4.5 K/mm3 (4.8-10.8)
[2025-07-07 11:29] LABS: Alanine Aminotransferase 24 U/L (6-35); Albumin Level 4.2 g/dL (3.5-5.1); Alkaline Phosphatase 65 U/L (38-126); Anion Gap 9 mmol/L (4-12); Aspartate Amino Transferase 39 U/L (14-36); Bilirubin,Total 0.3 mg/dL (0.2-1.3); Blood Urea Nitrogen 7 mg/dL (7-17); Calcium 9.3 mg/dL (8.4-10.2); Carbon Dioxide 27 mmol/L (22-30); Chloride 107 mmol/L (98-107); Estimated Glomerular Filt Rate > 60; Glucose 86 mg/dL (65-110); Osmolality Calculated 293 mOsm/kg (285-295); Potassium 4.2 mmol/L (3.4-5.0); Sodium 143 mmol/L (137-145); Total Protein 6.9 g/dL (6.3-8.2)
--- OUTSIDE RECORDS SUMMARY | 2025-07-07 12:31 | XMS_ITS | Encounter Summary ---
Author Organization [facility] Address [address] [place] [address] Phone Care Team Providers Care Vest Presser Name Role Phone Keshia Parker MD Primary Care Provider [phone] Keshia Parker MD Unavailable [phone] Encounter Details Date Type Department Care Team (Late st Contact Info) Description 02/15/2018 Orders Only [facility] ProviderJosé MD [address] [place] [id number] Social History Tobacco Use Types Packs/Day Years Used Date Smoking Tobacco: Never Comments Unknown Sex and Gender Information Value Date Recorded Sex Assigned at Not on file Legal Sex Female 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
--- OUTSIDE RECORDS SUMMARY | 2025-07-07 12:32 | XMS_ITS ---
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
--- OUTSIDE RECORDS SUMMARY | 2025-07-07 12:32 | XMS_ITS | Clinical Summary ---
Author Organization [facility] Address [address] [address] Phone Care Team Providers Care Licensed Psychiatric Technician Name Role Phone Unavailable Primary Care Provider [...]
--- OUTSIDE RECORDS SUMMARY | 2025-07-07 12:32 | XMS_ITS | Clinical Summary ---
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 Staging:Clinical:FIGO Stage IIB(cT2b, cM0) - Signed by Israel Beck MD on 02/25/2021 Thickened endometrium 02/25/2021 Overview (02/25/2021): Added automatically from request for surgery [id number] Swelling of ankle, right 06/11/2018 Pain and [...] on file 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 FINAL INTERPRETATION SOURCE OF SPECIMEN Liquid [...] clinical information and biopsy results as indicated. [facility] Clinical Laboratory Improvement Amendments (CLIA) mandate that cytologic and histologic results be correlated for laboratory supplier quality engineer & improvement standards. FOR ALL HIGH-GRADE [...] by the Surgical Pathology Department at [facility] as part of an ongoing corporate quality manager program and in compliance with federally [...] by the Surgical Pathology Department of [facility]. It has not been cleared or [...] Female Attending MD: Jaziel Arce M.D. Room: [facility] ENDOSCOPY ROOM 02 Note Status: Finalized [...] The scope was passed under direct vision.The [id number] was introduced through the anusand advanced to [...] Most Recently Relevant to Health Maintenance Insurance [employer] CLAIMS [employer] CLAIMS [facility] CLAIMS Member Subscriber Plan / Payer ( fective 2024-Present) Name:Davis Cherelle Miramontes Relation to Subscriber:Spouse Name:Juancarlos Garcias Darlene Date of :1964 (Home) (Work) Address: [facility] [place] [address] Payer ID:[id number] (NAIC) Group ID:Not on file Type:[employer] Address: [address] [place] [place] [address] Advance Directives For more information, please contact: [phone] * Full Code (Latest Code Status on File) Date Activated Date Inactivated Comments 08/26/2021 9:44 AM 08/26/2021 3:53 PM Care Teams Chimney Builder Brick Relationship Specialty Start Date End Date Keshia Parker MD [address] [place] [address] PCP - General 03/30/17
== END 2025-07-07 10:49 | disposition home or self-care (01) ==
LOC: CHSLAB 10:50
PROVIDERS: PCP Internal Medicine; Visit Provider Nurse Practitioner Family
DX: K57.92 Diverticulitis of intestine, part unspecified, without perforation or abscess without bleeding (principal)
CPT/HCPCS: 36415; 80053; 85027